=== PATIENT | male | born 1950 | race Hispanic/Latino ===

== ENCOUNTER 2019-09-01 00:28 | Inpatient (IN) | payer MEDICARE ==
[2019-09-01] VITALS (37 sets, daily range): BP systolic 118–160; BP diastolic 57–85
[~2019-09-01 00:28] MED LIST: ASPI-555 PO; GLIM1TAB3 PO; LEVO50TA11 PO; METF-444 PO; NITR.4 SL; PRAS10TA6 PO; PRAV20TA4 PO; PREG75 PO; TAMS0.4C32 PO
[2019-09-01] MEDS ORDERED: ONDANSETRON HCL 4 MG/2 ML VIAL ONE (00:56)
[2019-09-01] MEDS ORDERED: MORPHINE SULFATE 4 MG/1ML SYG ONE (00:56)
[2019-09-01] MEDS ORDERED: SODIUM CHLORIDE 0.9% 1000ML 1,000 ML IV ONE ×2 (00:57→05:46)
[2019-09-01 01:25] LABS: BASOPHILS % (AUTO) 1.7 % (0.0-5.0); EOSINOPHILS % (AUTO) 0.5 % (0.0-8.0); HEMATOCRIT 30.2 % (42-54); LYMPHOCYTES % (AUTO) 10.5 % (21.0-51.0); MEAN CORPUSCULAR HEMOGLOBIN 31.2 pg (27.0-33.0); MEAN CORPUSCULAR HGB CONC 33.4 g/dL (32.0-36.0); MEAN CORPUSCULAR VOLUME 93.5 fL (79-99); MONOCYTES % (AUTO) 5.2 % (3.0-13.0); NEUTROPHILS % (AUTO) 82.1 % (40.0-77.0); PLATELET COUNT (AUTO) 177 K/uL (130-400); RED BLOOD CELL COUNT(AUTO) 3.23 MIL/uL (4.50-6.20); RED CELL DISTRIBUTION WIDTH 13.9 % (11.0-15.5); WHITE BLOOD COUNT (AUTO) 14.6 K/uL (4.8-10.8)
[2019-09-01 01:43] LABS: CREATININE 1.1 mg/dL (0.5-1.5); POTASSIUM 5.1 mmol/L (3.5-5.1)
[2019-09-01 01:48] LABS: ALBUMIN 3.3 g/dL (3.5-5.0); BILIRUBIN,TOTAL 0.3 mg/dL (0.2-1.0); TOTAL PROTEIN, SERUM 6.4 g/dL (6.0-8.3)
[2019-09-01] MEDS ORDERED: HYDROMORPHONE 1 MG/1 ML AMP ONE (02:25)
[2019-09-01 02:41] LABS: APPEARANCE,URINE Cloudy (CLEAR); BILIRUBIN,URINE Negative (NEGATIVE); COLOR,URINE Yellow (YELLOW); GLUCOSE, URINE (UA) 500 mg/dL (NEGATIVE); KETONES,URINE Trace mg/dL (NEGATIVE); LEUKOCYTE ESTERASE ,URINE Small (NEGATIVE); NITRATE,URINE Negative (NEGATIVE); OCCULT BLOOD,URINE Small (NEGATIVE); PH,URINE 5.5 (5.0-8.0); PROTEIN,URINE POS 1+ mg/dL (NEGATIVE)
[2019-09-01] MEDS ORDERED: INSULIN HUMULIN R 100 UNIT/ML 3ML ONE (02:48)
[2019-09-01] MEDS ORDERED: CHOL500050 PO (03:01)
[2019-09-01] MEDS ORDERED: FERS325 PO (03:01)
[2019-09-01] MEDS ORDERED: GLIM4TAB5 PO (03:01)
[2019-09-01] MEDS ORDERED: METF-446 PO (03:01)
[2019-09-01] MEDS ORDERED: LEVO25TA54 PO (03:01)
[2019-09-01] MEDS ORDERED: ATOR10 PO (03:01)
[2019-09-01 03:19] LABS: BACTERIA,URINE Few /HPF (None Seen); MUCUS,URINE Few LPF (None Seen)
[2019-09-01 07:27] LABS: HEMATOCRIT 26.4 % (42-54)
--- NOTE | 2019-09-01 07:38 | NUR ---
Received patient from ER at 0540. Awake. Alert and oriented. No c/o pain, sob. Oriented to room, call light, bed controls etc. Initial assessment completed. Call placed to Hospitalist battery container finishing hand AJ to inform of patient arrival to ICU room. Call back from Dr Shelby. Informed of patient consult/admission. Explained call had been placed to AJ to inform him of pt arrival as per his request according to IZZY Brown. No new orders. Care of patient endorsed to Sesar ASHLEY
[2019-09-01] MEDS: MORPHINE SULFATE 4 MG/1ML SYG IV PRN ×2 (12:17→17:16)
[2019-09-01] MEDS ORDERED: ONDANSETRON HCL 4 MG/2 ML VIAL IVP PRN (13:15)
[2019-09-01] MEDS ORDERED: ACETAMINOPHEN 325 MG TAB PO PRN (13:15)
[2019-09-01] MEDS ORDERED: ACETAMINOPHEN 650 MG SUPPOSITORY RC PRN (13:45)
--- NOTE | 2019-09-01 14:15 | NUR ---
DR KAM MADE AWARE VIA PHONE REGARDING NEW CONSULT
--- NOTE | 2019-09-01 14:35 | NUR ---
DC PLAN PATIENT LIVES WITH SPOUSE. INDEPENDENT ABLE TO PERFORM ADL'S. PATIENT HAS NO SERVICES OR DME'S. FEELS SAFE TO RETURN HOME. Addendum: 09/01/19 at 1439 by ISAIAH ALEXANDRE RN CM Amended: Links added.
[2019-09-01 19:10] LABS: HEMATOCRIT 24.4 % (42-54)
--- NOTE | 2019-09-01 21:35 | NUR ---
REPORT GIVEN TO GABI RANGEL. PATIENT TRANSFERRED TO ROOM 205.
--- NOTE | 2019-09-01 23:00 | NUR ---
Patient transferred to room 205 in stable condition. No pain reported. Will continue to monitor.
[2019-09-02] VITALS (7 sets, daily range): BP systolic 111–140; BP diastolic 45–83
[2019-09-02 04:30] LABS: BASOPHILS % (AUTO) 0.8 % (0.0-5.0); EOSINOPHILS % (AUTO) 0.4 % (0.0-8.0); HEMATOCRIT 22.9 % (42-54); LYMPHOCYTES % (AUTO) 24.4 % (21.0-51.0); MEAN CORPUSCULAR HEMOGLOBIN 31.5 pg (27.0-33.0); MEAN CORPUSCULAR HGB CONC 34.1 g/dL (32.0-36.0); MEAN CORPUSCULAR VOLUME 92.5 fL (79-99); MONOCYTES % (AUTO) 9.2 % (3.0-13.0); NEUTROPHILS % (AUTO) 65.2 % (40.0-77.0); PLATELET COUNT (AUTO) 157 K/uL (130-400); RED BLOOD CELL COUNT(AUTO) 2.47 MIL/uL (4.50-6.20); RED CELL DISTRIBUTION WIDTH 14.5 % (11.0-15.5); WHITE BLOOD COUNT (AUTO) 8.3 K/uL (4.8-10.8)
[2019-09-02 04:42] LABS: CREATININE 0.9 mg/dL (0.5-1.5); POTASSIUM 4.5 mmol/L (3.5-5.1)
[2019-09-02] MEDS: MORPHINE SULFATE 4 MG/1ML SYG IV PRN ×4 (05:25→21:34)
[2019-09-02] MEDS: INSULIN HUMULIN R 100 UNIT/ML 3ML SQ SCH ×4 (06:26→21:44)
[2019-09-02 07:10] LABS: HEMATOCRIT 22.7 % (42-54)
[2019-09-02] MEDS: FAMOTIDINE/PF 20 MG/2 ML VIAL IV SCH (08:10)
[2019-09-02] MEDS: ENOXAPARIN SODIUM 30 MG/0.3 ML SQ SCH (08:11)
[2019-09-02] MEDS: METOPROLOL TARTRATE 25 MG TAB PO SCH ×3 (08:13→21:33)
[2019-09-02 13:46] LABS: HEMATOCRIT 22.4 % (42-54)
[2019-09-02] MEDS ORDERED: SODIUM CHLORIDE 0.9% 250 ML IV ONE (14:52)
--- NOTE | 2019-09-02 15:09 | NUR ---
DC PLAN VISITED WITH PATIENT. SPOKE TO HIM REGARDING DC PLAN. PATIENT SAID NEEDS TO GO SOMEPLACE FEELS UNSAFE TO RETURN HOME. MD'S AGREE WITH PATIENT. ORDER FOR SNF. SPOKE TO HIM GAVE OKAY FOR [facility]. Addendum: 09/02/19 at 1510 by ISAIAH ALEXANDRE RN CM Amended: Links added.
[2019-09-02] MEDS: METFORMIN HCL 500 MG TABLET PO SCH (17:29)
[2019-09-02 18:17] LABS: HEMATOCRIT 28.7 % (42-54)
--- NOTE | 2019-09-02 19:49 | NUR ---
ASSESSMENT PATIENT WAS ASSISTED BACK INTO BED. DAUGHTER AT BEDSIDE. COMPLAINTS OF PAIN ON MOVEMENT. NO SIGNS OF DISTRESS. NO SHORTNESS OF BREATH. PATIENT MADE AWARE OF TIME THAT PAIN MEDICATION IS DUE AND WILL BRING AT THAT TIME. CALL LIGHT AND BEDSIDE TABLE WITHIN REACH. NO QUESTIONS, CONCERNS, OR NEEDS AT THIS TIME VOICED. REINFROCED PATIENT TO CALL FOR ANY NEEDS.
[2019-09-02 21:03] LABS: HEMATOCRIT 26.2 % (42-54)
[2019-09-02] MEDS: ATORVASTATIN CALCIUM 10 MG TABLET PO SCH (21:33)
[2019-09-03 04:00] VITALS: BP 151/64
[2019-09-03] MEDS: INSULIN HUMULIN R 100 UNIT/ML 3ML SQ SCH ×4 (06:41→21:06)
[2019-09-03 07:00] VITALS: BP 160/68
--- NOTE | 2019-09-03 07:30 | NUR ---
ASSESSMENT ENCOUNTERED PT IN SEMI GANT'S POSITION, A&OX3, CALM COOPERATIVE AND DOES NOT APPEAR TO BE IN ANY DISTRESS NOR ANY NEURO DEFICITS PRESENT. PT DOES C/O LEFT HIP PAIN WITH REPOSITIONING, HIP TENDER TO TOUCH WITHOUT BRUISING OR EDEMA, PT DENIES SOB, NAUSEA. PT IS ABLE TO TOLERATE FOODS, FLUIDS AND MEDICATION WITH NO THROAT CLEARING COUGH. DP/PT PULSES PALPABLE TO ALL EXTREMITIES. CALL LIGHT WITHIN REACH, FAMILY AT BEDSIDE.
[2019-09-03] MEDS ORDERED: MORPHINE SULFATE 4 MG/1ML SYG IV PRN (09:00)
[2019-09-03] MEDS ORDERED: TRAMADOL HCL 50 MG TABLET PO PRN (09:00)
[2019-09-03] MEDS ORDERED: CHOLECALCIFEROL 50000 UNIT PO SCH (09:00)
[2019-09-03] MEDS: ENOXAPARIN SODIUM 30 MG/0.3 ML SQ SCH (09:00)
[2019-09-03] MEDS ORDERED: LEVOTHYROXINE 25 MCG TABLET PO SCH (09:00)
[2019-09-03 09:34] LABS: HEMATOCRIT 26.2 % (42-54)
[2019-09-03 09:45] LABS: % IRON SATURATION 11.2 % (30-44)
[2019-09-03 11:00] VITALS: BP 163/74
[2019-09-03] MEDS: METOPROLOL TARTRATE 25 MG TAB PO SCH ×3 (12:05→21:00)
[2019-09-03] MEDS: TAMSULOSIN HCL 0.4 MG CAP.ER.24H PO SCH (12:05)
[2019-09-03] MEDS: METFORMIN HCL 500 MG TABLET PO SCH ×2 (12:06→18:22)
[2019-09-03] MEDS: FAMOTIDINE/PF 20 MG/2 ML VIAL IV SCH (12:06)
--- NOTE | 2019-09-03 14:30 | NUR ---
TRANSFER TO 4TH FLOOR REPORT GIVEN TO ROSSANA ASHLEY, PT TRANSFERRED VIA PT BED.
[2019-09-03 14:35] LABS: HEMATOCRIT 25.7 % (42-54)
[2019-09-03 17:00] VITALS: BP 117/51
--- NOTE | 2019-09-03 17:00 | NUR ---
received report form Yasmeen pt in no distress, aaox3, denies any needs at this time, iv intact, patent. family at bedside, as per ant [facility] nurse subhash romero d.c tele monitor.
[2019-09-03] MEDS: TRAMADOL HCL 50 MG TABLET PO PRN (18:24)
[2019-09-03 20:04] VITALS: BP 124/58
[2019-09-03 20:58] LABS: HEMATOCRIT 26.1 % (42-54)
[2019-09-03] MEDS: ATORVASTATIN CALCIUM 10 MG TABLET PO SCH (21:00)
[2019-09-03 23:38] VITALS: BP 118/56
[2019-09-04 04:48] VITALS: BP 114/53
[2019-09-04] MEDS: TRAMADOL HCL 50 MG TABLET PO PRN ×2 (04:50→18:01)
[2019-09-04] MEDS: INSULIN HUMULIN R 100 UNIT/ML 3ML SQ SCH ×4 (05:48→20:57)
[2019-09-04] MEDS ORDERED: LEVOTHYROXINE 25 MCG TABLET PO SCH (06:30)
[2019-09-04 07:40] VITALS: BP 117/58
[2019-09-04] MEDS: TAMSULOSIN HCL 0.4 MG CAP.ER.24H PO SCH (08:16)
[2019-09-04] MEDS: METFORMIN HCL 500 MG TABLET PO SCH ×2 (08:16→17:58)
[2019-09-04] MEDS: FAMOTIDINE/PF 20 MG/2 ML VIAL IV SCH (08:19)
[2019-09-04] MEDS: ENOXAPARIN SODIUM 30 MG/0.3 ML SQ SCH (08:20)
--- NOTE | 2019-09-04 08:30 | NUR ---
STERLING CATHETER REMOVED DISCONTINUED 16FR STERLING CATHETER, NO RESISTANCE NOTED. ENCOURAGED PATIENT TO INCREASE FLUID INTAKE, PROVIDED URINAL AND TO INFORM ME WHEN HE IS ABLE TO URINATE. WILL CONTINUE TO MONITOR.
[2019-09-04] MEDS: METOPROLOL TARTRATE 25 MG TAB PO SCH ×3 (08:48→20:51)
[2019-09-04] MEDS ORDERED: IRON SUCROSE COMPLEX 500 MG in SODIUM CHLORIDE 0.9% 50 ML IV SCH (09:00)
[2019-09-04] MEDS ORDERED: EPOETIN ALFA 10,000 UNIT/ML VIAL SQ SCH (09:00)
[2019-09-04] MEDS ORDERED: TAMSULOSIN HCL 0.4 MG CAP.ER.24H PO SCH (09:00)
[2019-09-04] MEDS: FERROUS SULFATE 325 MG TABLET.DR PO SCH ×3 (10:51→20:53)
[2019-09-04 11:00] VITALS: BP 117/51
--- NOTE | 2019-09-04 12:31 | NUR ---
PATIENT DUE TO VOID AWARE OF DISCHARGE ORDER. HOSPITALIST COMPLETED MEDICATION RECONCILIATION. ASKED ENGINEERING TEACHER TO SET UP [facility]. PATIENT STILL DUE TO VOID AT THIS TIME. WILL CONTINUE TO MONITOR.
--- NOTE | 2019-09-04 16:18 | NUR ---
BLADDER SCAN APPROXIMATELY 8 HOURS HAVE PASSED SINCE STERLING REMOVAL. PERFORMED BLADDER SCAN OBTAINED RESULT OF 229ML. PATIENT REPORTS THAT AT HOME HE USUALLY VOIDS ABOUT 3 TIMES A DAY DUE TO "PROSTATE ISSUES".
--- NOTE | 2019-09-04 16:25 | NUR ---
DR. PERDOMO SPOKE TO HOSPITALIST TO REPORT BLADDER SCAN RESULT OF 229ML. DR. PERDOMO TOLD ME THERE WAS NO NEED TO PERFORM RE-INSERT STERLING CATHETER AND OKAY TO PROCEED WITH DISCHARGE/TRANSFER TO [facility] SINCE PATIENT HAS HISTORY OF BPH, CURRENTLY TAKES FLOMAX 0.4MG PO DAILY, AND BLADDER SCAN READING IS LESS THAN 300ML. Addendum: 09/04/19 at 8 by ROSSANA VILLARREAL RN RN PATIENT AND FAMILY MADE AWARE OF MD RESPONSE.
--- NOTE | 2019-09-04 16:35 | NUR ---
[facility] S[facility] CALLED [facility] [phone] TO ATTEMPT TO GIVE NURSE REPORT. SPOKE TO "TIMMY", WHO TOLD ME HIS POSITION WAS "JUST HERE TO HELP OUT EXTRA", THAT THE "NURSE WOULD CALL ME BACK BECAUSE NO ONE COULD TAKE REPORT AT THIS TIME." PROVIDED MY DIRECT CALLBACK NUMBER TO TIMMY. AWAITING CALLBACK.
[2019-09-04 17:11] VITALS: BP 135/59
--- NOTE | 2019-09-04 17:35 | NUR ---
CEL[facility] SILVAMinh RECEIVED CALLBACK FROM NURSE CELIO OF [facility] [phone]. CELIO DID VERIFY HE RECEIVED MEDICATION RECONCILIATION FAX. INFORMED THAT PATIENT ALSO HAS WRITTEN RX FOR TYLENOL #3 1 TABLET PO Q6H PRN PAIN AND WILL BE PLACED IN PATIENT CHART COPY. INFORMED THAT PATIENT WEIGHT BEARING STATUS (TOE TOUCH WEIGHT BEARING TO LEFT LEG) AND THAT PATIENT REQUIRES MAX ASSIST. INFORMED THAT PATIENT IS PENDING 2 WEEK F/U APPOINTMENT TO BE SCHEDULED WITH DR. KAM. INFORMED THAT PATIENT HAS NOT VOIDED SINCE STERLING CATHETER REMOVAL, BLADDER SCAN RESULTS, AND HOSPITALIST RESPONSE AND OKAY TO PROCEED WITH DISCHARGE/TRANSFER. INFORMED THAT PATIENT WILL BE ARRIVING VIA EMS SINCE PATIENT REQUIRES MAX ASSIST WITH TRANSFERS.
--- NOTE | 2019-09-04 17:40 | NUR ---
DISCHARGE DISCHARGE TEACHING PROVIDED TO PATIENT, PATIENTS , AND PATIENTS DAUGHTER WHO ARE AT PATIENT BEDSIDE AT THIS TIME. INFORMED OF PATIENTS DISCHARGE RX (TYLENOL #3), PENDING 2 WEEK F/U APPT TO BE SCHEDULED WITH DR. KAM, ACTIVITY (TOE TOUCH WEIGHT BEARING TO LEFT LEG) AND PATIENT TO CONTINUE PHYSICAL THERAPY TREATMENT. INFORMED THAT PATIENTS RX (TYLENOL#3) WILL BE PLACED IN PATIENTS CHART COPY FOLDER SO [facility] STAFF MAY FILL RX. REMOVED 20G IV FROM LEFT FA. PATIENTS SIGNED DISCHARGE PAPERWORK.
--- NOTE | 2019-09-04 17:50 | NUR ---
[facility] CALLED [facility] TO REPORT PATIENT READY TO BE PICKED UP
--- NOTE | 2019-09-04 18:55 | NUR ---
[facility] FOLLOW-UP CALLED [facility] TO FOLLOW-UP. WAS INFORMED THAT PATIENT WAS "NEXT ON THE LIST" TO BE PICKED UP.
--- NOTE | 2019-09-04 19:55 | NUR ---
[facility] FOLLOW-UP CALLED [facility] TO FOLLOW-UP, WAS TOLD PATIENT "NEXT ON THE LIST." INFORMED HOUSE SUP. GABI JOHNSON [facility] HAS BEEN CALLED SINCE [phone].
[2019-09-04 20:00] VITALS: BP 102/47
[2019-09-04] MEDS: ATORVASTATIN CALCIUM 10 MG TABLET PO SCH (20:53)
--- NOTE | 2019-09-04 20:58 | NUR ---
VOID VOIDED 300 CC OF LIGHT AYAKA URINE, TOLERATED WELL, AWAITING FOR EMS TRANSPORT
--- NOTE | 2019-09-04 21:37 | NUR ---
DISCHARGE DISCHARGED TO [facility] VIA EMS ACCOMPANIED BY PATIENTS DAUGHTER
== END 2019-09-04 21:37 | DRG 552 ==
LOC: EDH 00:28 → EDHIP 02:15 → 2CH 05:40 → 2AH 23:05 → 4AH 09-03 14:30
PROVIDERS: ADMIT Student in an Organized Health Care Education/Training Program; ATTEND Student in an Organized Health Care Education/Training Program
PROC: 30233N1 Transfusion of Nonautologous Red Blood Cells into Peripheral Vein, Percutaneous Approach (ICD-10-PCS; principal; 2019-09-02)
DX: S32.14XA Type 1 fracture of sacrum, initial encounter for closed fracture (principal); S32.512A Fracture of superior rim of left pubis, initial encounter for closed fracture; S32.592A Other specified fracture of left pubis, initial encounter for closed fracture; S30.0XXA Contusion of lower back and pelvis, initial encounter; E03.9 Hypothyroidism, unspecified; W01.0XXA Fall on same level from slipping, tripping and stumbling without subsequent striking against object, initial encounter; N40.0 Benign prostatic hyperplasia without lower urinary tract symptoms; I10 Essential (primary) hypertension; N32.89 Other specified disorders of bladder; F41.9 Anxiety disorder, unspecified; E78.00 Pure hypercholesterolemia, unspecified; E11.9 Type 2 diabetes mellitus without complications; Y92.009 Unspecified place in unspecified non-institutional (private) residence as the place of occurrence of the external cause; Y93.89 Activity, other specified; Y99.8 Other external cause status; Z82.49 Family history of ischemic heart disease and other diseases of the circulatory system; Z83.3 Family history of diabetes mellitus; Z82.5 Family history of asthma and other chronic lower respiratory diseases; Z82.3 Family history of stroke; Z81.8 Family history of other mental and behavioral disorders; Z82.0 Family history of epilepsy and other diseases of the nervous system; Z95.5 Presence of coronary angioplasty implant and graft; Z79.899 Other long term (current) drug therapy; Z79.82 Long term (current) use of aspirin
CPT/HCPCS: 36415; 36430; 71045; 72192; 73502; 74150; 80048; 80053; 81001; 82948; 83540; 83550; 84484; 85014; 85018; 85025; 86850; 86900; 86901; 86922; 93005; 97039; G0378; J0885; J1170; J1650; J1756; J1815; J2270; J2405; J3490; J7030; P9016

== ENCOUNTER → 2021-05-29 | Outpatient (CLI) | payer MEDICARE ==
[~2021-05-29] VITALS: Ht 172.7 cm; Wt 82.6 kg
[~2021-05-29] MED LIST changes: -ASPI-555 PO; +ASPI-556 PO; +ATOR10 PO; +CHOL500050 PO; +FERS325 PO; -GLIM1TAB3 PO; +GLIM4TAB36 PO; +LEVO25TA54 PO; -LEVO50TA11 PO; -METF-444 PO; +METF-446 PO; -NITR.4 SL; -PRAS10TA6 PO; -PRAV20TA4 PO; -PREG75 PO
[2021-05-29] MEDS: REGADENOSON 0.4 MG/5 ML PF SYG IVP SCH (15:05)
== END | disposition home or self-care (01) ==
LOC: SHCH 08:19
PROVIDERS: ATTEND Internal Medicine Cardiovascular Disease
DX: I25.10 Atherosclerotic heart disease of native coronary artery without angina pectoris (principal); R06.09 Other forms of dyspnea
CPT/HCPCS: 78452; 93017; 96374; A9500 ×2; J2785

== ENCOUNTER → 2021-09-05 | Outpatient (CLI) | payer MEDICARE | END | disposition home or self-care (01) | LOC: SHCH 08:12 | PROVIDERS: ATTEND Internal Medicine Cardiovascular Disease | DX: I65.23 Occlusion and stenosis of bilateral carotid arteries (principal); I25.10 Atherosclerotic heart disease of native coronary artery without angina pectoris | CPT/HCPCS: 93880 ==

== ENCOUNTER 2021-11-13 17:46 | Inpatient (IN) | payer MEDICARE ==
[~2021-11-13] VITALS: Ht 170.2 cm; Wt 82.9 kg
[2021-11-13 18:22] LABS: ABG BASE EXCESS -3.5 mmol/L (-2.0-3.0); ABG HCO3 19.6 mmol/L (21.0-28.0); ABG OXYGEN SATURATION 94.3 % (95.0-99.0); ABG PCO2 31 mmHg (35-48)
[2021-11-13] MEDS ORDERED: DOXYCYCLINE HYCLATE 100 MG TABLET PO ONE (18:30)
[2021-11-13] MEDS ORDERED: DEXAMETHASONE SOD PHOSPHATE 4 MG/ML 1ML VIAL IVP ONE (18:30)
[2021-11-13] MEDS ORDERED: CEFTRIAXONE 1G VIAL IVP ONE (18:30)
[2021-11-13 18:36] LABS: BASOPHILS % (AUTO) 0.3 % (0.0-5.0); HEMATOCRIT 33.4 % (42-54); LYMPHOCYTES % (AUTO) 9.2 % (21.0-51.0); MEAN CORPUSCULAR HEMOGLOBIN 30.3 pg (27.0-33.0); MEAN CORPUSCULAR HGB CONC 36.5 g/dL (32.0-36.0); MEAN CORPUSCULAR VOLUME 83.1 fL (79-99); MONOCYTES % (AUTO) 5.9 % (3.0-13.0); NEUTROPHILS % (AUTO) 83.9 % (40.0-77.0); PLATELET COUNT (AUTO) 307 K/uL (130-400); RED BLOOD CELL COUNT(AUTO) 4.02 MIL/uL (4.50-6.20); RED CELL DISTRIBUTION WIDTH 13.5 % (11.0-15.5); WHITE BLOOD COUNT (AUTO) 8.7 K/uL (4.8-10.8)
[2021-11-13 18:59] LABS: INFLUENZA TYPE A NEGATIVE FOR TYPE A (NEG)
[2021-11-13 19:00] LABS: INFLUENZA TYPE B NEGATIVE FOR TYPE B (NEG)
[2021-11-13 19:01] LABS: B-TYPE NATRIURETIC PEPTIDE 232 pg/mL (0-100)
[2021-11-13 19:54] LABS: CRP QUANTITATIVE 81.5 mg/L (0.00-9.0)
[2021-11-13 20:19] LABS: ALBUMIN 2.5 g/dL (3.5-5.0); BILIRUBIN,TOTAL 0.6 mg/dL (0.2-1.0); TOTAL PROTEIN, SERUM 6.9 g/dL (6.0-8.3)
[2021-11-13] MEDS ORDERED: ERGOCALCIFEROL (VITAMIN D2) 50,000 UNIT CAPSULE PO ONE (20:30)
[2021-11-13] MEDS ORDERED: ASPIRIN 81MG CHEW TAB PO ONE (20:30)
[2021-11-13] MEDS ORDERED: ACETAMINOPHEN 325 MG TAB PO PRN (20:30)
[2021-11-13] MEDS ORDERED: LACTATED RINGERS 1000ML 1,000 ML IV SCH (20:30)
[2021-11-13] MEDS ORDERED: GUAIFENESIN-DM 200/20 MG 10 ML PO PRN (20:30)
[2021-11-13] MEDS ORDERED: ONDANSETRON 4MG INJ IV PRN (20:30)
[2021-11-13] MEDS ORDERED: NITROGLYCERIN 0.4 MG SL TAB SL PRN (20:30)
[2021-11-13] MEDS: DOXYCYCLINE 100MG+NS 250ML IV SCH (20:48)
[2021-11-13] MEDS: HEPARIN 5,000 UNIT VIAL SQ SCH (20:48)
[2021-11-13] MEDS: ALBUTEROL INHALER 90MCG/INH IH SCH (20:48)
[2021-11-13] MEDS ORDERED: METO-391 PO (21:12)
[2021-11-13] MEDS ORDERED: ATOR10TA69 PO (21:12)
[2021-11-13] MEDS ORDERED: FERR325T22 PO (21:12)
[2021-11-13] MEDS ORDERED: TAMS-1 PO (21:12)
[2021-11-13] MEDS ORDERED: AEC81 PO (21:12)
[2021-11-13] MEDS ORDERED: METF-446 PO (21:12)
[2021-11-13] MEDS ORDERED: ISOS30TA92 PO (21:12)
[2021-11-13] MEDS ORDERED: LEVO25CA4 PO (21:12)
[2021-11-13] MEDS ORDERED: GLIM4TAB36 PO (21:12)
[2021-11-13 21:45] LABS: APPEARANCE,URINE Clear (CLEAR); BILIRUBIN,URINE Negative (NEGATIVE); COLOR,URINE Yellow (YELLOW); GLUCOSE, URINE (UA) >=1000 mg/dL (NEGATIVE); KETONES,URINE 15 mg/dL (NEGATIVE); LEUKOCYTE ESTERASE ,URINE Negative (NEGATIVE); NITRATE,URINE Negative (NEGATIVE); OCCULT BLOOD,URINE Trace (NEGATIVE); PH,URINE 6.5 (5.0-8.0); PROTEIN,URINE Negative (NEGATIVE); UROBILINOGEN,URINE 0.2 mg/dL (0.2-1.0)
[2021-11-13 21:56] LABS: BACTERIA,URINE Rare /HPF (None Seen); RBC,URINE 0-1 /HPF (0-1); SQUAMOUS EPITHELIAL CELL,UR Rare /HPF (0-2); WBC,URINE 0-1 /HPF (0-1)
[2021-11-13] MEDS: 0.9%NACL 1000ML 1,000 ML IV SCH (22:37)
[2021-11-14] MEDS: ALBUTEROL INHALER 90MCG/INH IH SCH ×4 (02:21→20:38)
[2021-11-14 05:26] LABS: BASOPHILS % (AUTO) 0.2 % (0.0-5.0); LYMPHOCYTES % (AUTO) 9.6 % (21.0-51.0); MEAN CORPUSCULAR HEMOGLOBIN 29.2 pg (27.0-33.0); MEAN CORPUSCULAR HGB CONC 34.1 g/dL (32.0-36.0); MEAN CORPUSCULAR VOLUME 85.6 fL (79-99); MONOCYTES % (AUTO) 5.4 % (3.0-13.0); NEUTROPHILS % (AUTO) 83.8 % (40.0-77.0); PLATELET COUNT (AUTO) 342 K/uL (130-400); RED BLOOD CELL COUNT(AUTO) 3.97 MIL/uL (4.50-6.20); RED CELL DISTRIBUTION WIDTH 13.5 % (11.0-15.5); WHITE BLOOD COUNT (AUTO) 5.2 K/uL (4.8-10.8)
[2021-11-14 05:42] LABS: HEMOGLOBIN A1C 8.8 % (4.0-6.0)
[2021-11-14] MEDS: CEFTRIAXONE 1G VIAL IVP SCH ×2 (06:05→18:15)
[2021-11-14 06:06] LABS: ALBUMIN 2.6 g/dL (3.5-5.0); CREATININE 0.6 mg/dL (0.5-1.5); POTASSIUM 4.4 mmol/L (3.5-5.1)
[2021-11-14 06:40] LABS: BILIRUBIN,TOTAL 0.7 mg/dL (0.2-1.0); CRP QUANTITATIVE 102.4 mg/L (0.00-9.0); TOTAL PROTEIN, SERUM 7.1 g/dL (6.0-8.3)
[2021-11-14] MEDS: INSULIN HUMULIN R 100 UNIT/ML 3ML SQ SCH ×4 (07:28→20:39)
[2021-11-14] MEDS: LEVOTHYROXINE 25 MCG TABLET PO SCH (07:28)
[2021-11-14] MEDS: 0.9%NACL 1000ML 1,000 ML IV SCH (08:30)
[2021-11-14] MEDS: HEPARIN 5,000 UNIT VIAL SQ SCH ×3 (08:53→20:38)
[2021-11-14] MEDS: DOXYCYCLINE 100MG+NS 250ML IV SCH ×2 (08:58→20:38)
[2021-11-14] MEDS: METOPROLOL SUCCINATE 50 MG TAB.SR.24H PO SCH (08:59)
[2021-11-14] MEDS: TAMSULOSIN HCL 0.4 MG CAP.ER.24H PO SCH (08:59)
[2021-11-14] MEDS: ZINC SULFATE 220 CAPSULE PO SCH (08:59)
[2021-11-14] MEDS ORDERED: DEXAMETHASONE SOD PHOSPHATE 4 MG/ML 1ML VIAL IVP SCH (09:00)
[2021-11-14] MEDS ORDERED: ASPIRIN 81MG CHEW TAB PO SCH (09:00)
[2021-11-14] MEDS: ISOSORBIDE MONO 30MG SR TAB PO SCH (09:00)
[2021-11-14] MEDS: ASCORBIC ACID 500 MG TAB PO SCH (09:00)
[2021-11-14] MEDS: ASPIRIN 81 MG EC TAB PO SCH (09:01)
[2021-11-14] MEDS: FERROUS SULFATE 325 MG TABLET.DR PO SCH (09:01)
[2021-11-14] MEDS: PANTOPRAZOLE 40 MG/VIAL IVP SCH (09:39)
[2021-11-14] MEDS ORDERED: PHARMACY COMMUNICATION MISC SCH (10:00)
[2021-11-14] MEDS ORDERED: SOLU-MEDROL 125MG VIAL IVP SCH (11:00)
[2021-11-14] MEDS ORDERED: ENOXAPARIN SODIUM 40 MG/0.4 ML SYRINGE SQ SCH (11:18)
[2021-11-14] MEDS: BARICITINIB (EUA) 2 MG TABLET PO SCH (14:46)
[2021-11-14] MEDS ORDERED: COMPOUND IV REFRIGERATED 1 EACH IVSOLN MISC PRN (15:00)
[2021-11-14] MEDS ORDERED: REMDESIVIR (EUA) 520 200 MG in 0.9% NACL 250ML 250 ML IV ONE (15:00)
[2021-11-14 15:56] LABS: CREATININE 0.8 mg/dL (0.5-1.5); POTASSIUM 3.7 mmol/L (3.5-5.1)
[2021-11-14] MEDS: ATORVASTATIN 10 MG TABLET PO SCH (20:38)
[2021-11-14] MEDS: INSULIN GLARGINE 100 UNITS/ML 10 ML VIAL SQ SCH (20:39)
[2021-11-14] MEDS: SOLU-MEDROL 40MG VIAL IVP SCH (21:35)
[2021-11-15] MEDS: ALBUTEROL INHALER 90MCG/INH IH SCH ×4 (04:13→19:54)
[2021-11-15 04:53] VITALS: BP 150/61
[2021-11-15 05:47] LABS: HEMATOCRIT 29.6 % (42-54); LYMPHOCYTES % (AUTO) 16.9 % (21.0-51.0); MEAN CORPUSCULAR HEMOGLOBIN 29.9 pg (27.0-33.0); MEAN CORPUSCULAR HGB CONC 34.8 g/dL (32.0-36.0); MONOCYTES % (AUTO) 6.6 % (3.0-13.0); NEUTROPHILS % (AUTO) 75.5 % (40.0-77.0); PLATELET COUNT (AUTO) 320 K/uL (130-400); RED BLOOD CELL COUNT(AUTO) 3.44 MIL/uL (4.50-6.20); RED CELL DISTRIBUTION WIDTH 13.3 % (11.0-15.5); WHITE BLOOD COUNT (AUTO) 6.2 K/uL (4.8-10.8)
[2021-11-15] MEDS: REMDESIVIR LABS MISC SCH (06:00)
[2021-11-15] MEDS: CEFTRIAXONE 1G VIAL IVP SCH ×2 (06:04→17:25)
[2021-11-15] MEDS: SOLU-MEDROL 40MG VIAL IVP SCH ×3 (06:04→21:21)
[2021-11-15] MEDS: LEVOTHYROXINE 25 MCG TABLET PO SCH (06:04)
[2021-11-15] MEDS: INSULIN HUMULIN R 100 UNIT/ML 3ML SQ SCH ×4 (06:06→19:56)
[2021-11-15 06:29] LABS: ALBUMIN 2.1 g/dL (3.5-5.0); BILIRUBIN,TOTAL 0.3 mg/dL (0.2-1.0); CRP QUANTITATIVE 39.2 mg/L (0.00-9.0); POTASSIUM 4.3 mmol/L (3.5-5.1)
[2021-11-15 08:00] VITALS: BP 142/69
[2021-11-15] MEDS: DOXYCYCLINE 100MG+NS 250ML IV SCH ×2 (09:01→19:54)
[2021-11-15] MEDS: ASPIRIN 81 MG EC TAB PO SCH (09:03)
[2021-11-15] MEDS: PANTOPRAZOLE 40 MG/VIAL IVP SCH (09:03)
[2021-11-15] MEDS: FERROUS SULFATE 325 MG TABLET.DR PO SCH (09:03)
[2021-11-15] MEDS: ISOSORBIDE MONO 30MG SR TAB PO SCH (09:03)
[2021-11-15] MEDS: TAMSULOSIN HCL 0.4 MG CAP.ER.24H PO SCH (09:03)
[2021-11-15] MEDS: METOPROLOL SUCCINATE 50 MG TAB.SR.24H PO SCH (09:04)
[2021-11-15] MEDS: ZINC SULFATE 220 CAPSULE PO SCH (09:04)
[2021-11-15] MEDS: ASCORBIC ACID 500 MG TAB PO SCH (09:04)
[2021-11-15] MEDS: BARICITINIB (EUA) 2 MG TABLET PO SCH (09:04)
[2021-11-15] MEDS: HEPARIN 5,000 UNIT VIAL SQ SCH (09:09)
[2021-11-15 11:00] VITALS: BP 112/49
[2021-11-15] MEDS ORDERED: INSULIN HUMULIN R 100 UNIT/ML 3ML SQ SCH (12:30)
[2021-11-15] MEDS: REMDESIVIR (EUA) 520 100 MG in 0.9% NACL 250ML 250 ML IV SCH (14:30)
[2021-11-15 16:00] VITALS: BP 131/61
[2021-11-15] MEDS: BISACODYL 5 MG TABLET.DR PO SCH (19:53)
[2021-11-15] MEDS: ENOXAPARIN SODIUM 40 MG/0.4 ML SYRINGE SQ SCH (19:54)
[2021-11-15] MEDS: ATORVASTATIN 10 MG TABLET PO SCH (19:54)
[2021-11-15 19:56] VITALS: BP 145/62
[2021-11-15] MEDS: INSULIN GLARGINE 100 UNITS/ML 10 ML VIAL SQ SCH (19:56)
[2021-11-15 23:52] VITALS: BP 131/57
[2021-11-16] MEDS: ALBUTEROL INHALER 90MCG/INH IH SCH ×4 (02:49→19:30)
[2021-11-16 03:24] VITALS: BP 138/54
[2021-11-16 04:40] LABS: HEMATOCRIT 29.5 % (42-54); LYMPHOCYTES % (AUTO) 13.3 % (21.0-51.0); MEAN CORPUSCULAR HEMOGLOBIN 29.3 pg (27.0-33.0); MEAN CORPUSCULAR HGB CONC 33.2 g/dL (32.0-36.0); MEAN CORPUSCULAR VOLUME 88.1 fL (79-99); MONOCYTES % (AUTO) 10.4 % (3.0-13.0); NEUTROPHILS % (AUTO) 74.9 % (40.0-77.0); PLATELET COUNT (AUTO) 352 K/uL (130-400); RED BLOOD CELL COUNT(AUTO) 3.35 MIL/uL (4.50-6.20); RED CELL DISTRIBUTION WIDTH 13.9 % (11.0-15.5); WHITE BLOOD COUNT (AUTO) 7.6 K/uL (4.8-10.8)
[2021-11-16 05:03] LABS: ALBUMIN 2.2 g/dL (3.5-5.0); BILIRUBIN,TOTAL 0.3 mg/dL (0.2-1.0); CREATININE 0.9 mg/dL (0.5-1.5); CRP QUANTITATIVE 20.2 mg/L (0.00-9.0); POTASSIUM 3.8 mmol/L (3.5-5.1); TOTAL PROTEIN, SERUM 5.8 g/dL (6.0-8.3)
[2021-11-16] MEDS: REMDESIVIR LABS MISC SCH (05:39)
[2021-11-16] MEDS: SOLU-MEDROL 40MG VIAL IVP SCH ×3 (05:44→22:16)
[2021-11-16] MEDS: LEVOTHYROXINE 25 MCG TABLET PO SCH (05:44)
[2021-11-16] MEDS: CEFTRIAXONE 1G VIAL IVP SCH ×2 (05:44→17:11)
[2021-11-16] MEDS: INSULIN HUMULIN R 100 UNIT/ML 3ML SQ SCH ×7 (05:49→19:41)
[2021-11-16 08:00] VITALS: BP 110/77
[2021-11-16] MEDS: PANTOPRAZOLE 40 MG/VIAL IVP SCH (08:08)
[2021-11-16] MEDS: DOXYCYCLINE 100MG+NS 250ML IV SCH ×2 (08:09→19:38)
[2021-11-16] MEDS: TAMSULOSIN HCL 0.4 MG CAP.ER.24H PO SCH (08:09)
[2021-11-16] MEDS: FERROUS SULFATE 325 MG TABLET.DR PO SCH (08:09)
[2021-11-16] MEDS: ASPIRIN 81 MG EC TAB PO SCH (08:09)
[2021-11-16] MEDS: BISACODYL 5 MG TABLET.DR PO SCH ×2 (08:09→19:39)
[2021-11-16] MEDS: METOPROLOL SUCCINATE 50 MG TAB.SR.24H PO SCH (08:10)
[2021-11-16] MEDS: ENOXAPARIN SODIUM 40 MG/0.4 ML SYRINGE SQ SCH ×2 (08:10→19:39)
[2021-11-16] MEDS: ZINC SULFATE 220 CAPSULE PO SCH (08:10)
[2021-11-16] MEDS: ASCORBIC ACID 500 MG TAB PO SCH (08:10)
[2021-11-16] MEDS: ISOSORBIDE MONO 30MG SR TAB PO SCH (08:11)
[2021-11-16] MEDS ORDERED: 0.9% NACL 250ML 250 ML ONE (08:35)
[2021-11-16] MEDS: BARICITINIB (EUA) 2 MG TABLET PO SCH (09:06)
[2021-11-16 12:00] VITALS: BP 115/60
[2021-11-16] MEDS: REMDESIVIR (EUA) 520 100 MG in 0.9% NACL 250ML 250 ML IV SCH (14:21)
[2021-11-16 16:00] VITALS: BP 136/74
[2021-11-16] MEDS: FUROSEMIDE 20MG VIAL IV SCH (19:38)
[2021-11-16] MEDS: ATORVASTATIN 10 MG TABLET PO SCH (19:39)
[2021-11-16] MEDS: INSULIN GLARGINE 100 UNITS/ML 10 ML VIAL SQ SCH (19:43)
[2021-11-16 20:00] VITALS: BP 135/74
[2021-11-16] MEDS ORDERED: MAGNESIUM CITRATE 296 ML SOLUTION PO ONE (20:00)
[2021-11-17] VITALS: BP 138/59
[2021-11-17] MEDS: ALBUTEROL INHALER 90MCG/INH IH SCH ×4 (02:43→20:36)
[2021-11-17] MEDS: REMDESIVIR LABS MISC SCH (02:43)
[2021-11-17 04:00] VITALS: BP 129/73
[2021-11-17] MEDS: FUROSEMIDE 20MG VIAL IV SCH ×2 (05:30→20:26)
[2021-11-17] MEDS: CEFTRIAXONE 1G VIAL IVP SCH ×2 (05:31→17:36)
[2021-11-17] MEDS: LEVOTHYROXINE 25 MCG TABLET PO SCH (05:31)
[2021-11-17] MEDS: SOLU-MEDROL 40MG VIAL IVP SCH ×3 (05:31→20:26)
[2021-11-17] MEDS: INSULIN HUMULIN R 100 UNIT/ML 3ML SQ SCH ×7 (05:52→20:29)
[2021-11-17 06:00] LABS: HEMATOCRIT 31.3 % (42-54); LYMPHOCYTES % (AUTO) 13.7 % (21.0-51.0); MEAN CORPUSCULAR HEMOGLOBIN 29.3 pg (27.0-33.0); MEAN CORPUSCULAR HGB CONC 33.2 g/dL (32.0-36.0); MEAN CORPUSCULAR VOLUME 88.2 fL (79-99); MONOCYTES % (AUTO) 8.9 % (3.0-13.0); NEUTROPHILS % (AUTO) 76.3 % (40.0-77.0); PLATELET COUNT (AUTO) 354 K/uL (130-400); RED BLOOD CELL COUNT(AUTO) 3.55 MIL/uL (4.50-6.20); RED CELL DISTRIBUTION WIDTH 14.2 % (11.0-15.5); WHITE BLOOD COUNT (AUTO) 6.6 K/uL (4.8-10.8)
[2021-11-17 06:30] LABS: B-TYPE NATRIURETIC PEPTIDE 87 pg/mL (0-100)
[2021-11-17 06:32] LABS: ALBUMIN 2.2 g/dL (3.5-5.0); BILIRUBIN,TOTAL 0.4 mg/dL (0.2-1.0); CREATININE 0.9 mg/dL (0.5-1.5); CRP QUANTITATIVE 13.6 mg/L (0.00-9.0); TOTAL PROTEIN, SERUM 5.5 g/dL (6.0-8.3)
[2021-11-17 06:57] LABS: ABG BASE EXCESS 3.2 mmol/L (-2.0-3.0); ABG HCO3 26.8 mmol/L (21.0-28.0); ABG OXYGEN SATURATION 89.4 % (95.0-99.0); ABG PCO2 38 mmHg (35-48)
[2021-11-17 08:00] VITALS: BP 153/75
[2021-11-17] MEDS: TAMSULOSIN HCL 0.4 MG CAP.ER.24H PO SCH (08:15)
[2021-11-17] MEDS: PANTOPRAZOLE 40 MG/VIAL IVP SCH (08:15)
[2021-11-17] MEDS: FERROUS SULFATE 325 MG TABLET.DR PO SCH (08:15)
[2021-11-17] MEDS: BISACODYL 5 MG TABLET.DR PO SCH ×2 (08:15→20:26)
[2021-11-17] MEDS: ASPIRIN 81 MG EC TAB PO SCH (08:15)
[2021-11-17] MEDS: DOXYCYCLINE 100MG+NS 250ML IV SCH ×2 (08:15→20:26)
[2021-11-17] MEDS: ASCORBIC ACID 500 MG TAB PO SCH (08:16)
[2021-11-17] MEDS: ZINC SULFATE 220 CAPSULE PO SCH (08:16)
[2021-11-17] MEDS: ISOSORBIDE MONO 30MG SR TAB PO SCH (08:16)
[2021-11-17] MEDS: METOPROLOL SUCCINATE 50 MG TAB.SR.24H PO SCH (08:16)
[2021-11-17] MEDS: ENOXAPARIN SODIUM 40 MG/0.4 ML SYRINGE SQ SCH ×2 (08:17→20:28)
[2021-11-17] MEDS: BARICITINIB (EUA) 2 MG TABLET PO SCH (09:02)
[2021-11-17] MEDS ORDERED: FUROSEMIDE 20MG VIAL IV SCH (10:00)
[2021-11-17 11:02] VITALS: BP 128/67
[2021-11-17] MEDS: REMDESIVIR (EUA) 520 100 MG in 0.9% NACL 250ML 250 ML IV SCH (14:28)
[2021-11-17 16:06] VITALS: BP 135/65
[2021-11-17 20:00] VITALS: BP 137/58
[2021-11-17] MEDS: ATORVASTATIN 10 MG TABLET PO SCH (20:26)
[2021-11-17] MEDS: INSULIN GLARGINE 100 UNITS/ML 10 ML VIAL SQ SCH (20:30)
[2021-11-18] VITALS: BP 131/78
[2021-11-18] MEDS: ALBUTEROL INHALER 90MCG/INH IH SCH ×4 (02:01→19:17)
[2021-11-18 04:00] VITALS: BP 134/71
[2021-11-18 04:55] LABS: HEMATOCRIT 31.9 % (42-54); LYMPHOCYTES % (AUTO) 8.7 % (21.0-51.0); MEAN CORPUSCULAR HEMOGLOBIN 28.8 pg (27.0-33.0); MEAN CORPUSCULAR HGB CONC 32.9 g/dL (32.0-36.0); MEAN CORPUSCULAR VOLUME 87.4 fL (79-99); MONOCYTES % (AUTO) 9.4 % (3.0-13.0); NEUTROPHILS % (AUTO) 81.1 % (40.0-77.0); PLATELET COUNT (AUTO) 373 K/uL (130-400); RED BLOOD CELL COUNT(AUTO) 3.65 MIL/uL (4.50-6.20); RED CELL DISTRIBUTION WIDTH 14.1 % (11.0-15.5); WHITE BLOOD COUNT (AUTO) 8.9 K/uL (4.8-10.8)
[2021-11-18 05:04] LABS: POTASSIUM 3.8 mmol/L (3.5-5.1)
[2021-11-18] MEDS: INSULIN HUMULIN R 100 UNIT/ML 3ML SQ SCH ×7 (05:19→20:20)
[2021-11-18] MEDS: REMDESIVIR LABS MISC SCH (06:00)
[2021-11-18] MEDS: LEVOTHYROXINE 25 MCG TABLET PO SCH (06:10)
[2021-11-18] MEDS: CEFTRIAXONE 1G VIAL IVP SCH ×2 (06:10→18:04)
[2021-11-18] MEDS: SOLU-MEDROL 40MG VIAL IVP SCH ×2 (06:11→18:04)
[2021-11-18] MEDS: FUROSEMIDE 20MG VIAL IV SCH ×2 (06:15→19:19)
[2021-11-18 07:10] VITALS: BP 131/66
[2021-11-18] MEDS ORDERED: 0.9% NACL 250ML 250 ML ONE (09:05)
[2021-11-18] MEDS: PANTOPRAZOLE 40 MG/VIAL IVP SCH (09:12)
[2021-11-18] MEDS: ENOXAPARIN SODIUM 40 MG/0.4 ML SYRINGE SQ SCH ×2 (09:12→20:19)
[2021-11-18] MEDS: BISACODYL 5 MG TABLET.DR PO SCH ×2 (09:12→20:17)
[2021-11-18] MEDS: ASPIRIN 81 MG EC TAB PO SCH (09:13)
[2021-11-18] MEDS: ISOSORBIDE MONO 30MG SR TAB PO SCH (09:13)
[2021-11-18] MEDS: ASCORBIC ACID 500 MG TAB PO SCH (09:13)
[2021-11-18] MEDS: TAMSULOSIN HCL 0.4 MG CAP.ER.24H PO SCH (09:13)
[2021-11-18] MEDS: METOPROLOL SUCCINATE 50 MG TAB.SR.24H PO SCH (09:13)
[2021-11-18] MEDS: ZINC SULFATE 220 CAPSULE PO SCH (09:13)
[2021-11-18] MEDS: BARICITINIB (EUA) 2 MG TABLET PO SCH (09:13)
[2021-11-18] MEDS: FERROUS SULFATE 325 MG TABLET.DR PO SCH (09:13)
[2021-11-18] MEDS: DOXYCYCLINE 100MG+NS 250ML IV SCH ×2 (09:14→20:17)
[2021-11-18 11:00] VITALS: BP 136/67
[2021-11-18 13:35] LABS: ALBUMIN 2.3 g/dL (3.5-5.0); BILIRUBIN,DIRECT 0.2 mg/dL (0.0-0.3); BILIRUBIN,TOTAL 0.3 mg/dL (0.2-1.0); TOTAL PROTEIN, SERUM 5.7 g/dL (6.0-8.3)
[2021-11-18 15:20] VITALS: BP 114/64
[2021-11-18] MEDS: REMDESIVIR (EUA) 520 100 MG in 0.9% NACL 250ML 250 ML IV SCH (15:25)
[2021-11-18 20:00] VITALS: BP 123/68
[2021-11-18] MEDS: ATORVASTATIN 10 MG TABLET PO SCH (20:17)
[2021-11-18] MEDS: INSULIN GLARGINE 100 UNITS/ML 10 ML VIAL SQ SCH (20:21)
[2021-11-19] VITALS (7 sets, daily range): BP systolic 106–138; BP diastolic 52–67
[2021-11-19] MEDS: ALBUTEROL INHALER 90MCG/INH IH SCH ×4 (01:28→20:29)
[2021-11-19 04:06] LABS: BASOPHILS % (AUTO) 0.1 % (0.0-5.0); HEMATOCRIT 32.7 % (42-54); LYMPHOCYTES % (AUTO) 9.7 % (21.0-51.0); MEAN CORPUSCULAR HEMOGLOBIN 29.7 pg (27.0-33.0); MEAN CORPUSCULAR HGB CONC 33.6 g/dL (32.0-36.0); MEAN CORPUSCULAR VOLUME 88.4 fL (79-99); MONOCYTES % (AUTO) 6.8 % (3.0-13.0); NEUTROPHILS % (AUTO) 82.3 % (40.0-77.0); PLATELET COUNT (AUTO) 375 K/uL (130-400); RED CELL DISTRIBUTION WIDTH 14.5 % (11.0-15.5); WHITE BLOOD COUNT (AUTO) 11.1 K/uL (4.8-10.8)
[2021-11-19 04:22] LABS: CREATININE 1.1 mg/dL (0.5-1.5); MAGNESIUM 1.7 mg/dL (1.80-2.40); PHOSPHORUS 3.4 mg/dL (2.5-4.9)
[2021-11-19] MEDS: SOLU-MEDROL 40MG VIAL IVP SCH ×2 (05:11→17:11)
[2021-11-19] MEDS: CEFTRIAXONE 1G VIAL IVP SCH (05:32)
[2021-11-19] MEDS: INSULIN HUMULIN R 100 UNIT/ML 3ML SQ SCH ×7 (05:56→20:27)
[2021-11-19] MEDS: LEVOTHYROXINE 25 MCG TABLET PO SCH (06:04)
[2021-11-19] MEDS: FUROSEMIDE 20MG VIAL IV SCH (06:05)
[2021-11-19] MEDS: BISACODYL 5 MG TABLET.DR PO SCH ×2 (09:00→20:21)
[2021-11-19] MEDS: PANTOPRAZOLE 40 MG/VIAL IVP SCH (10:14)
[2021-11-19] MEDS: DOXYCYCLINE 100MG+NS 250ML IV SCH (10:14)
[2021-11-19] MEDS: BARICITINIB (EUA) 2 MG TABLET PO SCH (10:15)
[2021-11-19] MEDS: ISOSORBIDE MONO 30MG SR TAB PO SCH (10:15)
[2021-11-19] MEDS: ASCORBIC ACID 500 MG TAB PO SCH (10:15)
[2021-11-19] MEDS: FERROUS SULFATE 325 MG TABLET.DR PO SCH (10:15)
[2021-11-19] MEDS: ZINC SULFATE 220 CAPSULE PO SCH (10:15)
[2021-11-19] MEDS: ENOXAPARIN SODIUM 40 MG/0.4 ML SYRINGE SQ SCH (10:15)
[2021-11-19] MEDS: METOPROLOL SUCCINATE 50 MG TAB.SR.24H PO SCH (10:15)
[2021-11-19] MEDS: TAMSULOSIN HCL 0.4 MG CAP.ER.24H PO SCH (10:15)
[2021-11-19] MEDS: ASPIRIN 81 MG EC TAB PO SCH (10:27)
[2021-11-19] MEDS: APIXABAN 2.5 MG TABLET PO SCH (20:20)
[2021-11-19] MEDS: ATORVASTATIN 10 MG TABLET PO SCH (20:20)
[2021-11-19] MEDS: INSULIN GLARGINE 100 UNITS/ML 10 ML VIAL SQ SCH (20:27)
[2021-11-19] MEDS: ACETAZOLAMIDE SODIUM 500 MG VIAL IV SCH (20:47)
[2021-11-20] MEDS: ALBUTEROL INHALER 90MCG/INH IH SCH ×4 (01:34→19:16)
[2021-11-20 03:20] VITALS: BP 116/61
[2021-11-20] MEDS: LEVOTHYROXINE 25 MCG TABLET PO SCH (06:03)
[2021-11-20] MEDS: SOLU-MEDROL 40MG VIAL IVP SCH ×2 (06:04→17:59)
[2021-11-20] MEDS: INSULIN HUMULIN R 100 UNIT/ML 3ML SQ SCH ×7 (06:05→20:41)
[2021-11-20 07:45] VITALS: BP 130/63
[2021-11-20] MEDS: BISACODYL 5 MG TABLET.DR PO SCH ×2 (08:23→20:41)
[2021-11-20] MEDS: TAMSULOSIN HCL 0.4 MG CAP.ER.24H PO SCH (08:23)
[2021-11-20] MEDS: APIXABAN 2.5 MG TABLET PO SCH ×2 (08:24→20:41)
[2021-11-20] MEDS: ASCORBIC ACID 500 MG TAB PO SCH (08:24)
[2021-11-20] MEDS: METOPROLOL SUCCINATE 50 MG TAB.SR.24H PO SCH (08:24)
[2021-11-20] MEDS: ZINC SULFATE 220 CAPSULE PO SCH (08:24)
[2021-11-20] MEDS: ASPIRIN 81 MG EC TAB PO SCH (08:24)
[2021-11-20] MEDS: FERROUS SULFATE 325 MG TABLET.DR PO SCH (08:25)
[2021-11-20] MEDS: PANTOPRAZOLE 40 MG TAB DR PO SCH (08:25)
[2021-11-20] MEDS: ISOSORBIDE MONO 30MG SR TAB PO SCH (08:25)
[2021-11-20] MEDS: BARICITINIB (EUA) 2 MG TABLET PO SCH (08:26)
[2021-11-20] MEDS: ACETAZOLAMIDE SODIUM 500 MG VIAL IV SCH ×2 (08:26→20:41)
[2021-11-20] MEDS ORDERED: DEXA6TAB PO (11:34)
[2021-11-20] MEDS ORDERED: ZINC220C6 PO (11:34)
[2021-11-20] MEDS ORDERED: BARI2TAB PO (11:34)
[2021-11-20] MEDS ORDERED: APIX2.5T PO (11:34)
[2021-11-20] MEDS ORDERED: ASCO500T20 PO (11:34)
[2021-11-20] MEDS ORDERED: PANT40TA PO (11:34)
[2021-11-20] MEDS ORDERED: ALBUHFA IH (11:34)
[2021-11-20] MEDS ORDERED: INHA1EAC51 MC (11:35)
[2021-11-20 11:45] VITALS: BP 127/62
[2021-11-20 15:45] VITALS: BP 119/68
[2021-11-20 19:57] VITALS: BP 115/55
[2021-11-20] MEDS: ATORVASTATIN 10 MG TABLET PO SCH (20:41)
[2021-11-20] MEDS: INSULIN GLARGINE 100 UNITS/ML 10 ML VIAL SQ SCH (20:42)
[2021-11-20 23:25] VITALS: BP 122/56
[2021-11-21] MEDS: ALBUTEROL INHALER 90MCG/INH IH SCH ×4 (01:51→19:47)
[2021-11-21 03:47] VITALS: BP 124/67
[2021-11-21] MEDS: SOLU-MEDROL 40MG VIAL IVP SCH ×2 (05:43→18:13)
[2021-11-21] MEDS: LEVOTHYROXINE 25 MCG TABLET PO SCH (05:43)
[2021-11-21] MEDS: INSULIN HUMULIN R 100 UNIT/ML 3ML SQ SCH ×7 (05:45→20:23)
[2021-11-21 08:00] VITALS: BP 145/64
[2021-11-21] MEDS: BISACODYL 5 MG TABLET.DR PO SCH ×2 (08:20→20:22)
[2021-11-21] MEDS: METOPROLOL SUCCINATE 50 MG TAB.SR.24H PO SCH (08:20)
[2021-11-21] MEDS: TAMSULOSIN HCL 0.4 MG CAP.ER.24H PO SCH (08:21)
[2021-11-21] MEDS: ASCORBIC ACID 500 MG TAB PO SCH (08:21)
[2021-11-21] MEDS: ZINC SULFATE 220 CAPSULE PO SCH (08:21)
[2021-11-21] MEDS: ASPIRIN 81 MG EC TAB PO SCH (08:21)
[2021-11-21] MEDS: APIXABAN 2.5 MG TABLET PO SCH ×2 (08:22→20:23)
[2021-11-21] MEDS: PANTOPRAZOLE 40 MG TAB DR PO SCH (08:22)
[2021-11-21] MEDS: FERROUS SULFATE 325 MG TABLET.DR PO SCH (08:22)
[2021-11-21] MEDS: ISOSORBIDE MONO 30MG SR TAB PO SCH (08:22)
[2021-11-21] MEDS: ACETAZOLAMIDE SODIUM 500 MG VIAL IV SCH ×2 (08:46→20:22)
[2021-11-21] MEDS: BARICITINIB (EUA) 2 MG TABLET PO SCH (10:21)
[2021-11-21 12:00] VITALS: BP 132/63
[2021-11-21 16:00] VITALS: BP 121/61
[2021-11-21 20:00] VITALS: BP 128/71
[2021-11-21] MEDS: ATORVASTATIN 10 MG TABLET PO SCH (20:23)
[2021-11-21] MEDS: INSULIN GLARGINE 100 UNITS/ML 10 ML VIAL SQ SCH (20:25)
[2021-11-22] VITALS: BP 122/59
[2021-11-22] MEDS: ALBUTEROL INHALER 90MCG/INH IH SCH ×4 (02:14→20:27)
[2021-11-22 04:00] VITALS: BP 122/61
[2021-11-22] MEDS: SOLU-MEDROL 40MG VIAL IVP SCH ×2 (05:32→18:00)
[2021-11-22] MEDS: LEVOTHYROXINE 25 MCG TABLET PO SCH (06:11)
[2021-11-22] MEDS: INSULIN HUMULIN R 100 UNIT/ML 3ML SQ SCH ×7 (06:15→21:00)
[2021-11-22 08:00] VITALS: BP 125/58
[2021-11-22] MEDS: ASPIRIN 81 MG EC TAB PO SCH (09:04)
[2021-11-22] MEDS: BISACODYL 5 MG TABLET.DR PO SCH ×2 (09:04→20:36)
[2021-11-22] MEDS: ASCORBIC ACID 500 MG TAB PO SCH (09:05)
[2021-11-22] MEDS: ISOSORBIDE MONO 30MG SR TAB PO SCH (09:05)
[2021-11-22] MEDS: ZINC SULFATE 220 CAPSULE PO SCH (09:05)
[2021-11-22] MEDS: TAMSULOSIN HCL 0.4 MG CAP.ER.24H PO SCH (09:05)
[2021-11-22] MEDS: METOPROLOL SUCCINATE 50 MG TAB.SR.24H PO SCH (09:05)
[2021-11-22] MEDS: FERROUS SULFATE 325 MG TABLET.DR PO SCH (09:06)
[2021-11-22] MEDS: PANTOPRAZOLE 40 MG TAB DR PO SCH (09:06)
[2021-11-22] MEDS: APIXABAN 2.5 MG TABLET PO SCH ×2 (09:07→20:36)
[2021-11-22] MEDS: BARICITINIB (EUA) 2 MG TABLET PO SCH (09:07)
[2021-11-22] MEDS: ACETAZOLAMIDE SODIUM 500 MG VIAL IV SCH ×2 (10:38→20:35)
[2021-11-22 12:00] VITALS: BP 124/59
[2021-11-22] MEDS: ZOSYN 3.375GM +NS 50ML IV SCH (15:30)
[2021-11-22 16:00] VITALS: BP 120/57
[2021-11-22 20:00] VITALS: BP 97/54
[2021-11-22] MEDS: BALSAM PERU/CASTOR OIL 60 GM TUBE TP SCH (20:34)
[2021-11-22] MEDS: ATORVASTATIN 10 MG TABLET PO SCH (20:36)
[2021-11-22] MEDS: INSULIN GLARGINE 100 UNITS/ML 10 ML VIAL SQ SCH (21:29)
[2021-11-23] VITALS (7 sets, daily range): BP systolic 116–153; BP diastolic 55–71
[2021-11-23] MEDS: ALBUTEROL INHALER 90MCG/INH IH SCH ×4 (00:45→19:52)
[2021-11-23] MEDS: ZOSYN 3.375GM +NS 50ML IV SCH ×2 (03:54→17:43)
[2021-11-23] MEDS: SOLU-MEDROL 40MG VIAL IVP SCH ×2 (05:56→17:42)
[2021-11-23] MEDS: INSULIN HUMULIN R 100 UNIT/ML 3ML SQ SCH ×7 (06:11→21:00)
[2021-11-23] MEDS: LEVOTHYROXINE 25 MCG TABLET PO SCH (07:28)
[2021-11-23] MEDS: BALSAM PERU/CASTOR OIL 60 GM TUBE TP SCH ×2 (09:33→21:18)
[2021-11-23] MEDS: TAMSULOSIN HCL 0.4 MG CAP.ER.24H PO SCH (11:11)
[2021-11-23] MEDS: BISACODYL 5 MG TABLET.DR PO SCH (11:11)
[2021-11-23] MEDS: METOPROLOL SUCCINATE 50 MG TAB.SR.24H PO SCH (11:11)
[2021-11-23] MEDS: ASCORBIC ACID 500 MG TAB PO SCH (11:11)
[2021-11-23] MEDS: PANTOPRAZOLE 40 MG TAB DR PO SCH (11:11)
[2021-11-23] MEDS: ACETAZOLAMIDE SODIUM 500 MG VIAL IV SCH (11:11)
[2021-11-23] MEDS: ZINC SULFATE 220 CAPSULE PO SCH (11:11)
[2021-11-23] MEDS: ASPIRIN 81 MG EC TAB PO SCH (11:11)
[2021-11-23] MEDS: ISOSORBIDE MONO 30MG SR TAB PO SCH (11:12)
[2021-11-23] MEDS: BARICITINIB (EUA) 2 MG TABLET PO SCH (11:12)
[2021-11-23] MEDS: FERROUS SULFATE 325 MG TABLET.DR PO SCH (11:12)
[2021-11-23] MEDS ORDERED: BISACODYL 5 MG TABLET.DR PO PRN (18:30)
[2021-11-23 18:33] LABS: BASOPHILS % (AUTO) 0.1 % (0.0-5.0); HEMATOCRIT 33.4 % (42-54); LYMPHOCYTES % (AUTO) 1.8 % (21.0-51.0); MEAN CORPUSCULAR HEMOGLOBIN 28.4 pg (27.0-33.0); MEAN CORPUSCULAR HGB CONC 31.7 g/dL (32.0-36.0); MEAN CORPUSCULAR VOLUME 89.5 fL (79-99); MONOCYTES % (AUTO) 5.7 % (3.0-13.0); PLATELET COUNT (AUTO) 190 K/uL (130-400); RED BLOOD CELL COUNT(AUTO) 3.73 MIL/uL (4.50-6.20); RED CELL DISTRIBUTION WIDTH 14.6 % (11.0-15.5); WHITE BLOOD COUNT (AUTO) 10.7 K/uL (4.8-10.8)
[2021-11-23 18:47] LABS: CREATININE 1.4 mg/dL (0.5-1.5); POTASSIUM 3.8 mmol/L (3.5-5.1)
[2021-11-23 18:48] LABS: INR 1.08 (0.85-1.15); PROTHROMBIN TIME 11.7 SEC (9.6-11.6)
[2021-11-23 18:50] LABS: PARTIAL THROMBOPLASTIN TIME 28.1 SEC (26.3-35.5)
[2021-11-23 18:52] LABS: ALBUMIN 1.8 g/dL (3.5-5.0); BILIRUBIN,TOTAL 0.4 mg/dL (0.2-1.0); CRP QUANTITATIVE 6.4 mg/L (0.00-9.0); TOTAL PROTEIN, SERUM 4.7 g/dL (6.0-8.3)
[2021-11-23] MEDS ORDERED: GUAIFENESIN-DM 200/20 MG 10 ML NG PRN (20:30)
[2021-11-23] MEDS: CARVEDILOL 3.125 MG TABLET PO SCH (21:18)
[2021-11-23] MEDS: INSULIN GLARGINE 100 UNITS/ML 10 ML VIAL SQ SCH (21:18)
[2021-11-23] MEDS: ATORVASTATIN 10 MG TABLET NG SCH (21:18)
[2021-11-24] MEDS: ALBUTEROL INHALER 90MCG/INH IH SCH ×4 (01:24→19:35)
[2021-11-24] MEDS: ZOSYN 3.375GM +NS 50ML IV SCH ×2 (03:14→16:27)
[2021-11-24 03:42] VITALS: BP 133/65
[2021-11-24] MEDS: INSULIN HUMULIN R 100 UNIT/ML 3ML SQ SCH ×7 (05:56→20:41)
[2021-11-24] MEDS: LEVOTHYROXINE 25 MCG TABLET NG SCH (06:42)
[2021-11-24] MEDS: BALSAM PERU/CASTOR OIL 60 GM TUBE TP SCH ×2 (07:49→20:47)
[2021-11-24 08:00] VITALS: BP 128/63
[2021-11-24] MEDS: ASPIRIN 81 MG EC TAB PO SCH (08:55)
[2021-11-24] MEDS: ASCORBIC ACID 500 MG TAB NG SCH (08:55)
[2021-11-24] MEDS: ZINC SULFATE 220 CAPSULE NG SCH (08:55)
[2021-11-24] MEDS: PANTOPRAZOLE 40 MG TAB DR GT SCH (08:55)
[2021-11-24] MEDS: DEXAMETHASONE SOD PHOSPHATE 4 MG/ML 1ML VIAL IV SCH (08:55)
[2021-11-24] MEDS: TAMSULOSIN HCL 0.4 MG CAP.ER.24H NG SCH (08:55)
[2021-11-24] MEDS: ISOSORBIDE MONO 30MG SR TAB PO SCH (08:57)
[2021-11-24] MEDS: CARVEDILOL 3.125 MG TABLET PO SCH ×2 (08:59→20:19)
[2021-11-24 12:00] VITALS: BP 141/60
[2021-11-24 16:00] VITALS: BP 126/60
[2021-11-24 19:49] VITALS: BP 140/59
[2021-11-24] MEDS: ATORVASTATIN 10 MG TABLET NG SCH (20:19)
[2021-11-24] MEDS: INSULIN GLARGINE 100 UNITS/ML 10 ML VIAL SQ SCH (20:47)
[2021-11-24 23:33] VITALS: BP 144/57
[2021-11-25] VITALS (23 sets, daily range): BP systolic 103–160; BP diastolic 49–86
[2021-11-25] MEDS: ALBUTEROL INHALER 90MCG/INH IH SCH ×4 (03:16→20:34)
[2021-11-25] MEDS: ZOSYN 3.375GM +NS 50ML IV SCH ×2 (03:17→16:53)
[2021-11-25] MEDS: INSULIN HUMULIN R 100 UNIT/ML 3ML SQ SCH ×7 (05:31→20:34)
[2021-11-25] MEDS: LEVOTHYROXINE 25 MCG TABLET NG SCH (05:33)
[2021-11-25] MEDS: BALSAM PERU/CASTOR OIL 60 GM TUBE TP SCH ×2 (08:44→20:35)
[2021-11-25] MEDS: PANTOPRAZOLE 40 MG TAB DR GT SCH (09:00)
[2021-11-25] MEDS: ASCORBIC ACID 500 MG TAB NG SCH (09:00)
[2021-11-25] MEDS: ASPIRIN 81 MG EC TAB PO SCH (09:00)
[2021-11-25] MEDS: TAMSULOSIN HCL 0.4 MG CAP.ER.24H NG SCH (09:00)
[2021-11-25] MEDS: ZINC SULFATE 220 CAPSULE NG SCH (09:00)
[2021-11-25] MEDS: ISOSORBIDE MONO 30MG SR TAB PO SCH (09:31)
[2021-11-25] MEDS: DEXAMETHASONE SOD PHOSPHATE 4 MG/ML 1ML VIAL IV SCH (09:31)
[2021-11-25] MEDS: CARVEDILOL 3.125 MG TABLET PO SCH ×2 (09:32→20:34)
[2021-11-25] MEDS ORDERED: LIDOCAINE PF 100MG/5ML (2%) SYRINGE 5ML ONE (12:02)
[2021-11-25] MEDS ORDERED: PROPOFOL 10 MG/ML 20ML VIAL IV ONE (12:02)
[2021-11-25] MEDS ORDERED: CEFAZOLIN SODIUM 1 GM VIAL ONE (12:05)
[2021-11-25] MEDS: ATORVASTATIN 10 MG TABLET NG SCH (20:34)
[2021-11-25] MEDS ORDERED: LACTULOSE 20 GM/30 ML UDCUP PO SCH (21:00)
[2021-11-25] MEDS: INSULIN GLARGINE 100 UNITS/ML 10 ML VIAL SQ SCH (21:29)
[2021-11-26] MEDS: ALBUTEROL INHALER 90MCG/INH IH SCH ×4 (01:10→20:16)
[2021-11-26] MEDS: ZOSYN 3.375GM +NS 50ML IV SCH ×2 (03:08→15:30)
[2021-11-26 04:01] VITALS: BP 148/69
[2021-11-26] MEDS: LEVOTHYROXINE 25 MCG TABLET NG SCH (06:12)
[2021-11-26] MEDS: INSULIN HUMULIN R 100 UNIT/ML 3ML SQ SCH ×6 (06:18→21:18)
[2021-11-26 08:28] VITALS: BP 133/55
[2021-11-26] MEDS: ASPIRIN 81 MG EC TAB PO SCH (09:26)
[2021-11-26] MEDS: PANTOPRAZOLE 40 MG TAB DR GT SCH (09:26)
[2021-11-26] MEDS: ZINC SULFATE 220 CAPSULE NG SCH (09:26)
[2021-11-26] MEDS: CARVEDILOL 3.125 MG TABLET PO SCH ×2 (09:26→20:17)
[2021-11-26] MEDS: ISOSORBIDE MONO 30MG SR TAB PO SCH (09:26)
[2021-11-26] MEDS: TAMSULOSIN HCL 0.4 MG CAP.ER.24H NG SCH (09:26)
[2021-11-26] MEDS: ASCORBIC ACID 500 MG TAB NG SCH (09:26)
[2021-11-26] MEDS: BALSAM PERU/CASTOR OIL 60 GM TUBE TP SCH ×2 (09:27→20:17)
[2021-11-26] MEDS: DEXAMETHASONE SOD PHOSPHATE 4 MG/ML 1ML VIAL IV SCH (09:27)
[2021-11-26 12:23] VITALS: BP 119/53
[2021-11-26 16:48] VITALS: BP 125/59
[2021-11-26] MEDS ORDERED: FUROSEMIDE 40MG VIAL IV SCH (18:30)
[2021-11-26 20:00] VITALS: BP 140/75
[2021-11-26] MEDS: ATORVASTATIN 10 MG TABLET NG SCH (20:16)
[2021-11-26] MEDS: INSULIN GLARGINE 100 UNITS/ML 10 ML VIAL SQ SCH (21:18)
[2021-11-27] VITALS: BP_SYST 128; BP_SYST 139; BP_DIAS 61; BP_DIAS 62
[2021-11-27] MEDS: ALBUTEROL INHALER 90MCG/INH IH SCH ×4 (01:34→20:50)
[2021-11-27] MEDS: ZOSYN 3.375GM +NS 50ML IV SCH ×2 (02:58→18:02)
[2021-11-27 04:00] VITALS: BP 139/62
[2021-11-27 05:06] LABS: HEMATOCRIT 29.4 % (42-54); MEAN CORPUSCULAR HEMOGLOBIN 30.1 pg (27.0-33.0); MEAN CORPUSCULAR HGB CONC 32.7 g/dL (32.0-36.0); MEAN CORPUSCULAR VOLUME 92.2 fL (79-99); RED BLOOD CELL COUNT(AUTO) 3.19 MIL/uL (4.50-6.20); RED CELL DISTRIBUTION WIDTH 14.7 % (11.0-15.5); WHITE BLOOD COUNT (AUTO) 10.1 K/uL (4.8-10.8)
[2021-11-27 05:18] LABS: BILIRUBIN,TOTAL 0.5 mg/dL (0.2-1.0); CREATININE 0.8 mg/dL (0.5-1.5); PHOSPHORUS 2.3 mg/dL (2.5-4.9); TOTAL PROTEIN, SERUM 5.1 g/dL (6.0-8.3)
[2021-11-27] MEDS: LEVOTHYROXINE 25 MCG TABLET NG SCH (06:36)
[2021-11-27] MEDS: INSULIN HUMULIN R 100 UNIT/ML 3ML SQ SCH ×4 (06:36→21:10)
[2021-11-27 08:00] VITALS: BP 150/70
[2021-11-27] MEDS: BALSAM PERU/CASTOR OIL 60 GM TUBE TP SCH ×2 (09:00→20:53)
[2021-11-27] MEDS: ZINC SULFATE 220 CAPSULE NG SCH (09:21)
[2021-11-27] MEDS: ASPIRIN 81 MG EC TAB PO SCH (09:21)
[2021-11-27] MEDS: ASCORBIC ACID 500 MG TAB NG SCH (09:21)
[2021-11-27] MEDS: ISOSORBIDE MONO 30MG SR TAB PO SCH (09:21)
[2021-11-27] MEDS: TAMSULOSIN HCL 0.4 MG CAP.ER.24H NG SCH (09:22)
[2021-11-27] MEDS: PANTOPRAZOLE 40 MG TAB DR GT SCH (09:22)
[2021-11-27] MEDS: CARVEDILOL 3.125 MG TABLET PO SCH ×2 (09:25→20:53)
[2021-11-27] MEDS: INSULIN GLARGINE 100 UNITS/ML 10 ML VIAL SQ SCH ×2 (09:30→21:11)
[2021-11-27 11:31] VITALS: BP 116/56
[2021-11-27 16:00] VITALS: BP 106/54
[2021-11-27 20:00] VITALS: BP 128/60
[2021-11-27] MEDS: ATORVASTATIN 10 MG TABLET NG SCH (20:50)
[2021-11-28] VITALS: BP 128/60
[2021-11-28] MEDS: ALBUTEROL INHALER 90MCG/INH IH SCH ×3 (02:28→14:32)
[2021-11-28] MEDS: ZOSYN 3.375GM +NS 50ML IV SCH ×2 (02:57→14:27)
[2021-11-28 04:00] VITALS: BP 134/58
[2021-11-28] MEDS: INSULIN HUMULIN R 100 UNIT/ML 3ML SQ SCH ×2 (06:07→11:30)
[2021-11-28] MEDS: LEVOTHYROXINE 25 MCG TABLET NG SCH (06:07)
[2021-11-28 07:45] VITALS: BP 119/60
[2021-11-28] MEDS: CARVEDILOL 3.125 MG TABLET PO SCH (10:22)
[2021-11-28] MEDS: ISOSORBIDE MONO 30MG SR TAB PO SCH ×2 (10:22→10:23)
[2021-11-28] MEDS: TAMSULOSIN HCL 0.4 MG CAP.ER.24H NG SCH (10:22)
[2021-11-28] MEDS: PANTOPRAZOLE 40 MG TAB DR GT SCH (10:22)
[2021-11-28] MEDS: ZINC SULFATE 220 CAPSULE NG SCH (10:23)
[2021-11-28] MEDS: ASPIRIN 81 MG EC TAB PO SCH (10:23)
[2021-11-28] MEDS: ASCORBIC ACID 500 MG TAB NG SCH (10:23)
[2021-11-28] MEDS: BALSAM PERU/CASTOR OIL 60 GM TUBE TP SCH (10:24)
[2021-11-28] MEDS: INSULIN GLARGINE 100 UNITS/ML 10 ML VIAL SQ SCH (10:28)
[2021-11-28 11:05] VITALS: BP 124/55
[2021-11-28 15:25] VITALS: BP 147/71
== END 2021-11-28 17:00 | DRG 177 ==
LOC: EDH 17:46 → EDHIP 20:15 → 4AH 11-15 03:55
PROVIDERS: ADMIT Internal Medicine; ATTEND Internal Medicine
PROC: XW0DXM6 Introduction of Baricitinib into Mouth and Pharynx, External Approach, New Technology Group 6 (ICD-10-PCS; 2021-11-14)
PROC: XW033E5 Introduction of Remdesivir Anti-infective into Peripheral Vein, Percutaneous Approach, New Technology Group 5 (ICD-10-PCS; 2021-11-14)
PROC: 5A0935A Assistance with Respiratory Ventilation, Less than 24 Consecutive Hours, High Flow/Velocity Cannula (ICD-10-PCS; 2021-11-15)
PROC: 5A0935A Assistance with Respiratory Ventilation, Less than 24 Consecutive Hours, High Flow/Velocity Cannula (ICD-10-PCS; 2021-11-19)
PROC: 0DH63UZ Insertion of Feeding Device into Stomach, Percutaneous Approach (ICD-10-PCS; principal; 2021-11-25)
DX: U07.1 COVID-19 (principal); J96.01 Acute respiratory failure with hypoxia; J12.82 Pneumonia due to coronavirus disease 2019; E43 Unspecified severe protein-calorie malnutrition; J12.81 Pneumonia due to SARS-associated coronavirus; E87.1 Hypo-osmolality and hyponatremia; D68.8 Other specified coagulation defects; R13.12 Dysphagia, oropharyngeal phase; R74.8 Abnormal levels of other serum enzymes; E03.9 Hypothyroidism, unspecified; M19.90 Unspecified osteoarthritis, unspecified site; I25.10 Atherosclerotic heart disease of native coronary artery without angina pectoris; E78.5 Hyperlipidemia, unspecified; N40.0 Benign prostatic hyperplasia without lower urinary tract symptoms; I65.29 Occlusion and stenosis of unspecified carotid artery; E11.9 Type 2 diabetes mellitus without complications; K21.00 Gastro-esophageal reflux disease with esophagitis, without bleeding; K29.00 Acute gastritis without bleeding; I50.9 Heart failure, unspecified; K59.00 Constipation, unspecified; I11.0 Hypertensive heart disease with heart failure; Z68.28 Body mass index [BMI] 28.0-28.9, adult; Y99.0 Civilian activity done for income or pay; Z95.5 Presence of coronary angioplasty implant and graft; Z82.3 Family history of stroke; Z83.3 Family history of diabetes mellitus; Z82.0 Family history of epilepsy and other diseases of the nervous system; Z82.5 Family history of asthma and other chronic lower respiratory diseases; Z82.49 Family history of ischemic heart disease and other diseases of the circulatory system
CPT/HCPCS: 36415; 36600; 43246; 70450; 71045; 71250; 74018; 74230; 80048; 80053; 80076; 81001; 82803; 82948; 83036; 83605; 83615; 83735; 83880; 84100; 84145; 84484; 85025; 85027; 85378; 85610; 85730; 86140; 86677; 87040; 87088; 87635; 87804; 92526; 92610; 92611; 93005; 93970; 94760; 97039; 99291; A4606; C9113; C9803; G0378; J0690; J0696; J1100; J1120; J1644; J1650; J1815; J1940; J2001; J2543; J2704; J2920; J2930; J3490; J7030; J7050

== ENCOUNTER → 2022-04-24 | Outpatient (CLI) | payer MEDICARE ==
[~2022-04-24] MED LIST changes: +AEC81 PO; +ALBUHFA IH; +APIX2.5T PO; +ASCO500T20 PO; -ASPI-556 PO; -ATOR10 PO; +ATOR10TA69 PO; +BARI2TAB PO; -CHOL500050 PO; +DEXA6TAB PO; +FERR325T22 PO; -FERS325 PO; +INHA1EAC51 MC; +ISOS30TA92 PO; +LEVO25CA4 PO; -LEVO25TA54 PO; +METO-391 PO; +PANT40TA PO; +TAMS-1 PO; -TAMS0.4C32 PO; +ZINC220C6 PO
== END | disposition home or self-care (01) ==
LOC: SHCH 12:45
PROVIDERS: ATTEND Internal Medicine Cardiovascular Disease
DX: I51.7 Cardiomegaly (principal); R53.82 Chronic fatigue, unspecified; U09.9 Post COVID-19 condition, unspecified
CPT/HCPCS: 93306

== ENCOUNTER 2025-01-17 16:57 | Emergency (ER) | payer MEDICARE ==
[~2025-01-17] VITALS: Ht 172.7 cm; Wt 86.2 kg
--- NOTE | 2025-01-17 17:26 | EKG ---
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
[2025-01-17 17:27] LABS: BASOPHILS # (AUTO) 0.05 K/uL (0.00-0.20); BASOPHILS % (AUTO) 0.6 % (0.0-5.0); EOSINOPHILS # (AUTO) 0.16 K/uL (0.00-0.70); EOSINOPHILS % (AUTO) 1.8 % (0.0-8.0); HEMATOCRIT 35.3 % (42-54); IMMATURE GRANULOCYTE ABSOLUTE 0.01 K/uL (0-1); LYMPHOCYTES # (AUTO) 2.8 K/uL (1.0-4.8); LYMPHOCYTES % (AUTO) 32.6 % (21.0-51.0); MEAN CORPUSCULAR HEMOGLOBIN 29.9 pg (27.0-33.0); MEAN CORPUSCULAR HGB CONC 32.3 g/dL (32.0-36.0); MEAN CORPUSCULAR VOLUME 92.7 fL (79-99); MONOCYTES # (AUTO) 0.5 K/uL (0.1-1.0); NEUTROPHILS # (AUTO) 5.1 K/uL (1.8-7.7); NEUTROPHILS % (AUTO) 58.9 % (40.0-77.0); PLATELET COUNT (AUTO) 199 K/uL (130-400); RED BLOOD CELL COUNT(AUTO) 3.81 MIL/uL (4.50-6.20); RED CELL DISTRIBUTION WIDTH 13.5 % (11.0-15.5); WHITE BLOOD COUNT (AUTO) 8.7 K/uL (4.8-10.8)
[2025-01-17 17:37] LABS: CREATININE 0.9 mg/dL (0.5-1.3); POTASSIUM 4.6 mmol/L (3.5-5.1)
[2025-01-17] MEDS: LACTATED RINGERS 1000ML 1,000 ML IV ONE (17:57)
--- NOTE | 2025-01-17 18:03 | HMCIMG ---
CT ABDOMEN WITHOUT CONTRAST. CT PELVIS WITHOUT CONTRAST. INDICATION: Constipation or obstruction TECHNIQUE: Routine transaxial imaging using 5 mm slice thickness through the abdomen and pelvis without the administration of IV contrast. Thin slice reconstructions are also provided. Coronal and sagittal reformatted images acquired for interpretation. CT was performed with one or more of the following dose reduction techniques: Automated exposure control, adjustment of the mA and/or kV according to patient size, or use of iterative reconstruction technique. COMPARISON: None FINDINGS: ON NONCONTRAST IMAGING: ABDOMEN: Mild right greater than left gynecomastia for which the differential is broad. Heart size is normal. Visible lung bases are clear. No abnormal renal calcifications, hydronephrosis, perinephric inflammation, or proximal hydroureter detected. 2.4 cm simple left renal cyst. The liver is normal in size and smooth in contour without biliary duct dilation. The spleen is normal in size and attenuation. The gallbladder appears normal. The pancreas appears normal without pancreatic duct dilation. The adrenal glands appear normal. No significant abdominal, retrocrural or retroperitoneal adenopathy noted. No evidence for intra-abdominal free air or organized fluid collection. No aortic aneurysmal dilation identified. PELVIS: No abnormal calcifications within the urinary bladder or distal ureters. No evidence for free air or organized pelvic fluid collection. No significant pelvic adenopathy detected. Visualized small and large bowel loops appear unremarkable. Terminal ileum appears unremarkable. The appendix appears normal. Chronic left obturator ring fracture deformity. Mild bilateral hip degenerative joint disease. Mild thoracolumbar spondylosis.. IMPRESSION: No evidence for any acute intra-abdominal or pelvic process, including no evidence for constipation or bowel obstruction. Additional minor findings and pertinent negatives as reported.
--- NOTE | 2025-01-17 18:19 | HMCIMG ---
PORTABLE CHEST RADIOGRAPH INDICATION: abd pain COMPARISON: 11/22/2021 FINDINGS: Heart size is normal. The pulmonary vascularity and lorna appear normal. No abnormal pulmonary parenchymal opacity or consolidation identified. No significant pleural effusion noted. No pneumothorax detected. IMPRESSION: No radiographic evidence for any acute cardiopulmonary process.
[2025-01-17] MEDS ORDERED: POLY119P2 PO (18:29)
--- NOTE | 2025-01-17 18:30 | ERN ---
General Chief Complaint: Constipation Stated Complaint: UNABLE TO USE RESTROOM Time Seen by MD: 16:58 History of Present Illness Initial Comments 74-year-old male who presents for constipation sensation. Patient reports has been on and off for the last few months. Over the last few days he feels like he was to stool but is unable to. He was able to have a hard BM yesterday. No vomiting. No fevers. No abdominal tenderness. P.o. tolerant. He has tried yayb-pwt-aipuzym medications with minimal relief. he has a surgical history of a PEG tube which was placed her on iron COVID he was acidic disease. It was since been removed. He was dealt with constipat since. No history of bowel obstruction Allergies: Coded Allergies: No Known Drug Allergies (Verified Allergy, 02/08/13) Home Meds Active Scripts Inhaler, Assist Devices (Breatherite Spacer-Adult Mask) 1 Each Spacer, EACH MC QIDP PRN for SHORTNESS OF BREATH/WHEEZING, #1 Use with albuterol HFA inhaler Prov:NEELIMA ROPER Jr., MD 11/20/21 Dexamethasone (Dexamethasone) 6 Mg Tablet, 6 MG PO DAILY for 7 Days, #7 TAB Prov:NEELIMA ROPER Jr., MD 11/20/21 Zinc Sulfate (Zinc Sulfate 220 Cap) 220 Mg Capsule, 220 MG PO DAILY for 30 Days, #30 CAP Prov:NEELIMA ROPER Jr., MD 11/20/21 Pantoprazole Sodium (Protonix) 40 Mg Tablet.dr, 40 MG PO DAILY for 30 Days, #30 TAB Prov:NEELIMA ROPER Jr., MD 11/20/21 Baricitinib (Olumiant) 2 Mg Tablet, 4 MG PO DAILY for 7 Days, #14 TAB Take 2 tablets orally daily in the morning for 7 days. Prov:NEELIMA ROPER Jr., MD 11/20/21 Ascorbic Acid (Vitamin C) 500 Mg Tablet, 500 MG PO DAILY for 30 Days, #30 TAB Prov:NEELIMA ROPER Jr., MD 11/20/21 Apixaban (Eliquis) 2.5 Mg Tablet, 2.5 MG PO BID for Prevention blood clots for 30 Days, #60 TAB Prov:NEELIMA ROPER Jr., MD 11/20/21 Albuterol Sulfate (Ventolin Hfa/Proventil Hfa/Proair Hfa) 90 Mcg/Puff Puff, 0 INH IH Q6H for 30 Days, #1 INH 0 Refills Used together with spacer Prov:NEELIMA ROPER Jr., MD 11/20/21 Reported Medications Ferrous Sulfate (Ferrous Sulfate) 325 Mg Tablet, 325 MG PO DAILY, TAB 11/13/21 Levothyroxine Sodium (Levothyroxine) 25 Mcg Capsule, 25 MCG PO ACBKFST, CAP 11/13/21 Tamsulosin HCl (Flomax) 0.4 Mg Cap.er.24h, 0.4 MG PO DAILY, CAPSULE.DR 11/13/21 Metformin HCl (Metformin HCl) 1,000 Mg Tablet, 1000 MG PO BID, TAB 11/13/21 Glimepiride (Glimepiride) 4 Mg Tablet, 4 MG PO DAILY, TAB 11/13/21 Isosorbide Mononitrate (Isosorbide Mononitrate ER) 30 Mg Tab.er.24h, 30 MG PO DAILY, TAB 11/13/21 Atorvastatin Calcium (Atorvastatin Calcium) 10 Mg Tablet, 10 MG PO HS, TAB 11/13/21 Metoprolol Succinate (Metoprolol Succinate) 50 Mg Tab.er.24h, 50 MG PO DAILY, TAB 11/13/21 Aspirin (ASPIRIN 81 MG ECTAB) 81 Mg Ectab, 81 MG PO DAILY, TAB.EC 11/13/21 Past Medical History Past Medical History: Arthritis, Diabetes-Type II, Heart Disease, Hypertension, Prostatitis Medical History Other: BACK SURGERY Past Surgical History: Other Surgical History Other: HEART STENTS, CATARACT, PEG TUBE Social History Social History: Negative, Lives with family ROS Dictation CONSTITUTIONAL: No chills, no fever, no weakness, no diaphoresis, no malaise. HEAD/FACE: No signs of trauma. EENT: No eye pain, no blurred vision, no tearing, no double vision, no ear pain, no ear discharge, no nose pain, no nasal congestion, no throat pain, no throat swelling, no mouth pain. RESPIRATORY: No cough, no orthopnea, no SOB, no stridor, no wheezing. CARDIOVASCULAR: No chest pain, no edema, no palpitations, no syncope. GASTROINTESTINAL/ABDOMINAL: Constipation GENITOURINARY: No abnormal discharge, no dysuria, no frequent urination, no hematuria. No complaints of pain in the genitals. MUSCULOSKELETAL: No back pain, no gout, no joint pain, no joint swelling, no muscle pain, no muscle stiffness, no neck pain. INTEGUMENTARY: No change in color, no change in hair/nails, no dryness, no lesion, no lumps, no rash. NEUROLOGICAL/PSYCH: No anxiety, not depressed, no emotional problem, no headache, no numbness, no pre-existing deficit, no history of seizures, no tremors, no weakness. HEMATOLOGIC/LYMPHATIC: Not anemic, no history of blood clots, no apparent bleeding, no bruising, glands not swollen. All Systems Negative, Except as Noted. Physical Exam Physical Exam Dictation VITAL SIGNS: Reviewed. GENERAL APPEARANCE: Alert, oriented x3, no acute distress HEAD AND FACE: Non-traumatic. EYES: PERRL, pink conjunctivas, eyelid no trauma, anterior chamber clear. EARS: Pinnas intact and no signs of trauma or erythema. Ear canals clear and no discharge. TMs no erythema. NOSE: No discharge, no bleeding. OROPHARYNX: Mouth normal, teeth no caries, tongue pink. Pharynx clear, no erythema. Tonsils no exudates, no abscesses noted. Mucous membrane moist. NECK: Supple, non-tender, no thyromegaly, no masses, no JVD, no bruits. BREAST: Deferred. CHEST: No tenderness, no crepitus, no paradoxical movement, no retractions. LUNGS: Clear, well-ventilated, symmetric, no rales, no wheezing, no rhonchi, no stridor, good breath sounds bilaterally. HEART: Regular rate, regular rhythm, no murmur, no gallops. VASCULAR: No peripheral edema. ABDOMEN: Soft, positive bowel sounds, nondistended, no guarding, nontender, no rebound, no masses no hepatomegaly, no splenomegaly, no Bergeron's sign, no hernias. RECTAL: Deferred. GENITAL: Deferred. NEUROLOGICAL: Normal speech, gross motor function intact, gross sensory function intact. MUSCULOSKELETAL: Neck nontender, full range of motion, back nontender, full range of motion. EXTREMITIES: Nontender, full range of motion. SKIN: Color pink, dry, no turgor, no rash, no lacerations, no abrasions, no contusions. LYMPHATICS: Deferred. Results Laboratory and Microbiology Lab and Micro Result Laboratory Tests Test 01/17/25 17:21 White Blood Count 8.7 K/uL (4.8-10.8) Red Blood Count 3.81 MIL/uL (4.50-6.20) L Hemoglobin 11.4 g/dL (14.0-18.0) L Hematocrit 35.3 % (42-54) L Mean Corpuscular Volume 92.7 fL (79-99) Mean Corpuscular Hemoglobin 29.9 pg (27.0-33.0) Mean Corpuscular Hemoglobin Concent 32.3 g/dL (32.0-36.0) Red Cell Distribution Width 13.5 % (11.0-15.5) Platelet Count 199 K/uL (130-400) Mean Platelet Volume 9.9 fL (7.5-10.5) Immature Granulocyte % (Auto) 0.1 % (0-1) Neutrophils (%) (Auto) 58.9 % (40.0-77.0) Lymphocytes (%) (Auto) 32.6 % (21.0-51.0) Monocytes (%) (Auto) 6.0 % (3.0-13.0) Eosinophils (%) (Auto) 1.8 % (0.0-8.0) Basophils (%) (Auto) 0.6 % (0.0-5.0) Neutrophils # (Auto) 5.1 K/uL (1.8-7.7) Lymphocytes # (Auto) 2.8 K/uL (1.0-4.8) Monocytes # (Auto) 0.5 K/uL (0.1-1.0) Eosinophils # (Auto) 0.16 K/uL (0.00-0.70) Basophils # (Auto) 0.05 K/uL (0.00-0.20) Absolute Immature Granulocyte (auto 0.01 K/uL (0-1) Nucleated Red Blood Cells 0.0 % (0.0-0.19) Sodium Level 135 mmol/L (136-145) L Potassium Level 4.6 mmol/L (3.5-5.1) Chloride Level 100 mmol/L (101-111) L Carbon Dioxide Level 29 mmol/L (21-32) Blood Urea Nitrogen 11 mg/dL (7-18) Creatinine 0.9 mg/dL (0.5-1.3) Glomerular Filtration Rate Calc 89 mL/min (>90) Random Glucose 138 mg/dL (70-105) H Total Calcium 9.1 mg/dL (8.5-10.1) Total Creatine Kinase 58 U/L (21-232) # MDM CC: constipation Historian: Patient Comorbidities: Diabetes, arthritis, heart disease, hypertension, prostatitis, back surgery, previous PEG tube Limitations by social determinants of health: None Differential diagnosis: Bowel obstruction, diverticulitis, constipation, other. Vital signs: Mild hypertension, otherwise unremarkable. Remained stable in the ER Labs ( independently ordered and interpreted by me ): No leukocytosis or shift. Mild anemia hemoglobin 11.4. Chemistry panel is unremarkable . CK normal. CXR (independently ordered and interpreted by me ): Borderline cardiomegaly no pleural effusions no focal infiltrates no major abnormalities EKG (independently interpreted by me): Sinus tachycardia, left axis deviation, rate 100, good R-wave progression, intervals are stable. No STEMI. CT abdomen and pelvis (independently interpreted by me ): No signs of bowel obstruction major constipation. No surgical pathology. No signs of surgical pathology, no bowel obstruction, no signs of SIRS sepsis, no free air in the abdomen. Patient was nontoxic. Soft nontender abdomen. Symptoms most consistent with constipation. We will DC with PEG and recommend PCP follow up. ED Course Orders Procedure Category Date Status Time Cbc With Differential LAB 01/17/25 Complete 17:07 12 Lead Ekg Tracing- EKG 01/17/25 Complete Technical 17:07 Lactated Ringers PHA 01/17/25 Complete 1000ml (Lactated 17:30 Creatine Kinase, Total LAB 01/17/25 Complete 17:07 Ct Abdomen/Pelvis W/O CT 01/17/25 Resulted Contrast 17:07 Chest 1vw RAD 01/17/25 Resulted 17:07 Basic Metabolic Panel LAB 01/17/25 Complete 17:07 12 Lead Ekg Tracing- EKG 01/17/25 Logged Technical 17:07 Current Medications Medications (Trade) Dose Ordered Sig/Cyndi Route PRN Reason Start Time Stop Time Status Last Admin Dose Admin Lactated Ringer's 1,000 ml @ 0 mls/hr ONCE ONCE IV 01/17/25 17:30 01/17/25 17:31 DC 01/17/25 17:57 Vital Signs Date Time Temp Pulse Resp B/P (MAP) Pulse Ox O2 Delivery O2 Flow Rate FiO2 01/17/25 17:01 99.0 95 16 155/73 97 Room Air 0 DX & DISP Disposition: Discharge Departure Impression: Primary Impression: Constipation Condition: Stable Scripts Polyethylene Glycol 3350 (Miralax) 17 Gram/Dose Powder 17 GM PO BID for constipation, #255 GM 0 Refills dissolve in water Prov: PAU MCDANIEL DO 01/17/25 Additional Instructions: Your symptoms are most consistent with constipation. Your vital signs have been stable. Your blood work (CBC, BMP, CK) is unremarkable. The CT scan of your abdomen and pelvis is unremarkable. There are no signs of obstruction. I have prescribed MiraLax. Take this twice per day as needed for bowel movements. Be sure to drink plenty of liquids. Please follow up with your outpatient doctor. Referrals: SONYA PRICE (PCP) PAU MCDANIEL DO Jan 17, 2025 18:30
[2025-01-17 19:01] VITALS: BP 141/76; PULSE 80; RESP 18; TEMP 98.7; O2SAT 97
== END 2025-01-17 19:09 | disposition home or self-care (01) ==
LOC: EDH 16:57
DX: K59.00 Constipation, unspecified (principal); E11.9 Type 2 diabetes mellitus without complications; I10 Essential (primary) hypertension; M19.90 Unspecified osteoarthritis, unspecified site; Z79.52 Long term (current) use of systemic steroids; Z79.82 Long term (current) use of aspirin; Z79.84 Long term (current) use of oral hypoglycemic drugs; Z79.899 Other long term (current) drug therapy; Z93.1 Gastrostomy status; Z95.5 Presence of coronary angioplasty implant and graft
CPT/HCPCS: 99285; 74176; 96360; 71045; 82550; 80048; 85025; 36415; 93005; J7120

== ENCOUNTER 2025-10-06 16:54 | Inpatient (IN) | payer MEDICARE ==
[~2025-10-06] VITALS: Ht 167.6 cm; Wt 98.0 kg
[~2025-10-06 16:54] MED LIST changes: -APIX2.5T PO; -ASCO500T20 PO; -BARI2TAB PO; -DEXA6TAB PO; -INHA1EAC51 MC; -ISOS30TA92 PO; -LEVO25CA4 PO; +LEVO25CA5 PO; +LISI5TAB21 PO; +METF-444 PO; -METF-446 PO; -METO-391 PO; -TAMS-1 PO; +TAMS-55 PO; -ZINC220C6 PO
[2025-10-06 17:14] LABS: IMMATURE GRANULOCYTE ABSOLUTE 0.03 K/uL (0-1); NUCLEATED RED BLOOD CELLS 0.0 % (0.0-0.19); PLATELET COUNT (AUTO) 215 K/uL (130-400); RED BLOOD CELL COUNT(AUTO) 3.11 MIL/uL (4.50-6.20); RED CELL DISTRIBUTION WIDTH 14.4 % (11.0-15.5); WHITE BLOOD COUNT (AUTO) 8.2 K/uL (4.8-10.8)
[2025-10-06] MEDS: FAMOTIDINE 20MG VIAL IV ONE (17:18)
[2025-10-06 17:26] LABS: CREATININE 1.0 mg/dL (0.5-1.3); GLOMERULAR FILTR. RATE CALC 78.0 mL/min (>90); GLUCOSE,RANDOM 82.0 mg/dL (70-105); SODIUM SERUM 139.0 mmol/L (136-145); UREA NITROGEN, BLOOD 9.0 mg/dL (7-18)
[2025-10-06] MEDS: ASPIRIN 81MG CHEW TAB PO ONE (17:29)
[2025-10-06 17:30] LABS: ASPARTATE AMINOTRANSFERASE 15.0 U/L (10-37); TOTAL PROTEIN, SERUM 6.8 g/dL (6.0-8.3)
[2025-10-06] MEDS ORDERED: ASPIRIN 81MG CHEW TAB PO ONE (17:30)
--- NOTE | 2025-10-06 18:01 | ERN ---
ED Note History of Present Illness Stated Complaint: CHEST PAIN Chief Complaint: Chest Pain Time Seen by MD: 17:00 Time Seen by Midlevel: 17:05 Dictation: 75-YEAR-OLD MALE COMING IN WITH COMPLAINTS OF EPIGASTRIC PAIN RADIATING UP TO THE CHEST FOR ONE WEEK. PATIENT STATES THE CHEST PAIN IS WORSE WHEN HE EATS. DENIES ANY FEVER, NAUSEA, VOMITING OR DIARRHEA. PATIENT IS CURRENTLY GETTING IV ON THE PICC LINE FOR A LEG CELLULITIS Allergies: Coded Allergies: No Known Drug Allergies (Verified Allergy, 02/08/13) Home Meds Active Scripts Lisinopril (Lisinopril) 5 Mg Tablet, 1 TAB PO DAILY for 30 Days, #30 TAB 1 Refill Prov:SAEED IRELAND MD 09/29/25 Pantoprazole Sodium (Protonix) 40 Mg Tablet., 40 MG PO DAILY for 30 Days, #30 TAB Prov:NEELIMA ROPER Jr., MD 11/20/21 Albuterol Sulfate (Ventolin Hfa/Proventil Hfa/Proair Hfa) 90 Mcg/Puff Puff, 0 INH IH Q6H for 30 Days, #1 INH 0 Refills Used together with spacer Prov:NEELIMA ROPER Jr., MD 11/20/21 Reported Medications Metformin HCl (Metformin HCl) 500 Mg Tablet, 1 TAB PO DAILY for 30 Days, #60 TAB 0 Refills 09/27/25 Ferrous Sulfate (Ferrous Sulfate) 325 Mg Tablet, 325 MG PO DAILY, TAB 11/13/21 Levothyroxine Sodium (Levothyroxine) 25 Mcg Capsule, 25 MCG PO ACBKFST, CAP 11/13/21 Tamsulosin HCl (Flomax) 0.4 Mg Cap.er.24h, 0.4 MG PO DAILY, CAPSULE. 11/13/21 Glimepiride (Glimepiride) 4 Mg Tablet, 4 MG PO DAILY, TAB 11/13/21 Atorvastatin Calcium (Atorvastatin Calcium) 10 Mg Tablet, 10 MG PO HS, TAB 11/13/21 Aspirin (ASPIRIN 81 MG ECTAB) 81 Mg Ectab, 81 MG PO DAILY, TAB.EC 11/13/21 Past Medical History Past Medical History: Diabetes-Type II, Hypertension, Hypothyroid Additional Past Medical Hx: BACK SURGERY Surgical History: None Surgical History Other: HEART STENTS, CATARACT, PEG TUBE Social History: Negative, Lives with family Review of System Dictation Constitutional: Negative for fever,chills, and weight loss Eyes: Negative for injury, pain,redness, and discharge ENT: Negative for injury,pain or swelling Cardiovascular: Complaining of chest pain Respiratory: Negative for shortness of breath, cough, and wheezing, Abdomen/GI: Complaining of epigastric pain Back: Negative for injury and pain : Negative for injury, bleeding and discharge MS/Extremity: Negative for injury and deformity Skin: Negative for rash, and discoloration Neuro: Negative for headache, weakness, numbness, tingling, and seizure Psych: Negative for suicide ideation, homicidal ideation, and hallucinations Review of Systems: was completed Initial Vital Sign VS Vital Signs Date Time Temp Pulse Resp B/P (MAP) Pulse Ox O2 Delivery O2 Flow Rate FiO2 10/06/25 16:55 98.1 97 16 166/74 99 Room Air 10/06/25 17:21 0 21 Physical Exam Dictation General: awake, alert, NAD Head/Face: Normocephalic, atraumatic Eyes: PERRL, EOMI, vision at baseline ENT: oral cavity clear, TMs clear, no signs of infection Neck: Trachea midline, supple, no nuchal rigidity Cardiovascular: RRR, normal S1/S2, No MRGs, no JVD Respiratory: CTAB, no respiratory distress, No rales or wheezes Abdomen: Soft, non-tender, non-distended, normal bowel sounds, no guarding or rebound. Skin: Warm, dry, normal turgor, no rash MS/Extremity: Pulses equal, no cyanosis, neurovascular intact, FROM Neuro: COAx4, GCS 15, strength 5/5, CN 2-12 intact, normal cerebellar exam, normal gait, Psych: Normal behavior, mood, and affect normal Results (Laboratory/Radiology) Laboratory/Radiology Laboratory Tests Test 10/06/25 17:07 10/06/25 19:00 White Blood Count 8.2 K/uL (4.8-10.8) Red Blood Count 3.11 MIL/uL (4.50-6.20) L Hemoglobin 9.4 g/dL (14.0-18.0) L Hematocrit 29.4 % (42-54) L Mean Corpuscular Volume 94.5 fL (79-99) Mean Corpuscular Hemoglobin 30.2 pg (27.0-33.0) Mean Corpuscular Hemoglobin Concent 32.0 g/dL (32.0-36.0) Red Cell Distribution Width 14.4 % (11.0-15.5) Platelet Count 215 K/uL (130-400) Mean Platelet Volume 9.4 fL (7.5-10.5) Immature Granulocyte % (Auto) 0.4 % (0-1) Neutrophils (%) (Auto) 67.1 % (40.0-77.0) Lymphocytes (%) (Auto) 21.2 % (21.0-51.0) Monocytes (%) (Auto) 9.2 % (3.0-13.0) Eosinophils (%) (Auto) 1.6 % (0.0-8.0) Basophils (%) (Auto) 0.5 % (0.0-5.0) Neutrophils # (Auto) 5.5 K/uL (1.8-7.7) Lymphocytes # (Auto) 1.7 K/uL (1.0-4.8) Monocytes # (Auto) 0.8 K/uL (0.1-1.0) Eosinophils # (Auto) 0.13 K/uL (0.00-0.70) Basophils # (Auto) 0.04 K/uL (0.00-0.20) Absolute Immature Granulocyte (auto 0.03 K/uL (0-1) Nucleated Red Blood Cells 0.0 % (0.0-0.19) Sodium Level 139 mmol/L (136-145) Potassium Level 3.9 mmol/L (3.5-5.1) Chloride Level 104 mmol/L (101-111) Carbon Dioxide Level 29 mmol/L (21-32) Blood Urea Nitrogen 9 mg/dL (7-18) Creatinine 1.0 mg/dL (0.5-1.3) Glomerular Filtration Rate Calc 78 mL/min (>90) Random Glucose 82 mg/dL (70-105) Total Calcium 8.6 mg/dL (8.5-10.1) Total Bilirubin 0.3 mg/dL (0.2-1.0) Direct Bilirubin 0.1 mg/dL (0.0-0.3) Aspartate Amino Transf (AST/SGOT) 15 U/L (10-37) Alanine Aminotransferase (ALT/SGPT) 12 U/L (12-78) Alkaline Phosphatase 93 U/L (50-136) Troponin I High Sensitivity 13 ng/L (4-75) 16 ng/L (4-75) B-Type Natriuretic Peptide 100 pg/mL (0-100) Total Protein 6.8 g/dL (6.0-8.3) Albumin 3.3 g/dL (3.5-5.0) L Lipase 18 U/L (16-77) Labs Reviewed?: Yes EKG Comment: EKGS DONE AT 5:01 P.M.. SINUS TACHYCARDIA AT 1:07 A.M.. NO STEMI INTERPRETED BY ER MD ED Course ED Course Orders Procedure Category Date Status Time Cbc With Differential LAB 10/06/25 Complete 17:00 Basic Metabolic Panel LAB 10/06/25 Complete 17:00 Troponin I High LAB 10/06/25 Complete Sensitivity 17:00 Chest 1vw RAD 10/06/25 Resulted 17:00 12 Lead Ekg Tracing- EKG 10/06/25 Logged Technical 17:00 B-Type Natriuretic LAB 10/06/25 Complete Peptide 17:00 Lipase LAB 10/06/25 Complete 17:05 Hepatic Function Panel LAB 10/06/25 Complete 17:05 Aspirin 81mg Chew Tab PHA 10/06/25 Complete (Aspirin 81mg Chew 17:30 Famotidine 20mg Vial PHA 10/06/25 Complete (Pepcid 20mg Vial) 17:30 Aspirin 81mg Chew Tab PHA 10/06/25 Complete (Aspirin 81mg Chew 17:30 Troponin I High LAB 10/06/25 Complete Sensitivity 18:47 Nitroglycerin 0.4mg PHA 10/06/25 In Process Sl Tab (Nitrostat) 19:00 Admit Orders ADM 10/06/25 Transmitted 20:20 Current Medications Medications (Trade) Dose Ordered Sig/Cyndi Route PRN Reason Start Time Stop Time Status Last Admin Dose Admin Aspirin (Aspirin 81mg Chew Tab) 243 mg ONCE ONCE PO 10/06/25 17:30 10/06/25 17:31 DC 10/06/25 17:29 Aspirin (Aspirin 81mg Chew Tab) 324 mg ONCE ONCE PO 10/06/25 17:30 10/06/25 17:21 DC Famotidine (Pepcid 20mg Vial) 20 mg ONCE ONCE IV 10/06/25 17:30 10/06/25 17:31 DC 10/06/25 17:18 Nitroglycerin (Nitrostat) 0.4 mg AD PRN SL CHEST PAIN 10/06/25 19:00 11/05/25 18:59 Vital Signs Date Time Temp Pulse Resp B/P (MAP) Pulse Ox O2 Delivery O2 Flow Rate FiO2 10/06/25 19:34 98.1 85 18 165/75 99 Room Air* 0 21 10/06/25 17:21 97.7 95 31 153/62 98 Room Air* 0 21 10/06/25 16:55 98.1 97 16 166/74 99 Room Air HEART Score Response (Comments) Value History: Moderate suspicion (+1) 1 EKG: Normal 0 Age: > 65yrs (+2) 2 Risk Factors: 3+ risk factors (+2) 2 Initial Troponin: Normal limit (0) 0 Total 5 Medical Decision Making MDM MDM: 75-YEAR-OLD MALE COMING IN WITH COMPLAINTS OF EPIGASTRIC PAIN RADIATING UP TO THE CHEST FOR ONE WEEK. PATIENT STATES THE CHEST PAIN IS WORSE WHEN HE EATS. DENIES ANY FEVER, NAUSEA, VOMITING OR DIARRHEA. PATIENT IS CURRENTLY GETTING IV ON THE PICC LINE FOR A LEG CELLULITIS. CBC shows no leukocytosis, normocytic anemia, no thrombocytopenia. Chemistry shows no electrolyte abnormality. No transaminitis. Normal lipase, troponin x2 negative. On reassessment patient states he is still having chest pain despite giving Pepcid, aspirin,. Heart score is five, we will admit to rule out ACS. Differential diagnosis: ACS, chest pain, GERD, gastritis Rationale: Tests considered and ordered secondary to shared decision making include: labs, ECG and radiology Previous outside records reviewed: Old ER visits. Risk of complication and/or morbidity or mortality of patient management: None Medications-Per medication reconciliation Need for hospitalization: Patient does meet criteria for hospitalization. Need for emergency major/minor surgery: No There are no social concerns with this patient. Prescription drug management Prescriptions will include symptomatic care Patient's prior external medical records from other ER visits were reviewed by me as indicated. Prior testing and results from previous visits were reviewed. Prior tests were taken into account with medical decision making and resource utilization, independent historian/historians were used to obtain complete medical history. I independently interpreted the test that were performed, results were reviewed by me and considered findings on radiology if ordered. Medical management and examination interpretation discussions were had by me with other qualified healthcare professionals as indicated for the patient's care. DX & DISP Disposition: Inpatient Decision to Admit Date: Oct 06, 2025 Decision to Admit Time: 20:30 Departure Impression: Primary Impression: Chest pain Condition: Stable Referrals: SONYA PRICE (PCP) WOLFGANG SOARES CNP Oct 06, 2025 18:01
--- NOTE | 2025-10-06 18:26 | HMCIMG ---
EXAM: CR Chest, 1 View. CLINICAL HISTORY: cp COMPARISON: None provided. FINDINGS: PICC overlies the expected location of the right axillary vessels. LUNGS: There is no mass, infiltrate, or acute pulmonary abnormality. PLEURAL SPACES: No evidence of pleural effusion or pneumothorax. MEDIASTINUM: The cardiomediastinal silhouette is within normal limits. BONES: No aggressive appearing osseous lesion seen. IMPRESSION: No acute cardiopulmonary pathology is evident. /[place]
--- NOTE | 2025-10-06 20:21 | HP ---
History of Present Illness Reason for Visit: cp History of Present Illness Mr. Krishna is a 75-year-old male that was seen and examined today on 10/06/2025. Patient presented to the emergency department with a chief complaint of chest pain. Onset was one week ago. Location is lower sternum. Duration is on and off. Character is described as burning and pressure. There was no alleviating factors. Symptoms are aggravated with eating. Patient reports associated decreased appetite after having his PEG tube removed. Today in the emergency department CBC unremarkable, chemistry unremarkable, troponin unremarkable, chest x-ray unremarkable. Emergency room physician recommended that patient be admitted with a diagnosis of chest pain. Past Medical History Patient History: Anxiety disorder DAUGHTER FH: depression DAUGHTER Family history: Diabetes mellitus FATHER, Onset:60 years & older No Family History of: Cancer Chronic obstructive lung disease Family history: Alzheimer's disease Family history: Asthma Family history: Cardiovascular disease Family history: Hypertension Parkinson's disease Stroke ADDITIONAL PAST MEDICAL HISTORY: [Diabetes mellitius type2, hypertension, hypothyroidism] SOCIAL HISTORY: [Negative for smoking, alcohol use, drug use. Patient lives with his , Divya Krishna. Patient states he is typically independent of his ADLs. Patient denies difficulty pain is bills.] SURGICAL HISTORY: [Back surgery, heart stent, cataract surgery, peg tube insertion and subsequent removal] Review of Systems General: No Fever, No Chills, No Night Sweats, No Fatigue, No Malaise; Appetite (Decreased); No Other HEENT: No Head Aches, No Visual Changes, No Eye Pain, No Ear Pain, No Dysphasia, No Sinus Congestion, No Post Nasal Drip, No Sore Throat, No Other Pulmonary: No Dyspnea, No Cough, No Pleuritic Chest Pain, No Other Cardiovascular: Chest Pain; No: Palpitations, Orthopnea, Paroxysmal Noc. Dyspnea, Edema, Lt Headedness, Other Gastrointestinal: No: Nausea, Vomiting, Abdominal Pain, Diarrhea, Constipation, Melena, Hematochezia, Other Genitourinary: No Dysuria, No Frequency, No Incontinence, No Hematuria, No Retention, No Other Musculoskeletal: No: other, neck pain, shoulder pain, arm pain, back pain, hand pain, leg pain, foot pain Skin: No Urticaria, No Rash, No Other Neurological: No: Weakness, Numbness, Incoordination, Change in speech, Confusion, Seizures, Other Allergies: Coded Allergies: No Known Drug Allergies (Verified Allergy, 02/08/13) Scheduled Albuterol Sulfate (Ventolin Hfa/Proventil Hfa/Proair Hfa), 0 INH IH Q6H Aspirin (Aspirin 81 Mg Ectab), 81 MG PO DAILY, (Reported) Atorvastatin Calcium (Atorvastatin Calcium), 10 MG PO HS, (Reported) Cholecalciferol (Vitamin D3), 1 CAP PO QWEEK, (Reported) Ferrous Sulfate (Ferrous Sulfate), 325 MG PO DAILY, (Reported) Glimepiride (Glimepiride), 4 MG PO DAILY, (Reported) Insulin Glargine,Hum.rec.anlog (Lantus Solostar), 20 UNIT SQ BID, (Reported) Levothyroxine Sodium (Levothyroxine), 25 MCG PO ACBKFST, (Reported) Lisinopril (Lisinopril), 1 TAB PO DAILY Metformin HCl (Metformin HCl), 1 TAB PO DAILY, (Reported) Pantoprazole Sodium (Protonix), 40 MG PO DAILY Tamsulosin HCl (Flomax), 0.4 MG PO HS, (Reported) Exam Vital Signs Vital Signs Date Time Temp Pulse Resp B/P (MAP) Pulse Ox O2 Delivery O2 Flow Rate FiO2 10/06/25 19:34 98.1 85 18 165/75 99 Room Air* 0 21 General Appearance: Alert, Oriented X3, Cooperative, mild distress HEENT: Atraumatic, EOMI Respiratory: Clear to auscultation, Normal air movement, NL respiratory effort Cardiovascular: Regular rate, Regular rhythm, Normal S1, Normal S2 Abdominal: Normal bowel sounds, Soft, No tenderness Extremities: No edema Skin: No significant lesion Neuro: Normal gait, Normal speech, Strength at 5/5 X4 ext, Sensation intact, Cranial nerves 3-12 NL Psych/Mental Status: Mental status NL, Mood NL, Thoughts/Content NL Assessment/Plan ASSESSMENT: [ Chest pain, POA Decreased appetite, POA Diabetes mellitius type2 Hypertension Hypothyroidism] PLAN: [ Admit patient to medical floor as inpatient status. Place patient on telemetry monitoring. Patient received loading dose of aspirin. Continue aspirin 81 mg by mouth once daily. Troponin every 6 hours x3 sets. Consult cardiology if any uncontrollable chest pain or if troponins trend upwards Supplemental oxygen to maintain O2 saturation greater 92%. Nitro paste 0.5 in to anterior chest wall every 8 hours Keep patient NPO IV fluid maintenance therapy 0.9% NS at 100 mL/HR Bedside swallow eval in a.m. Consult Gastroenterology if there was any evidence of aspiration or dysphagia Consult dietitian if patient is able to tolerate feedings, they can help us with the nutritional support recommendations Consider resuming home medications once they have been reconciled. At time of admission home medications has been reconciled. For now: Glucometer checks a.c. and HS One thousand eight hundred ADA diet once patient is no longer NPO Humulin R sliding scale Check hemoglobin A1c in a.m. Hydralazine 10 mg IV every 4 hours for systolic blood pressure greater than 160 mmHg Check TSH in a.m., follow up with the results GI prophylaxis, famotidine DVT prophylaxis, Lovenox ADVANCED CARE PLANNING 1. Which of the following were discussed? Hospice Care - Yes Therapeutic options - yes Advance Directives - Yes - patient states he does not have any advance directives in place at this time, however his can make decisions for him if he becomes unable, Divya Other discussions - patient wishes to remain a full code at this time 2. Discussed with who? Patient 3. Voluntary nature of this service was explained to the patient? Yes 4. Amount of time spent - ___16 minutes____ 5. Reviewed by Physician? (if this service was performed by NPP) Yes This document was generated in part using voice recognition software, occasional wrong word or sound alike substitutions may have occurred due to the inherent limitations of voice recognition software. Read the chart carefully and recognize using context, where the substitutions have occurred. Although every effort was made to edit the content, technical specialist and typing errors may occur ATTESTATION BY PHYSICIAN I have seen and examined the patient. I reviewed the documentation, medical decision making, and treatment plan as noted by the mid-level provider above. I agree with the findings and plan of care. ] MEY V[facility]GAS [facility] Oct 06, 2025 20:21
[2025-10-06] MEDS: NITROGLYCERIN 0.4 MG SL TAB SL PRN (20:47)
[2025-10-06] MEDS: 0.9%NACL 1000ML 1,000 ML IV SCH (23:24)
[2025-10-06] MEDS: NITROGLYCERIN 1GM OINT 1 INCH/1GM TD SCH (23:24)
--- NOTE | 2025-10-06 23:25 | NUR ---
REPORT GIVEN TO VERONICA ASHLEY, TREMAINE ASHLEY
[2025-10-06] MEDS ORDERED: INSU3INS3 SQ (23:36)
[2025-10-06] MEDS ORDERED: VITAD50000 PO (23:36)
[2025-10-07] VITALS (8 sets, daily range): BP systolic 152–169; BP diastolic 65–82; PULSE 69–81; RESP 16–18; TEMP 97.5–98.1; O2SAT 97–99
--- NOTE | 2025-10-07 01:24 | NUR ---
REPORT GIVEN TO ALONDRA ASHLEY
[2025-10-07 03:54] LABS: IMMATURE GRANULOCYTE ABSOLUTE 0.02 K/uL (0-1); NUCLEATED RED BLOOD CELLS 0.0 % (0.0-0.19); PLATELET COUNT (AUTO) 186 K/uL (130-400); RED BLOOD CELL COUNT(AUTO) 2.99 MIL/uL (4.50-6.20); RED CELL DISTRIBUTION WIDTH 14.5 % (11.0-15.5); WHITE BLOOD COUNT (AUTO) 7.6 K/uL (4.8-10.8)
[2025-10-07 04:19] LABS: CREATININE 0.9 mg/dL (0.5-1.3); GLOMERULAR FILTR. RATE CALC 89.0 mL/min (>90); GLUCOSE,RANDOM 60.0 mg/dL (70-105); PHOSPHORUS 2.9 mg/dL (2.5-4.9); UREA NITROGEN, BLOOD 7.0 mg/dL (7-18)
[2025-10-07 04:42] LABS: SODIUM SERUM 141.0 mmol/L (136-145)
[2025-10-07] MEDS ORDERED: GLUCAGON 1MG KIT 1 MG ML IM PRN (07:00)
[2025-10-07] MEDS: DEXTROSE 50%-WATER 50 ML DISP.SYRIN IV PRN (07:24)
[2025-10-07] MEDS: FAMOTIDINE 20MG VIAL IV SCH (08:14)
--- NOTE | 2025-10-07 08:14 | EKG ---
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
[2025-10-07] MEDS: ENOXAPARIN SODIUM 40 MG/0.4 ML SYRINGE SQ SCH (08:15)
[2025-10-07 10:44] LABS: LDL DIRECT 36 mg/dL (0-99)
--- NOTE | 2025-10-07 11:51 | NUR ---
DCP:HOME Pt currently lives at home with his and daughter. Pt has a wheelchair, walker, and cane at home. Pt has a provider that goes to his home 4hrs a day to assist with all ADLs, home management, and meals. PCP is Dr. Boyd Romero and uses [employer] for any RX needs. At [place] pt will want to go home and family can assist with transportation.
[2025-10-07] MEDS ORDERED: VANCOMYCIN 1G/250ML KIT 250 ML IV SCH ×2 (14:00→20:00)
--- NOTE | 2025-10-07 14:00 | NUR ---
REFUSED PT DENIES CHEST PAIN AT THIS TIME AND REFUSED NITROGYLCERIN PATCH
--- NOTE | 2025-10-07 15:25 | HMCIMG ---
DOUBLE CONTRAST UPPER GI SERIES: Finding: The study was performed using provocative maneuvers After swallowing effervescent crystal and thick barium, there is no definite intrinsic or extrinsic lesion seen in the esophagus. There is a small hiatal hernia with grade 1 esophageal reflux. At the edges study patient is noted to have aspiration into the trachea and the left main bronchus. The stomach is normal in size, shape, and configuration. The rugal folds appear to be normal. The duodenal bulb, duodenal sweep, and upper jejunum appear to be normal. Fluoroscopy time: 2.1 minutes IMPRESSION: Patient is noted during the study to have aspiration into the trachea and the left main bronchus Small hiatal hernia with grade 1 esophageal reflux I would recommend a modified barium swallow with speech pathologist and to keep patient nothing by mouth.
--- NOTE | 2025-10-07 16:14 | PN ---
[facility] PROGRESS NOTE Date of Service: Oct 07, 2025 Time of Service: 15:56 SUBJECTIVE: Mr. Krishna is a 75-year-old male with past medical history of Diabetes mellitius type2, hypertension, hypothyroidism who presents to the ED the chief complaint of chest pain which the patient described as pinprick pain rating it a 9/10 on a pain scale and located at the left 5th or 6th rib, below the nipple line. The pain started a week ago the patient described in has an on and off pain. This time he had associated shortness of breath as well and the patient wanted to REVIEW OF SYSTEMS CONSTITUTIONAL: Denies fevers, chills, or night sweats. No unintentional weight loss reported. NEUROLOGICAL: Denies headache, amaurosis fugax, motor weakness, sensory deficit, vertigo/spinning sensation, gait abnormalities, or tremors. ENT: No hearing loss, otalgia, otorrhea, rhinitis, rhinorrhea, hoarseness, or sore throat. CARDIOVASCULAR: Denies any exertional angina, dyspnea on exertion, orthopnea, paroxysmal nocturnal dyspnea, palpitations, life-threatening arrhythmias, claudication. PULMONARY: Denies any shortness of breath, cough, phlegm/sputum, hemoptysis, pleuritic chest pain. SLEEP: Denies morning headaches, daytime somnolence or napping. Denies difficulty falling asleep, staying asleep, waking from sleep. Denies knowledge of snoring. GASTROINTESTINAL: Denies any type of dysphagia to either liquids or solids. Denies nausea, vomiting, pyrosis, early satiety, abdominal pain, diarrhea, constipation, or changes in stool consistency or caliber. Denies coffee-ground emesis, hematemesis, hematochezia, or melanotic stools. GENITOURINARY: Denies frequency, urgency, nocturia, hematuria or incontinence (Storage/Irritative symptoms.) Low urinary stream, straining to void, urinary intermittency or hesitancy, splitting of the voiding stream, terminal dribbling. ENDOCRINOLOGIC: Denies polyuria, polydipsia, polyphagia or heat/cold intolerances. HEMATOLOGIC: Denies thrombophilia/previous clots, or coagulopathy/bleeding disorders. ONCOLOGIC: Denies personal history of malignancy. DERMATOLOGIC: Denies rashes or pruritus. PSYCHIATRIC: Denies any suicidal or homicidal ideation. Denies hallucinations. PHYSICAL EXAM GENERAL APPEARANCE: The patient is awake, alert, and oriented, in no acute cardiopulmonary distress. NEUROLOGICAL: Cranial nerves II-XII grossly intact. Motor is 5/5 in bilateral upper and lower extremities proximal to distal. No sensory deficits. HEENT: Face is symmetric. Pupils are equal and reactive. Extraocular movements are intact. NECK: Supple. No JVD. No thyromegaly. No submental, submandibular, pre- /postauricular, occipital or supraclavicular lymphadenopathy. CHEST: Normal chest expansion. No Telemetry. LUNGS: Absence of any rales, rhonchi or any wheezing. CARDIOVASCULAR: Regular. S1 and S2 normal. No appreciable rubs, murmurs or gallops. ABDOMEN: Soft, nontender, and nondistended. There is no rebound, voluntary guarding, or rigidity. : Deferred. No Burns. EXTREMITIES: Non-edematous and not cyanotic. No clubbing. Good capillary refill. SKIN: No skin breakdown. Vital Signs (last 8hr) Date Time Temp Pulse Resp B/P (MAP) Pulse Ox O2 Delivery O2 Flow Rate FiO2 10/07/25 12:00 97.5 69 18 165/78 100 Room Air 10/07/25 08:00 97.5 75 16 157/75 99 Room Air LABS: Laboratory: Test 10/07/25 12:16 10/07/25 11:27 10/07/25 06:46 10/07/25 06:43 Range/Units Troponin I High Sensitivity 17 4-75 ng/L Whole Blood Glucose 59 L 70-110 MG/DL Triglycerides Level 54 30-200 mg/dL Cholesterol Level 95 <200 mg/dL LDL Cholesterol 36 0-99 mg/dL HDL Cholesterol 47 29-71 mg/dL Bedside Glucose Comment Notified Nurse Test 10/07/25 03:22 10/06/25 17:07 Range/Units White Blood Count 7.6 4.8-10.8 K/uL Red Blood Count 2.99 L 4.50-6.20 MIL/uL Hemoglobin 9.0 L 14.0-18.0 g/dL Hematocrit 28.5 L 42-54 % Mean Corpuscular Volume 95.3 79-99 fL Mean Corpuscular Hemoglobin 30.1 27.0-33.0 pg Mean Corpuscular Hemoglobin Concent 31.6 L 32.0-36.0 g/dL Red Cell Distribution Width 14.5 11.0-15.5 % Platelet Count 186 130-400 K/uL Mean Platelet Volume 10.1 7.5-10.5 fL Immature Granulocyte % (Auto) 0.3 0-1 % Neutrophils (%) (Auto) 58.8 40.0-77.0 % Lymphocytes (%) (Auto) 27.7 21.0-51.0 % Monocytes (%) (Auto) 9.7 3.0-13.0 % Eosinophils (%) (Auto) 3.0 0.0-8.0 % Basophils (%) (Auto) 0.5 0.0-5.0 % Neutrophils # (Auto) 4.5 1.8-7.7 K/uL Lymphocytes # (Auto) 2.1 1.0-4.8 K/uL Monocytes # (Auto) 0.7 0.1-1.0 K/uL Eosinophils # (Auto) 0.23 0.00-0.70 K/uL Basophils # (Auto) 0.04 0.00-0.20 K/uL Absolute Immature Granulocyte (auto 0.02 0-1 K/uL Nucleated Red Blood Cells 0.0 0.0-0.19 % Sodium Level 141 136-145 mmol/L Potassium Level 3.6 3.5-5.1 mmol/L Chloride Level 104 101-111 mmol/L Carbon Dioxide Level 31 21-32 mmol/L Blood Urea Nitrogen 7 7-18 mg/dL Creatinine 0.9 0.5-1.3 mg/dL Glomerular Filtration Rate Calc 89 >90 mL/min Random Glucose 60 L 70-105 mg/dL Total Calcium 8.1 L 8.5-10.1 mg/dL Phosphorus Level 2.9 2.5-4.9 mg/dL Magnesium Level 1.80 1.80-2.40 mg/dL Thyroid Stimulating Hormone (TSH) 4.34 H 0.36-3.74 uIU/mL Free Thyroxine (T4) Direct 1.08 0.76-1.46 ng/dL Free Triiodothyronine (T3) pg/mL 1.86 L 2.18-3.98 pg/mL Hemoglobin A1c 6.7 H 4.0-6.0 % Estimated Average Glucose (eAG) 146 H 70-126 mg/dL Total Bilirubin 0.3 0.2-1.0 mg/dL Direct Bilirubin 0.1 0.0-0.3 mg/dL Aspartate Amino Transf (AST/SGOT) 15 10-37 U/L Alanine Aminotransferase (ALT/SGPT) 12 12-78 U/L Alkaline Phosphatase 93 50-136 U/L B-Type Natriuretic Peptide 100 0-100 pg/mL Total Protein 6.8 6.0-8.3 g/dL Albumin 3.3 L 3.5-5.0 g/dL Lipase 18 16-77 U/L Current Medications Medications (Trade) Dose Ordered Sig/Cyndi Route PRN Reason Start Time Stop Time Status Last Admin Dose Admin Acetaminophen (TYLenol 325MG TAB) 650 mg Q6H PRN PO TEMPERATURE GREATER THAN 101.5 10/06/25 22:30 11/05/25 22:29 Atorvastatin Calcium (LIPItor 10MG) 10 mg HS PO 10/07/25 21:00 11/06/25 20:59 Cefepime HCl (MAXipime 1 GM vial) 1 gm Q8H IVPB 10/07/25 13:00 10/17/25 12:59 10/07/25 13:52 1 GM Dextrose (D50w) 50 ml AD PRN IV HYPOGLYCEMIA PROTOCOL 10/07/25 07:00 11/06/25 06:59 10/07/25 12:32 50 ML Enoxaparin Sodium (Lovenox) 40 mg DAILY SQ 10/07/25 09:00 11/06/25 08:59 10/07/25 08:15 40 MG Famotidine (Pepcid 20mg Vial) 20 mg DAILY IV 10/07/25 09:00 10/07/25 10:26 DC 10/07/25 08:14 20 MG Ferrous Sulfate (Ferrous Sulfate) 325 mg DAILY PO 10/08/25 09:00 11/07/25 08:59 Glucagon (Glucagon 1mg Kit) 1 mg AD PRN IM HYPOGLYCEMIA PROTOCOL 10/07/25 07:00 11/06/25 06:59 Home Med (Home Medication) QWEEK PO 10/14/25 09:00 11/13/25 08:59 Hydralazine HCl (APRESOLine 20MG INJ) 10 mg Q6H PRN IV For:SBP above 160;DBP above 90 10/06/25 22:30 11/05/25 22:29 Insulin Human Regular (humuLIN R 100 UNIT/ML 3ML) INSULIN SLIDING SCAL... ACHS SQ 10/07/25 07:30 11/06/25 07:29 Lactulose (Constulose 20gm/ 30ml Udcup) 20 gm BID PRN PO CONSTIPATION 10/06/25 22:30 11/05/25 22:29 Levothyroxine Sodium (SYNTHroid 25MCG TAB) 25 mcg ACBKFST PO 10/08/25 07:30 11/07/25 07:29 Lisinopril (Prinivil 5mg) 5 mg DAILY PO 10/08/25 09:00 11/07/25 08:59 Nitroglycerin (Nitroglycerin 1gm Oint) 0.5 inch Q8H TD 10/06/25 22:30 10/09/25 22:29 10/07/25 06:37 0.5 INCH Nitroglycerin (Nitrostat) 0.4 mg AD PRN SL CHEST PAIN 10/06/25 19:00 11/05/25 18:59 10/06/25 20:47 0.4 MG Ondansetron HCl (zoFRAN 4MG INJ) 4 mg Q6H PRN IV NAUSEA/VOMITING 10/06/25 22:30 11/05/25 22:29 Pantoprazole Sodium (PROTonix 40MG TAB) 40 mg BID PO 10/07/25 21:00 11/06/25 20:59 Sodium Chloride 1,000 ml @ 100 mls/hr Q10H IV 10/06/25 22:30 11/05/25 22:29 10/07/25 08:15 100 MLS/HR Tamsulosin HCl (FloMAX) 0.4 mg HS PO 10/07/25 21:00 11/06/25 20:59 Vancomycin HCl 250 ml @ 125 mls/hr DAILY20 IV 10/07/25 20:00 10/17/25 13:59 Vancomycin HCl 250 ml @ 125 mls/hr Q12H IV 10/07/25 14:00 10/07/25 13:53 DC Vancomycin HCl (Vancomycin 1g/ 250ml Kit) 1 gm DAILY20 IV 10/07/25 20:00 10/07/25 13:31 DC DIAGNOSTICS / RADIOLOGY: [ ] ASSESSMENT: [ ] PLAN: [ ] CARL PALMER MD Oct 07, 2025 16:14
--- NOTE | 2025-10-07 18:06 | NUR ---
BEDSIDE SWALLOW ORDER FOR BEDSIDE SWALLOW IN PLACE. UNABLE TO COMMUNICATE WITH SPEECH THERAPIST FOR ETA. PATIENT CONTINUES TO BE NPO. PRIMARY AND CHARGE NURSE NOTIFIED. PENDING CALLBACK FROM PRIMARY FOR RECOMMENDATIONS.
--- NOTE | 2025-10-07 18:23 | NUR ---
UPDATE NOTIFIED PRIMARY OF ASPIRATION DURING GI SERIES, PENDING FURTHER RECOMMENDATIONS
--- NOTE | 2025-10-07 19:26 | PN ---
[facility] PROGRESS NOTE Date of Service: Oct 07, 2025 Time of Service: 15:14 SUBJECTIVE: Mr. Cadena is a 75-year-old male with past medical history significant for type 2 diabetes mellitus, hypertension, and hypothyroidism who presented to the emergency department with chest pain. The pain was described as a bit fixed sensation, rated 9/10 in intensity, located over the left 5th to 6th rib area inferior to the chest. Symptoms began approximately1 week prior and were intermittent in nature on the day of presentation, the pain was associated with shortness of breath, prompting the patient to seek medical evaluation. In the emergency department, patient's CBC, CMP, troponin levels, and chest x- ray were unremarkable. Patient has been admitted for chest pain. 10/07/2025: The patient was seen in room 422 without family present. The patient experienced a hypoglycemic episode with blood glucose dropping to 43 mg/dL. He was placed on the hypoglycemic protocol with subsequent improvement and the glucose levels are currently stable at 125 mg/dL. The patient reports similar episodes at home characterized by dizziness and diaphoresis that improved with oral intake these episodes were felt to be possibly related to Glimepiride which has been since discontinued. We did a repeat EKG which demonstrated no ischemic changes. The patient subsequently underwent an upper GI series which revealed a small hiatal hernia with grade 1 esophageal reflux. He was started on pantoprazole 40 mg IV twice daily. Patient is also being treated for cellulitis with vancomycin and cefepime as part of an outpatient IV antibiotic regimen and Infectious Disease has been consulted. He is scheduled to undergo a barium swallow study tomorrow to assess aspiration risk and determine appropriate diet advancement. The patient remains NPO at this time. REVIEW OF SYSTEMS CONSTITUTIONAL: Denies fevers, chills, or night sweats. No unintentional weight loss reported. NEUROLOGICAL: Denies headache, motor weakness, sensory deficit, vertigo/spinning sensation, gait abnormalities, or tremors. ENT: No hearing loss, rhinitis, rhinorrhea, hoarseness, or sore throat. CARDIOVASCULAR: Chest pain Denies any exertional angina, dyspnea on exertion, orthopnea, paroxysmal nocturnal dyspnea, palpitations PULMONARY: shortness of breath Denies any, cough, phlegm/sputum, hemoptysis, pleuritic chest pain. GASTROINTESTINAL: abdominal pain, Denies any type of dysphagia to either liquids or solids. Denies nausea, vomiting, diarrhea, constipation, or changes in stool consistency or caliber. GENITOURINARY: Denies frequency, urgency, nocturia, hematuria or incontinence. ENDOCRINOLOGIC: Denies polyuria, polydipsia, polyphagia or heat/cold intolerances. DERMATOLOGIC: Denies rashes or pruritus. PHYSICAL EXAM GENERAL APPEARANCE: The patient is awake, alert, and oriented, in no acute cardiopulmonary distress. NEUROLOGICAL: Motor is 5/5 in bilateral upper and lower extremities proximal to distal. No sensory deficits. HEENT: Face is symmetric. Pupils are equal and reactive. Extraocular movements are intact. NECK: Supple. No JVD. No thyromegaly. No submental, submandibular, pre- /postauricular, occipital or supraclavicular lymphadenopathy. CHEST: Normal chest expansion. On Telemetry. LUNGS: Absence of any rales, rhonchi or any wheezing. CARDIOVASCULAR: Regular. S1 and S2 normal. No appreciable rubs, murmurs or gallops. ABDOMEN: Soft, epigastric tenderness, and nondistended. There is no rebound, voluntary guarding, or rigidity. : Deferred. No Burns. EXTREMITIES: Non-edematous and not cyanotic. No clubbing. Left lower leg felton a +2 SKIN: Cellulitis covered by bandages on the right leg Vital Signs (last 8hr) Date Time Temp Pulse Resp B/P (MAP) Pulse Ox O2 Delivery O2 Flow Rate FiO2 10/07/25 12:00 97.5 69 18 165/78 100 Room Air 10/07/25 08:00 97.5 75 16 157/75 99 Room Air LABS: Laboratory: Test 10/07/25 12:16 10/07/25 11:27 10/07/25 06:46 10/07/25 06:43 Range/Units Troponin I High Sensitivity 17 4-75 ng/L Whole Blood Glucose 59 L 70-110 MG/DL Triglycerides Level 54 30-200 mg/dL Cholesterol Level 95 <200 mg/dL LDL Cholesterol 36 0-99 mg/dL HDL Cholesterol 47 29-71 mg/dL Bedside Glucose Comment Notified Nurse Test 10/07/25 03:22 10/06/25 17:07 Range/Units White Blood Count 7.6 4.8-10.8 K/uL Red Blood Count 2.99 L 4.50-6.20 MIL/uL Hemoglobin 9.0 L 14.0-18.0 g/dL Hematocrit 28.5 L 42-54 % Mean Corpuscular Volume 95.3 79-99 fL Mean Corpuscular Hemoglobin 30.1 27.0-33.0 pg Mean Corpuscular Hemoglobin Concent 31.6 L 32.0-36.0 g/dL Red Cell Distribution Width 14.5 11.0-15.5 % Platelet Count 186 130-400 K/uL Mean Platelet Volume 10.1 7.5-10.5 fL Immature Granulocyte % (Auto) 0.3 0-1 % Neutrophils (%) (Auto) 58.8 40.0-77.0 % Lymphocytes (%) (Auto) 27.7 21.0-51.0 % Monocytes (%) (Auto) 9.7 3.0-13.0 % Eosinophils (%) (Auto) 3.0 0.0-8.0 % Basophils (%) (Auto) 0.5 0.0-5.0 % Neutrophils # (Auto) 4.5 1.8-7.7 K/uL Lymphocytes # (Auto) 2.1 1.0-4.8 K/uL Monocytes # (Auto) 0.7 0.1-1.0 K/uL Eosinophils # (Auto) 0.23 0.00-0.70 K/uL Basophils # (Auto) 0.04 0.00-0.20 K/uL Absolute Immature Granulocyte (auto 0.02 0-1 K/uL Nucleated Red Blood Cells 0.0 0.0-0.19 % Sodium Level 141 136-145 mmol/L Potassium Level 3.6 3.5-5.1 mmol/L Chloride Level 104 101-111 mmol/L Carbon Dioxide Level 31 21-32 mmol/L Blood Urea Nitrogen 7 7-18 mg/dL Creatinine 0.9 0.5-1.3 mg/dL Glomerular Filtration Rate Calc 89 >90 mL/min Random Glucose 60 L 70-105 mg/dL Total Calcium 8.1 L 8.5-10.1 mg/dL Phosphorus Level 2.9 2.5-4.9 mg/dL Magnesium Level 1.80 1.80-2.40 mg/dL Thyroid Stimulating Hormone (TSH) 4.34 H 0.36-3.74 uIU/mL Free Thyroxine (T4) Direct 1.08 0.76-1.46 ng/dL Free Triiodothyronine (T3) pg/mL 1.86 L 2.18-3.98 pg/mL Hemoglobin A1c 6.7 H 4.0-6.0 % Estimated Average Glucose (eAG) 146 H 70-126 mg/dL Total Bilirubin 0.3 0.2-1.0 mg/dL Direct Bilirubin 0.1 0.0-0.3 mg/dL Aspartate Amino Transf (AST/SGOT) 15 10-37 U/L Alanine Aminotransferase (ALT/SGPT) 12 12-78 U/L Alkaline Phosphatase 93 50-136 U/L B-Type Natriuretic Peptide 100 0-100 pg/mL Total Protein 6.8 6.0-8.3 g/dL Albumin 3.3 L 3.5-5.0 g/dL Lipase 18 16-77 U/L Current Medications Medications (Trade) Dose Ordered Sig/Cyndi Route PRN Reason Start Time Stop Time Status Last Admin Dose Admin Acetaminophen (TYLenol 325MG TAB) 650 mg Q6H PRN PO TEMPERATURE GREATER THAN 101.5 10/06/25 22:30 11/05/25 22:29 Atorvastatin Calcium (LIPItor 10MG) 10 mg HS PO 10/07/25 21:00 11/06/25 20:59 Cefepime HCl (MAXipime 1 GM vial) 1 gm Q8H IVPB 10/07/25 13:00 10/17/25 12:59 10/07/25 13:52 1 GM Dextrose (D50w) 50 ml AD PRN IV HYPOGLYCEMIA PROTOCOL 10/07/25 07:00 11/06/25 06:59 10/07/25 12:32 50 ML Enoxaparin Sodium (Lovenox) 40 mg DAILY SQ 10/07/25 09:00 11/06/25 08:59 10/07/25 08:15 40 MG Famotidine (Pepcid 20mg Vial) 20 mg DAILY IV 10/07/25 09:00 10/07/25 10:26 DC 10/07/25 08:14 20 MG Ferrous Sulfate (Ferrous Sulfate) 325 mg DAILY PO 10/08/25 09:00 11/07/25 08:59 Glucagon (Glucagon 1mg Kit) 1 mg AD PRN IM HYPOGLYCEMIA PROTOCOL 10/07/25 07:00 11/06/25 06:59 Home Med (Home Medication) QWEEK PO 10/14/25 09:00 11/13/25 08:59 Hydralazine HCl (APRESOLine 20MG INJ) 10 mg Q6H PRN IV For:SBP above 160;DBP above 90 10/06/25 22:30 11/05/25 22:29 Insulin Human Regular (humuLIN R 100 UNIT/ML 3ML) INSULIN SLIDING SCAL... ACHS SQ 10/07/25 07:30 11/06/25 07:29 Lactulose (Constulose 20gm/ 30ml Udcup) 20 gm BID PRN PO CONSTIPATION 10/06/25 22:30 11/05/25 22:29 Levothyroxine Sodium (SYNTHroid 25MCG TAB) 25 mcg ACBKFST PO 10/08/25 07:30 11/07/25 07:29 Lisinopril (Prinivil 5mg) 5 mg DAILY PO 10/08/25 09:00 11/07/25 08:59 Nitroglycerin (Nitroglycerin 1gm Oint) 0.5 inch Q8H TD 10/06/25 22:30 10/09/25 22:29 10/07/25 06:37 0.5 INCH Nitroglycerin (Nitrostat) 0.4 mg AD PRN SL CHEST PAIN 10/06/25 19:00 11/05/25 18:59 10/06/25 20:47 0.4 MG Ondansetron HCl (zoFRAN 4MG INJ) 4 mg Q6H PRN IV NAUSEA/VOMITING 10/06/25 22:30 11/05/25 22:29 Pantoprazole Sodium (PROTonix 40MG TAB) 40 mg BID PO 10/07/25 21:00 11/06/25 20:59 Sodium Chloride 1,000 ml @ 100 mls/hr Q10H IV 10/06/25 22:30 11/05/25 22:29 10/07/25 08:15 100 MLS/HR Tamsulosin HCl (FloMAX) 0.4 mg HS PO 10/07/25 21:00 11/06/25 20:59 Vancomycin HCl 250 ml @ 125 mls/hr DAILY20 IV 10/07/25 20:00 10/17/25 13:59 Vancomycin HCl 250 ml @ 125 mls/hr Q12H IV 10/07/25 14:00 10/07/25 13:53 DC Vancomycin HCl (Vancomycin 1g/ 250ml Kit) 1 gm DAILY20 IV 10/07/25 20:00 10/07/25 13:31 DC DIAGNOSTICS / RADIOLOGY: [place] [id number] [place] [id number] IMAGING REPORT Signed PATIENT: NEELIMA CADENA MR#: [id number] : 1950 SEX: M AGE: 75 LOCATION: [facility] ORDER 01 STATUS: REG ER REPORT#: [id number] SERVICE 99 REASON: cp ORDERING PHYSICIAN: WOLFGANG SOARES CNP PROCEDURE: CXR1VW - CHEST 1VW EXAM: CR Chest, 1 View. CLINICAL HISTORY: cp COMPARISON: None provided. FINDINGS: PICC overlies the expected location of the right axillary vessels. LUNGS: There is no mass, infiltrate, or acute pulmonary abnormality. PLEURAL SPACES: No evidence of pleural effusion or pneumothorax. MEDIASTINUM: The cardiomediastinal silhouette is within normal limits. BONES: No aggressive appearing osseous lesion seen. IMPRESSION: No acute cardiopulmonary pathology is evident. /[place] DICTATED BY: ZAID JONES Jr., MD DATE: 10/06/251925 ELECTRONICALLY SIGNED BY: ZAID JONES Jr., MD DATE: 10/06/251925 [place] [address] [address] IMAGING REPORT Signed PATIENT: NEELIMA CADENA MR#: [id number] : 1950 SEX: M AGE: 75 LOCATION: 4DH ORDER 150 STATUS: ADM IN REPORT#: [id number] SERVICE 150 REASON: SEVERE ACID REFLUX WITH EPIGASTRIC PAIN ORDERING PHYSICIAN: CARL PALMER MD PROCEDURE: UGI WO KUB - UPPER GI TRACT, WO KUB DOUBLE CONTRAST UPPER GI SERIES: Finding: The study was performed using provocative maneuvers After swallowing effervescent crystal and thick barium, there is no definite intrinsic or extrinsic lesion seen in the esophagus. There is a small hiatal hernia with grade 1 esophageal reflux. At the edges study patient is noted to have aspiration into the trachea and the left main bronchus. The stomach is normal in size, shape, and configuration. The rugal folds appear to be normal. The duodenal bulb, duodenal sweep, and upper jejunum appear to be normal. Fluoroscopy time: 2.1 minutes IMPRESSION: Patient is noted during the study to have aspiration into the trachea and the left main bronchus Small hiatal hernia with grade 1 esophageal reflux I would recommend a modified barium swallow with speech pathologist and to keep patient nothing by mouth. DICTATED BY: JG ARROYO MD DATE: 10/07/25 152 ELECTRONICALLY SIGNED BY: JG ARROYO MD DATE: 10/07/251524 ASSESSMENT: Chest pain likely due to GERD Type 2 diabetes mellitus Small hiatal hernia with grade 1 esophageal reflux Cellulitis of lower limb PLAN: Chest pain likely due to GERD: * Patient's EKG in the ER shows Sinus tachycardia, repeat EKG shows no ischemic changes * Troponin trending in the normal levels, chest x-ray shows no acute cardiopulmonary pathology * Patient is tender in the epigastric region and says the chest pain increased with eating * Patient underwent upper GI series which showed small hiatal hernia with grade 1 esophageal reflux * Patient is started on pantoprazole 40 mg IV b.i.d. Type 2 diabetes mellitus: * Patient had hypoglycemic episode in the hospital with his sugar levels dropping as low as 43 * Patient initiated on hypoglycemia protocol, which improved his glucose levels, currently at 125 * Patient has these episodes at home as well, so discontinued glimepiride with the patient was on * Patient on insulin sliding scale Cellulitis of lower limb: * Patient getting outpatient IV medications of vancomycin and cefepime for his cellulitis * We will continue medication in the hospital * ID has been consulted GI prophylaxis with pantoprazole 40 mg b.i.d. DVT prophylaxis with enoxaparin sodium 40 mg SQ We will request labs in am Further orders to follow depending on above results ATTESTATION BY PHYSICIAN I have seen and examined the patient. I reviewed the documentation, medical decision making, and treatment plan as noted by the resident physician above. I agree with the findings and plan of care. Tim Deal IV, MD, ABHINAV MD Oct 07, 2025 19:26
[2025-10-07] MEDS ORDERED: VANCOMYCIN KIT 1 GM/250 ML IV.KIT IV SCH (20:00)
[2025-10-07] MEDS: VANCOMYCIN 1G/250ML KIT 250 ML IV SCH (20:40)
[2025-10-08] VITALS: BP 156/71; PULSE 84; RESP 16; TEMP 97.9
--- NOTE | 2025-10-08 04:12 | PN ---
INFECTIOUS DISEASE FOLLOWUP NOTE DATE OF SERVICE: 10/07/2025 SUBJECTIVE: The patient is seen and examined at bedside. No fever or chills. The patient is admitted with chest pain. No nausea, vomiting, abdominal pain. No cough. No shortness of breath. No dysuria or hematuria. The patient is tolerating antibiotic. PHYSICAL EXAMINATION: VITAL SIGNS: Temperature 97.6. EYES: No icterus. Pupils equal and reactive. HEENT: No oral thrush seen. Moist oral mucosa. NECK: Supple. No JVD or thyromegaly. LUNGS: Good air entry. No rales. No rhonchi. CARDIOVASCULAR: S1 and S2, regular. No murmur or gallop. ABDOMEN: Full, soft, nontender. Bowel sound is present. CENTRAL NERVOUS SYSTEM: Awake, alert, oriented x 3. No focal deficits. SKIN: No rashes. LYMPHATIC: No peripheral lymphadenopathy. BACK: No deformity. No pressure ulcer. EXTREMITIES: Edema with ulcers involving the posterior aspect of the left leg is improving. ASSESSMENT: A 75-year-old male with chest pain. Current problems include: * Left lower extremity cellulitis. * Right leg ulcer and cellulitis. * Obesity. * Hypertension. * Diabetes mellitus. * Recurrent cellulitis. PLAN: * Continue vancomycin. * Continue cefepime. * Continue wound care. * Continue pain monitoring. * Continue nutritional support. * Continue GI prophylaxis and wound care left leg. * Continue antiemetic. TID: [id number] RECEIPT: [id number]
[2025-10-08 05:04] LABS: NUCLEATED RED BLOOD CELLS 0.0 % (0.0-0.19); PLATELET COUNT (AUTO) 203.0 K/uL (130-400); RED BLOOD CELL COUNT(AUTO) 2.92 MIL/uL (4.50-6.20); RED CELL DISTRIBUTION WIDTH 14.3 % (11.0-15.5); WHITE BLOOD COUNT (AUTO) 7.3 K/uL (4.8-10.8)
[2025-10-08 05:26] LABS: ASPARTATE AMINOTRANSFERASE 16.0 U/L (10-37); CREATININE 0.8 mg/dL (0.5-1.3); GLOMERULAR FILTR. RATE CALC 92.0 mL/min (>90); GLUCOSE,RANDOM 61.0 mg/dL (70-105); LDL DIRECT 30.0 mg/dL (0-99); SODIUM SERUM 139.0 mmol/L (136-145); TOTAL PROTEIN, SERUM 5.9 g/dL (6.0-8.3); UREA NITROGEN, BLOOD 6.0 mg/dL (7-18)
--- NOTE | 2025-10-08 07:48 | NUR ---
BEDSIDE DYSPHAGIA EVALUATION COMPLETED. RECOMMEND SOFT & BITE SIZED TEXTURE, MILDLY THICK LIQUIDS, PILLS WHOLE ONE AT A TIME. COMPENSATORY STRATEGIES INCLUDE: SEATED AT 90, NO STRAWS, SMALL BITES AND SIPS AND SLOW RATE OF INTAKE. SKILLED SPEECH THERAPY IS RECOMMENDED TARGETING SWALLOWING 1-5XWK FOR 4 WKS. GOALS: LTG#1: PATIENT WILL TOLERATE LEAST RESTRICTIVE DIET WITH NO OVERT S/S OF ASPIRATION AND MEET ADEQUATE NUTRITION/HYDRATION. STG#1: PATIENT WILL TOLERATE SOFT & BITE SIZED, MILDLY THICK LIQUIDS DIET WITH NO OVERT S/S OF ASPIRATION. STG#2: PATIENT WILL COMPLETE LAREX, BOT, AND CTAR EXERCISES WITH 80% ACCURACY. STG#3: PATIENT WILL COMPLETE SWALLOWING MANEUVERS WITH 80% ACCURACY. STG#4: SKILLED EDUCATION PATIENT/FAMILY/STAFF DETERMINED VIA TEACH BACK METHOD WITH 90% ACCURACY. ASPIRATION PRECAUTION SIGN PLACED AT THE HEAD OF THE BED. RESULTS AND RECOMMENDATIONS WERE DISCUSSED WITH NURSE VILLALPANDO. PATIENT LEFT SEATED IN CHAIR, CARE TRANSFERRED TO NURSE PATIENT REQUIRING CHAIR ALARM AT THIS TIME. ALL QUESTIONS ANSWERED AT THIS TIME. MBSS IS NOT RECOMMENDED PATIENT'S CURRENT RECOMMENDATIONS ARE IN LINE WITH PRIOR MBSS ON 09/27/2025 (11 DAYS AGO) AT THIS FACILITY). Addendum: 10/08/[address] [facility] MATTHEWS Amended: Links added.
[2025-10-08 08:00] VITALS: BP 133/62; PULSE 88; RESP 16; TEMP 98
[2025-10-08 08:09] VITALS: O2SAT 97
[2025-10-08] MEDS ORDERED: VANCOMYCIN 1G/250ML KIT 250 ML IV SCH (09:00)
[2025-10-08 09:57] LABS: % IRON SATURATION 17.7 % (30-44); IRON, SERUM 50.0 mcg/dL (65-175)
[2025-10-08] MEDS: FERROUS SULFATE 325 MG TABLET.DR PO SCH (10:09)
[2025-10-08] MEDS: LISINOPRIL 5 MG TABLET PO SCH (10:10)
[2025-10-08 12:00] VITALS: BP 150/66; PULSE 74; RESP 17; TEMP 97.9
--- NOTE | 2025-10-08 13:53 | PN ---
[facility] PROGRESS NOTE Date of Service: Oct 08, 2025 Time of Service: 13:41 SUBJECTIVE: Mr. Cadena is a 75-year-old male with past medical history significant for type 2 diabetes mellitus, hypertension, and hypothyroidism who presented to the emergency department with chest pain. The pain was described as a bit fixed sensation, rated 9/10 in intensity, located over the left 5th to 6th rib area inferior to the chest. Symptoms began approximately1 week prior and were intermittent in nature on the day of presentation, the pain was associated with shortness of breath, prompting the patient to seek medical evaluation. In the emergency department, patient's CBC, CMP, troponin levels, and chest x- ray were unremarkable. Patient has been admitted for chest pain. 10/07/2025: The patient was seen in room 422 without family present. The patient experienced a hypoglycemic episode with blood glucose dropping to 43 mg/dL. He was placed on the hypoglycemic protocol with subsequent improvement and the glucose levels are currently stable at 125 mg/dL. The patient reports similar episodes at home characterized by dizziness and diaphoresis that improved with oral intake these episodes were felt to be possibly related to Glimepiride which has been since discontinued. We did a repeat EKG which demonstrated no ischemic changes. The patient subsequently underwent an upper GI series which revealed a small hiatal hernia with grade 1 esophageal reflux. He was started on pantoprazole 40 mg IV twice daily. Patient is also being treated for cellulitis with vancomycin and cefepime as part of an outpatient IV antibiotic regimen and Infectious Disease has been consulted. He is scheduled to undergo a barium swallow study tomorrow to assess aspiration risk and det ermine appropriate diet advancement. The patient remains NPO at this time. 10/08/2025: The patient was seen in room 422 without family present. Patient had a speech study performed this morning and they recommended; Food Consiste ncy: Oral Intake; Diet Recommendations: Soft & Bite Sized, Mildly Thick; Pills' Administration Recommendations: Whole 1 per Swallow; Swallow Strategies and Precautions: Sitting Upright (90 deg), No Straw, Upright 30 min after meal, Small Bites and Sips, Slow Rate. So we started him on heart healthy diet with the above recommendation. Modified barium swallow study is not performed over the weekend and have to wait until Friday. The patient still complains of pain in the left side of the chest so we ordered a CT chest without contrast to see if there is any soft tissue injury. The test has been performed waiting on the report. Patient continues to get vancomycin and cefepime for his cellulitis. Wound Care has been consulted. REVIEW OF SYSTEMS CONSTITUTIONAL: Denies fevers, chills, or night sweats. No unintentional weight loss reported. NEUROLOGICAL: Denies headache, motor weakness, sensory deficit, vertigo/spinning sensation, gait abnormalities, or tremors. ENT: No hearing loss, rhinitis, rhinorrhea, hoarseness, or sore throat. CARDIOVASCULAR: Chest pain Denies any exertional angina, dyspnea on exertion, orthopnea, paroxysmal nocturnal dyspnea, palpitations PULMONARY: Denies any, cough, phlegm/sputum, hemoptysis, pleuritic chest pain, shortness of breath GASTROINTESTINAL: abdominal pain, Denies any type of dysphagia to either liquids or solids. Denies nausea, vomiting, diarrhea, constipation, or changes in stool consistency or caliber. GENITOURINARY: Denies frequency, urgency, nocturia, hematuria or incontinence. ENDOCRINOLOGIC: Denies polyuria, polydipsia, polyphagia or heat/cold intolerances. DERMATOLOGIC: Denies rashes or pruritus. PHYSICAL EXAM GENERAL APPEARANCE: The patient is awake, alert, and oriented, in no acute cardiopulmonary distress. NEUROLOGICAL: Motor is 5/5 in bilateral upper and lower extremities proximal to distal. No sensory deficits. HEENT: Face is symmetric. Pupils are equal and reactive. Extraocular movements are intact. NECK: Supple. No JVD. No thyromegaly. No submental, submandibular, pre- /postauricular, occipital or supraclavicular lymphadenopathy. CHEST: Normal chest expansion. On Telemetry. Tenderness on the left side LUNGS: Absence of any rales, rhonchi or any wheezing. CARDIOVASCULAR: Regular. S1 and S2 normal. No appreciable rubs, murmurs or gallops. ABDOMEN: Soft, epigastric tenderness, and nondistended. There is no rebound, voluntary guarding, or rigidity. : Deferred. No Burns. EXTREMITIES: Non-edematous and not cyanotic. No clubbing. Left lower leg edema +2 SKIN: Cellulitis covered by bandages on the right leg Vital Signs (last 8hr) Date Time Temp Pulse Resp B/P (MAP) Pulse Ox O2 Delivery O2 Flow Rate FiO2 10/08/25 12:00 97.9 74 17 150/66 98 Room Air 10/08/25 08:00 98.1 88 16 133/62 97 Room Air LABS: Laboratory: Test 10/08/25 11:31 10/08/25 09:13 10/08/25 04:15 10/07/25 19:00 Range/Units Whole Blood Glucose 90 70-110 MG/DL Iron Level 50 #L 65-175 mcg/dL Total Iron Binding Capacity 282 250-450 mcg/dL Percent Iron Saturation 17.7 L 30-44 % White Blood Count 7.3 4.8-10.8 K/uL Red Blood Count 2.92 L 4.50-6.20 MIL/uL Hemoglobin 9.0 L 14.0-18.0 g/dL Hematocrit 27.1 L 42-54 % Mean Corpuscular Volume 92.8 79-99 fL Mean Corpuscular Hemoglobin 30.8 27.0-33.0 pg Mean Corpuscular Hemoglobin Concent 33.2 32.0-36.0 g/dL Red Cell Distribution Width 14.3 11.0-15.5 % Platelet Count 203 130-400 K/uL Mean Platelet Volume 10.1 7.5-10.5 fL Nucleated Red Blood Cells 0.0 0.0-0.19 % Sodium Level 139 136-145 mmol/L Potassium Level 4.1 3.5-5.1 mmol/L Chloride Level 105 101-111 mmol/L Carbon Dioxide Level 29 21-32 mmol/L Blood Urea Nitrogen 6 L 7-18 mg/dL Creatinine 0.8 0.5-1.3 mg/dL Glomerular Filtration Rate Calc 92 >90 mL/min Random Glucose 61 L 70-105 mg/dL Total Calcium 8.0 L 8.5-10.1 mg/dL Total Bilirubin 0.5 0.2-1.0 mg/dL Direct Bilirubin 0.1 0.0-0.3 mg/dL Aspartate Amino Transf (AST/SGOT) 16 10-37 U/L Alanine Aminotransferase (ALT/SGPT) 9 L 12-78 U/L Alkaline Phosphatase 85 50-136 U/L Total Protein 5.9 L 6.0-8.3 g/dL Albumin 2.8 L 3.5-5.0 g/dL Triglycerides Level 48 30-200 mg/dL Cholesterol Level 80 <200 mg/dL LDL Cholesterol 30 0-99 mg/dL HDL Cholesterol 44 29-71 mg/dL Vancomycin Level 9.4 L 20.0-30.0 mcg/mL Test 10/07/25 12:16 10/07/25 06:43 10/07/25 03:22 10/06/25 17:07 Range/Units Troponin I High Sensitivity 17 4-75 ng/L Bedside Glucose Comment Notified Nurse Immature Granulocyte % (Auto) 0.3 0-1 % Neutrophils (%) (Auto) 58.8 40.0-77.0 % Lymphocytes (%) (Auto) 27.7 21.0-51.0 % Monocytes (%) (Auto) 9.7 3.0-13.0 % Eosinophils (%) (Auto) 3.0 0.0-8.0 % Basophils (%) (Auto) 0.5 0.0-5.0 % Neutrophils # (Auto) 4.5 1.8-7.7 K/uL Lymphocytes # (Auto) 2.1 1.0-4.8 K/uL Monocytes # (Auto) 0.7 0.1-1.0 K/uL Eosinophils # (Auto) 0.23 0.00-0.70 K/uL Basophils # (Auto) 0.04 0.00-0.20 K/uL Absolute Immature Granulocyte (auto 0.02 0-1 K/uL Phosphorus Level 2.9 2.5-4.9 mg/dL Magnesium Level 1.80 1.80-2.40 mg/dL Thyroid Stimulating Hormone (TSH) 4.34 H 0.36-3.74 uIU/mL Free Thyroxine (T4) Direct 1.08 0.76-1.46 ng/dL Free Triiodothyronine (T3) pg/mL 1.86 L 2.18-3.98 pg/mL Hemoglobin A1c 6.7 H 4.0-6.0 % Estimated Average Glucose (eAG) 146 H 70-126 mg/dL B-Type Natriuretic Peptide 100 0-100 pg/mL Lipase 18 16-77 U/L Current Medications Medications (Trade) Dose Ordered Sig/Cyndi Route PRN Reason Start Time Stop Time Status Last Admin Dose Admin Acetaminophen (TYLenol 325MG TAB) 650 mg Q6H PRN PO TEMPERATURE GREATER THAN 101.5 10/06/25 22:30 11/05/25 22:29 Atorvastatin Calcium (LIPItor 10MG) 10 mg HS PO 10/07/25 21:00 11/06/25 20:59 Cefepime HCl (MAXipime 1 GM vial) 1 gm Q8H IVPB 10/07/25 13:00 10/17/25 12:59 10/08/25 12:23 1 GM Dextrose (D50w) 50 ml AD PRN IV HYPOGLYCEMIA PROTOCOL 10/07/25 07:00 11/06/25 06:59 10/07/25 12:32 50 ML Enoxaparin Sodium (Lovenox) 40 mg DAILY SQ 10/07/25 09:00 11/06/25 08:59 10/08/25 10:11 40 MG Famotidine (Pepcid 20mg Vial) 20 mg DAILY IV 10/07/25 09:00 10/07/25 10:26 DC 10/07/25 08:14 20 MG Ferrous Sulfate (Ferrous Sulfate) 325 mg DAILY PO 10/08/25 09:00 11/07/25 08:59 10/08/25 10:09 325 MG Glucagon (Glucagon 1mg Kit) 1 mg AD PRN IM HYPOGLYCEMIA PROTOCOL 10/07/25 07:00 11/06/25 06:59 Home Med (Home Medication) QWEEK PO 10/14/25 09:00 11/13/25 08:59 Hydralazine HCl (APRESOLine 20MG INJ) 10 mg Q6H PRN IV For:SBP above 160;DBP above 90 10/06/25 22:30 11/05/25 22:29 Insulin Human Regular (humuLIN R 100 UNIT/ML 3ML) INSULIN SLIDING SCAL... ACHS SQ 10/07/25 07:30 11/06/25 07:29 Lactulose (Constulose 20gm/ 30ml Udcup) 20 gm BID PRN PO CONSTIPATION 10/06/25 22:30 11/05/25 22:29 Levothyroxine Sodium (SYNTHroid 25MCG TAB) 25 mcg ACBKFST PO 10/08/25 07:30 11/07/25 07:29 Lisinopril (Prinivil 5mg) 5 mg DAILY PO 10/08/25 09:00 11/07/25 08:59 10/08/25 10:10 5 MG Nitroglycerin (Nitroglycerin 1gm Oint) 0.5 inch Q8H TD 10/06/25 22:30 10/09/25 22:29 10/08/25 05:42 0.5 INCH Nitroglycerin (Nitrostat) 0.4 mg AD PRN SL CHEST PAIN 10/06/25 19:00 11/05/25 18:59 10/06/25 20:47 0.4 MG Ondansetron HCl (zoFRAN 4MG INJ) 4 mg Q6H PRN IV NAUSEA/VOMITING 10/06/25 22:30 11/05/25 22:29 Pantoprazole Sodium (PROTonix 40MG INJ) 40 mg BID IVP 10/07/25 21:00 11/06/25 20:59 10/08/25 10:10 40 MG Pantoprazole Sodium (PROTonix 40MG TAB) 40 mg BID PO 10/07/25 21:00 10/07/25 18:59 DC Sodium Chloride 1,000 ml @ 100 mls/hr Q10H IV 10/06/25 22:30 11/05/25 22:29 10/07/25 18:17 100 MLS/HR Tamsulosin HCl (FloMAX) 0.4 mg HS PO 10/07/25 21:00 11/06/25 20:59 Vancomycin HCl 250 ml @ 125 mls/hr DAILY20 IV 10/07/25 20:00 10/07/25 20:23 DC Vancomycin HCl 250 ml @ 125 mls/hr DAILY20 IV 10/08/25 20:00 10/18/25 19:59 Vancomycin HCl 250 ml @ 125 mls/hr Q12H IV 10/07/25 14:00 10/07/25 13:53 DC Vancomycin HCl 250 ml @ 125 mls/hr Q12H IV 10/08/25 04:00 10/08/25 06:06 DC 10/07/25 20:40 125 MLS/HR Vancomycin HCl 250 ml @ 125 mls/hr Q12H IV 10/08/25 09:00 10/08/25 09:01 DC Vancomycin HCl (Vancomycin 1g/ 250ml Kit) 1 gm DAILY20 IV 10/07/25 20:00 10/07/25 13:31 DC DIAGNOSTICS / RADIOLOGY: [place] [address] [address] IMAGING REPORT Signed PATIENT: NEELIMA CADENA MR#: [id number] : 1950 SEX: M AGE: 75 LOCATION: 4DH ORDER 150 STATUS: ADM IN REPORT#: [id number] SERVICE 1501 REASON: SEVERE ACID REFLUX WITH EPIGASTRIC PAIN ORDERING PHYSICIAN: CARL PALMER MD PROCEDURE: UGI WO KUB - UPPER GI TRACT, WO KUB DOUBLE CONTRAST UPPER GI SERIES: Finding: The study was performed using provocative maneuvers After swallowing effervescent crystal and thick barium, there is no definite intrinsic or extrinsic lesion seen in the esophagus. There is a small hiatal hernia with grade 1 esophageal reflux. At the edges study patient is noted to have aspiration into the trachea and the left main bronchus. The stomach is normal in size, shape, and configuration. The rugal folds appear to be normal. The duodenal bulb, duodenal sweep, and upper jejunum appear to be normal. Fluoroscopy time: 2.1 minutes IMPRESSION: Patient is noted during the study to have aspiration into the trachea and the left main bronchus Small hiatal hernia with grade 1 esophageal reflux I would recommend a modified barium swallow with speech pathologist and to keep patient nothing by mouth. DICTATED BY: JG ARROYO MD DATE: 10/07/25 152 ELECTRONICALLY SIGNED BY: JG ARROYO MD DATE: 10/07/25 152 ASSESSMENT: Chest pain likely due to GERD Type 2 diabetes mellitus Small hiatal hernia with grade 1 esophageal reflux Cellulitis of lower limb PLAN: Chest pain likely due to GERD: * Patient's EKG in the ER shows Sinus tachycardia, repeat EKG shows no ischemic changes * Troponin trending in the normal levels, chest x-ray shows no acute cardiopulmonary pathology * Patient is tender in the epigastric region and says the chest pain increased with eating * Patient is tender on the left side of his chest, chest CT has been ordered to check for soft tissue injury Type 2 diabetes mellitus: * Patient had hypoglycemic episode in the hospital with his sugar levels dropping as low as 43 * Patient initiated on hypoglycemia protocol, which improved his glucose levels, currently at 125 * Patient has these episodes at home as well, so discontinued glimepiride with the patient was on * Patient on insulin sliding scale Cellulitis of lower limb: * Patient getting outpatient IV medications of vancomycin and cefepime for his cellulitis * We will continue medication in the hospital * ID has been consulted Small hiatal hernia with grade 1 esophageal reflux: * Patient is tender in the epigastric region and says the chest pain increased with eating * Patient underwent upper GI series which showed small hiatal hernia with grade 1 esophageal reflux * Patient is started on pantoprazole 40 mg IV b.i.d. GI prophylaxis with pantoprazole 40 mg b.i.d. DVT prophylaxis with enoxaparin sodium 40 mg SQ We will request labs in am Further orders to follow depending on above results ATTESTATION BY PHYSICIAN I have seen and examined the patient. I reviewed the documentation, medical decision making, and treatment plan as noted by the resident physician above. I agree with the findings and plan of care. ALEJA IZQUIERDO MD, ABHINAV MD Oct 08, 2025 13:53
[2025-10-08 16:00] VITALS: BP 148/63; PULSE 89; RESP 17; TEMP 97.8
--- NOTE | 2025-10-08 18:19 | PN ---
INFECTIOUS DISEASE PROGRESS NOTE Date of Service: Oct 08, 2025 SUBJECTIVE: This is a 75-year-old male patient who was recently discharged from this facility to continue outpatient IV antibiotics with [facility] with vancomycin and cefepime for 2 weeks for bilateral lower extremity cellulitis and right lower extremity wound with polymicrobial infection, Enterococcus faecalis, Pseudomonas aeruginosa and Serratia marcescens. On this admission patient presented with chief complaint of chest pain. Troponin were negative and a chest x-ray was negative. A GI series study reported aspiration into the trachea and the left main bronchus and grade 1 esophageal reflux with rec ommendation for speech therapy evaluation and to keep patient NPO. Patient however was evaluated by speech therapy this morning and has recommended a soft and bite size texture with mildly thick liquid based on recent MBS study done on 09/27/2025. During rounding today patient is awake, alert and oriented x3. Sitting up on the bedside chair having lunch and in no respiratory distress. Saturating 95-97% on room air. No fever and the WBC is 7.3. Continues on vancomycin and cefepime. Upon discharge patient will need to continue on current IV antibiotics for 2 more weeks. PHYSICAL EXAM EYES: Anicteric. Pupils equal and reactive. HENT: No oral thrush seen, moist Oral mucosa NECK: Supple, no JVD or thyromegaly. LUNGS: Good air entry. No rales, no rhonchi. CARDIOVASCULAR: S1, S2 regular. No murmur heard. ABDOMEN: Soft, non tender, bowel sounds present. CENTRAL NERVOUS SYSTEM: Awake, alert, oriented x 3. SKIN: No rashes, no swelling. Bilateral lower extremity cellulitis. LYMPHATICS: No peripheral lymphadenopathy MUSCULOSKELETAL: No joint swelling, erythema or tenderness. EXTREMITIES: No cyanosis or clubbing. Right lower extremity wound. BACK: No deformity, no pressure ulcer. GENITOURINARY: No dysuria or hematuria. Vital Sign (Last 12 Hours) 10/08/25 10/08/25 10/08/25 10/08/25 08:00 08:09 12:00 16:00 Temp 98.1 97.9 97.9 Pulse 88 74 89 Resp 16 17 17 B/P (MAP) 133/62 150/66 148/63 Pulse Ox 97 97 98 98 O2 Delivery Room Air Room Air* Room Air Room Air O2 Flow Rate 0 FiO2 21 Intake & Output (last 24hrs) 10/07/25 10/07/25 10/08/25 15:00 23:00 07:00 Output Total 700 ml 575 ml Balance -700 ml -575 ml LABS: Laboratory: Test 10/08/25 15:49 10/08/25 09:13 10/08/25 04:15 10/07/25 19:00 Range/Units Whole Blood Glucose 193 #H 70-110 MG/DL Bedside Glucose Comment Notified Nurse Iron Level 50 #L 65-175 mcg/dL Total Iron Binding Capacity 282 250-450 mcg/dL Percent Iron Saturation 17.7 L 30-44 % White Blood Count 7.3 4.8-10.8 K/uL Red Blood Count 2.92 L 4.50-6.20 MIL/uL Hemoglobin 9.0 L 14.0-18.0 g/dL Hematocrit 27.1 L 42-54 % Mean Corpuscular Volume 92.8 79-99 fL Mean Corpuscular Hemoglobin 30.8 27.0-33.0 pg Mean Corpuscular Hemoglobin Concent 33.2 32.0-36.0 g/dL Red Cell Distribution Width 14.3 11.0-15.5 % Platelet Count 203 130-400 K/uL Mean Platelet Volume 10.1 7.5-10.5 fL Nucleated Red Blood Cells 0.0 0.0-0.19 % Sodium Level 139 136-145 mmol/L Potassium Level 4.1 3.5-5.1 mmol/L Chloride Level 105 101-111 mmol/L Carbon Dioxide Level 29 21-32 mmol/L Blood Urea Nitrogen 6 L 7-18 mg/dL Creatinine 0.8 0.5-1.3 mg/dL Glomerular Filtration Rate Calc 92 >90 mL/min Random Glucose 61 L 70-105 mg/dL Total Calcium 8.0 L 8.5-10.1 mg/dL Total Bilirubin 0.5 0.2-1.0 mg/dL Direct Bilirubin 0.1 0.0-0.3 mg/dL Aspartate Amino Transf (AST/SGOT) 16 10-37 U/L Alanine Aminotransferase (ALT/SGPT) 9 L 12-78 U/L Alkaline Phosphatase 85 50-136 U/L Total Protein 5.9 L 6.0-8.3 g/dL Albumin 2.8 L 3.5-5.0 g/dL Triglycerides Level 48 30-200 mg/dL Cholesterol Level 80 <200 mg/dL LDL Cholesterol 30 0-99 mg/dL HDL Cholesterol 44 29-71 mg/dL Vancomycin Level 9.4 L 20.0-30.0 mcg/mL Test 10/07/25 12:16 10/07/25 03:22 Range/Units Troponin I High Sensitivity 17 4-75 ng/L Immature Granulocyte % (Auto) 0.3 0-1 % Neutrophils (%) (Auto) 58.8 40.0-77.0 % Lymphocytes (%) (Auto) 27.7 21.0-51.0 % Monocytes (%) (Auto) 9.7 3.0-13.0 % Eosinophils (%) (Auto) 3.0 0.0-8.0 % Basophils (%) (Auto) 0.5 0.0-5.0 % Neutrophils # (Auto) 4.5 1.8-7.7 K/uL Lymphocytes # (Auto) 2.1 1.0-4.8 K/uL Monocytes # (Auto) 0.7 0.1-1.0 K/uL Eosinophils # (Auto) 0.23 0.00-0.70 K/uL Basophils # (Auto) 0.04 0.00-0.20 K/uL Absolute Immature Granulocyte (auto 0.02 0-1 K/uL Phosphorus Level 2.9 2.5-4.9 mg/dL Magnesium Level 1.80 1.80-2.40 mg/dL Thyroid Stimulating Hormone (TSH) 4.34 H 0.36-3.74 uIU/mL Free Thyroxine (T4) Direct 1.08 0.76-1.46 ng/dL Free Triiodothyronine (T3) pg/mL 1.86 L 2.18-3.98 pg/mL DIAGNOSTICS / RADIOLOGY: [ ] ATIENT: NEELIMA CADENA ACCT: [id number] LOC: [facility] U: [id number] AGE/SX: 75/M ROOM: 330 RE09/26/[address]: EAGLE MONTOYA MD : 1950 BED: 1 DIS: 09/29/25 STATUS: DIS IN TLOC: SPEC: [id number] VIVIANA: 09/28/25 STATUS: COMP REQ: [id number] RECD: 09/28/[address] [facility] [address]: NEELIMA RICKS MD SOURCE: CALF ENTR: 09/28/[address]: [facility]INGH [facility]EREA [facility] EAGLE FERNANDEZ MD, JAMIE ROCKY ORDERED: JAYDEN CULTURE, AEROBIC CULTURE COMMENTS: RIGHT CALF Procedure Result Ignacia Date-Time ANAEROBIC CULTURE Final 10/02/25-0531 [facility] COLONY DESCRIPTION: REPORT 1: NO ANAEROBES AT 24-35 HOURS; STUDIES TO CONTINUE REPORT 2: NO ANAEROBES AT 48-59 HOURS; STUDIES TO CONTINUE REPORT 3: NO ANAEROBES AT 72-96 HOURS Test(s) performed by: [facility] [address] [place] [address] CONTINUED ON NEXT PAGE RUN DATE: 10/02/25 [facility] PAGE 2 RUN TIME: 06 [id number] [address], [place] [address] Department of Laboratories CLIA # [id number] [employer] Sales Manager: Johnny Reeves DO Specimen Report SPEC: [id number] PATIENT: NEELIMA CADENA [id number] (Continued) Procedure Result Ignacia Date-Time AEROBIC CULTURE Final 10/02/25-0620 [facility] COLONY DESCRIPTION: REPORT 1: 2+ GRAM NEGATIVE RODS IDENTIFICATION AND SENSITIVITY TO FOLLOW REPORT 2: STUDIES TO CONTINUE REPORT 3: 1+ GRAM POSITIVE COCCI IN CHAINS POSSIBLE ENTEROCOCCUS SPECIES . IDENTIFICATION AND SENSITIVITY TO FOLLOW NO FURTHER WORK-UP DONE ENTEROCOCCUS FAECALIS PSEUDOMONAS AERUGINOSA SERRATIA MARCESCENS E FAECALIS P. Aerugin M.I.C. RX M.I.C. RX --------- ---- --------- ---- AMPICILLIN <=2 S AZTREONAM CEFTAZIDIME 4 S CEFTAZIDIME/AVIBACTAM CEFTRIAXONE CIPROFLOXACIN GENTAMICIN LEVOFLOXACIN VANCOMYCIN 2 S GENTAMICIN Synergy Screen <=500 S MEROPENEM PENICILLIN 2 S PIPERACILLIN/TAZOBACTAM <=8 S TRIMETHOPRIM/SUFLAMETHOXAZOLE CONTINUED ON NEXT PAGE RUN DATE: 10/02/25 [facility] PAGE 3 RUN TIME: 1586 [id number] [address], [place] [address] Department of [employer] CLIA # [id number] [employer] Sales Manager: Johnny Reeves DO Specimen Report SPEC: [id number] PATIENT: NEELIMA CADENA [id number] (Continued) Procedure Result Ignacia Date-Time -- AEROBIC CULTURE Final (continued) 10/02/25-619 [facility] --------- ---- AMPICILLIN AZTREONAM >16 R CEFTAZIDIME >16 R CEFTAZIDIME/AVIBACTAM <=8 S CEFTRIAXONE <=1 S CIPROFLOXACIN <=0.25 S GENTAMICIN <=2 S LEVOFLOXACIN <=0.5 S VANCOMYCIN GENTAMICIN Synergy Screen MEROPENEM <=1 S PENICILLIN PIPERACILLIN/TAZOBACTAM <=8 S TRIMETHOPRIM/SUFLAMETHOXAZOLE <=2/38 S ASSESSMENT: Right lower extremity ulcer with polymicrobial infection, Enterococcus faecalis, Pseudomonas aeruginosa and Serratia marcescens resulted on 10/02/2025. Bilateral lower extremity cellulitis. Diabetes mellitus. Obesity. Iron-deficiency Anemia. PLAN: Continue vancomycin per pharmacy protocol. Continue cefepime IV. Patient is to continue on vancomycin and cefepime for 2 more weeks on discharge. Continue GI prophylaxis. Continue wound care. Continue pain management. This case was reviewed and discussed with my supervising physician Dr. Perea and the above assessment and plan was formulated and agreed upon. ATTESTATION BY PHYSICIAN I have seen and examined the patient. I reviewed the documentation, medical decision making, and treatment plan as noted by the mid-level provider above. I agree with the findings and plan of care. SINGH PEREA MD, MIRTA L [facility] Oct 08, 2025 18:19
[2025-10-08 20:00] VITALS: BP 142/79; PULSE 83; RESP 18; TEMP 98
[2025-10-08] MEDS: VANCOMYCIN 1G/250ML KIT 250 ML IV SCH (20:12)
--- NOTE | 2025-10-08 20:45 | NUR ---
CARE REPORT GIVEN TO RAFAELA ASHLEY. RAFAELA ASHLEY TAKING OVER CARE PER HS.
[2025-10-09] VITALS (8 sets, daily range): BP systolic 127–158; BP diastolic 64–70; PULSE 77–94; RESP 16–20; TEMP 97.6–98; O2SAT 96
[2025-10-09 04:22] LABS: NUCLEATED RED BLOOD CELLS 0.0 % (0.0-0.19); PLATELET COUNT (AUTO) 187.0 K/uL (130-400); RED BLOOD CELL COUNT(AUTO) 3.01 MIL/uL (4.50-6.20); RED CELL DISTRIBUTION WIDTH 14.3 % (11.0-15.5); WHITE BLOOD COUNT (AUTO) 7.9 K/uL (4.8-10.8)
[2025-10-09 04:41] LABS: ASPARTATE AMINOTRANSFERASE 15.0 U/L (10-37); CREATININE 0.9 mg/dL (0.5-1.3); GLOMERULAR FILTR. RATE CALC 89.0 mL/min (>90); GLUCOSE,RANDOM 100.0 mg/dL (70-105); SODIUM SERUM 136.0 mmol/L (136-145); TOTAL PROTEIN, SERUM 6.2 g/dL (6.0-8.3); UREA NITROGEN, BLOOD 8.0 mg/dL (7-18)
--- NOTE | 2025-10-09 11:56 | HMCIMG ---
EXAM: CT Chest Without IV contrast. CLINICAL HISTORY: Chest pain on left side; rule out rib injury. TECHNIQUE: Axial computed tomography images of the chest were obtained without intravenous contrast. COMPARISON: CR Chest 1 view 10/06/2025 17:10 EST. FINDINGS: LUNGS: There are bilateral subpleural ground-glass opacities with associated fine reticular infiltrates, most pronounced in the lower lobes, without focal consolidation, discrete pulmonary mass, or endobronchial lesion. PLEURAL SPACES: No pleural effusion or pneumothorax is identified. HEART: Cardiac size is within normal limits with no significant pericardial effusion. There are atherosclerotic calcifications in the aorta and coronary arteries. LYMPH NODES: No mediastinal, hilar, or axillary lymphadenopathy is demonstrated. UPPER ABDOMEN: The visualized upper abdominal solid organs are unremarkable on this limited noncontrast examination. BONES: Acute or subacute fractures of the right seventh, eighth, and ninth ribs are present along the anterolateral arcs, with minimal displacement and without associated large chest wall hematoma. Age-appropriate degenerative thoracic spondylosis is present without aggressive osseous lesion. IMPRESSION: * Bilateral subpleural ground-glass and fine reticular opacities, predominantly in the lower lobes, compatible with early or mild interstitial lung disease, edema, or inflammatory/infectious process in the appropriate clinical context; correlation with clinical status and consideration of follow-up high-resolution CT may be useful if clinically warranted. No pulmonary infiltrates or pleural effusions. * Acute or subacute anterolateral fractures of the right seventh, eighth, and ninth ribs without pneumothorax or pleural effusion. * Atherosclerosis and coronary artery disease. /[place]
[2025-10-09] MEDS: LACTULOSE 20 GM/30 ML UDCUP PO PRN (13:36)
--- NOTE | 2025-10-09 16:17 | PN ---
[facility] PROGRESS NOTE Date of Service: Oct 09, 2025 Time of Service: 16:04 SUBJECTIVE: Mr. Cadena is a 75-year-old male with past medical history significant for type 2 diabetes mellitus, hypertension, and hypothyroidism who presented to the emergency department with chest pain. The pain was described as a bit fixed sensation, rated 9/10 in intensity, located over the left 5th to 6th rib area inferior to the chest. Symptoms began approximately1 week prior and were intermittent in nature on the day of presentation, the pain was associated with shortness of breath, prompting the patient to seek medical evaluation. In the emergency department, patient's CBC, CMP, troponin levels, and chest x- ray were unremarkable. Patient has been admitted for chest pain. 10/07/2025: The patient was seen in room 422 without family present. The patient experienced a hypoglycemic episode with blood glucose dropping to 43 mg/dL. He was placed on the hypoglycemic protocol with subsequent improvement and the glucose levels are currently stable at 125 mg/dL. The patient reports similar episodes at home characterized by dizziness and diaphoresis that improved with oral intake these episodes were felt to be possibly related to Glimepiride which has been since discontinued. We did a repeat EKG which demonstrated no ischemic changes. The patient subsequently underwent an upper GI series which revealed a small hiatal hernia with grade 1 esophageal reflux. He was started on pantoprazole 40 mg IV twice daily. Patient is also being treated for cellulitis with vancomycin and cefepime as part of an outpatient IV antibiotic regimen and Infectious Disease has been consulted. He is scheduled to undergo a barium swallow study tomorrow to assess aspiration risk and det ermine appropriate diet advancement. The patient remains NPO at this time. 10/08/2025: The patient was seen in room 422 without family present. Patient had a speech study performed this morning and they recommended; Food Consiste ncy: Oral Intake; Diet Recommendations: Soft & Bite Sized, Mildly Thick; Pills' Administration Recommendations: Whole 1 per Swallow; Swallow Strategies and Precautions: Sitting Upright (90 deg), No Straw, Upright 30 min after meal, Small Bites and Sips, Slow Rate. So we started him on heart healthy diet with the above recommendation. Modified barium swallow study is not performed over the weekend and have to wait until Friday. The patient still complains of pain in the left side of the chest so we ordered a CT chest without contrast to see if there is any soft tissue injury. The test has been performed waiting on the report. Patient continues to get vancomycin and cefepime for his cellulitis. Wound Care has been consulted. 10/09/2025: The patient is seen and evaluated in the room 422. He complained of chest pain, shortness of breath, abdominal pain but they are improving. His vital signs are in the normal range. His labs are normal except for hemoglobin 9.1, glucose 188. His Ct chest showed that acute or subacute anterolateral fractures of the right seventh, eighth, and ninth ribs without pneumothorax or pleural effusion, Bilateral subpleural ground-glass and fine reticular opacities, predominantly in the lower lobes, compatible with early or mild interstitial lung disease, edema, or inflammatory/infectious process. We are waiting for the Modified barium swallow study which is to be done on Friday. REVIEW OF SYSTEMS CONSTITUTIONAL: Denies fevers, chills, or night sweats. No unintentional weight loss reported. NEUROLOGICAL: Denies headache, motor weakness, sensory deficit, ve rtigo/spinning sensation, gait abnormalities, or tremors. ENT: No hearing loss, rhinitis, rhinorrhea, hoarseness, or sore throat. CARDIOVASCULAR: Chest pain Denies any exertional angina, dyspnea on exertion, orthopnea, paroxysmal nocturnal dyspnea, palpitations PULMONARY: Denies any, cough, phlegm/sputum, hemoptysis, pleuritic chest pain, shortness of breath GASTROINTESTINAL: abdominal pain, Denies any type of dysphagia to either liquids or solids. Denies nausea, vomiting, diarrhea, constipation, or changes in stool consistency or caliber. GENITOURINARY: Denies frequency, urgency, nocturia, hematuria or incontinence. ENDOCRINOLOGIC: Denies polyuria, polydipsia, polyphagia or heat/cold intolerances. DERMATOLOGIC: Denies rashes or pruritus. PHYSICAL EXAM GENERAL APPEARANCE: The patient is awake, alert, and oriented, in no acute cardiopulmonary distress. NEUROLOGICAL: Motor is 5/5 in bilateral upper and lower extremities proximal to distal. No sensory deficits. HEENT: Face is symmetric. Pupils are equal and reactive. Extraocular movements are intact. NECK: Supple. No JVD. No thyromegaly. No submental, submandibular, pre- /postauricular, occipital or supraclavicular lymphadenopathy. CHEST: Normal chest expansion. On Telemetry. Tenderness on the left side LUNGS: Absence of any rales, rhonchi or any wheezing. CARDIOVASCULAR: Regular. S1 and S2 normal. No appreciable rubs, murmurs or gallops. ABDOMEN: Soft, epigastric tenderness, and nondistended. There is no rebound, voluntary guarding, or rigidity. : Deferred. No Burns. EXTREMITIES: Non-edematous and not cyanotic. No clubbing. Left lower leg edema +2 SKIN: Cellulitis covered by bandages on the right leg Vital Signs (last 8hr) Date Time Temp Pulse Resp B/P (MAP) Pulse Ox O2 Delivery O2 Flow Rate FiO2 10/09/25 12:00 97.5 82 17 147/66 98 Room Air 10/09/25 08:06 96 Room Air* 0 21 LABS: Laboratory: Test 10/09/25 15:56 10/09/25 03:45 10/08/25 09:13 10/08/25 04:15 Range/Units Whole Blood Glucose 188 H 70-110 MG/DL Bedside Glucose Comment Notified Nurse White Blood Count 7.9 4.8-10.8 K/uL Red Blood Count 3.01 L 4.50-6.20 MIL/uL Hemoglobin 9.1 L 14.0-18.0 g/dL Hematocrit 27.8 L 42-54 % Mean Corpuscular Volume 92.4 79-99 fL Mean Corpuscular Hemoglobin 30.2 27.0-33.0 pg Mean Corpuscular Hemoglobin Concent 32.7 32.0-36.0 g/dL Red Cell Distribution Width 14.3 11.0-15.5 % Platelet Count 187 130-400 K/uL Mean Platelet Volume 10.2 7.5-10.5 fL Nucleated Red Blood Cells 0.0 0.0-0.19 % Sodium Level 136 136-145 mmol/L Potassium Level 3.8 3.5-5.1 mmol/L Chloride Level 104 101-111 mmol/L Carbon Dioxide Level 30 21-32 mmol/L Blood Urea Nitrogen 8 7-18 mg/dL Creatinine 0.9 0.5-1.3 mg/dL Glomerular Filtration Rate Calc 89 >90 mL/min Random Glucose 100 # 70-105 mg/dL Total Calcium 8.0 L 8.5-10.1 mg/dL Total Bilirubin 0.5 0.2-1.0 mg/dL Direct Bilirubin 0.1 0.0-0.3 mg/dL Aspartate Amino Transf (AST/SGOT) 15 10-37 U/L Alanine Aminotransferase (ALT/SGPT) 10 L 12-78 U/L Alkaline Phosphatase 81 50-136 U/L Total Protein 6.2 6.0-8.3 g/dL Albumin 2.9 L 3.5-5.0 g/dL Iron Level 50 #L 65-175 mcg/dL Total Iron Binding Capacity 282 250-450 mcg/dL Percent Iron Saturation 17.7 L 30-44 % Triglycerides Level 48 30-200 mg/dL Cholesterol Level 80 <200 mg/dL LDL Cholesterol 30 0-99 mg/dL HDL Cholesterol 44 29-71 mg/dL Test 10/07/25 19:00 Range/Units Vancomycin Level 9.4 L 20.0-30.0 mcg/mL Current Medications Medications (Trade) Dose Ordered Sig/Cyndi Route PRN Reason Start Time Stop Time Status Last Admin Dose Admin Acetaminophen (TYLenol 325MG TAB) 650 mg Q6H PRN PO TEMPERATURE GREATER THAN 101.5 10/06/25 22:30 11/05/25 22:29 Atorvastatin Calcium (LIPItor 10MG) 10 mg HS PO 10/07/25 21:00 11/06/25 20:59 10/08/25 20:13 10 MG Cefepime HCl (MAXipime 1 GM vial) 1 gm Q8H IVPB 10/07/25 13:00 10/17/25 12:59 10/09/25 13:36 1 GM Dextrose (D50w) 50 ml AD PRN IV HYPOGLYCEMIA PROTOCOL 10/07/25 07:00 11/06/25 06:59 10/07/25 12:32 50 ML Enoxaparin Sodium (Lovenox) 40 mg DAILY SQ 10/07/25 09:00 11/06/25 08:59 10/09/25 08:51 40 MG Famotidine (Pepcid 20mg Vial) 20 mg DAILY IV 10/07/25 09:00 10/07/25 10:26 DC 10/07/25 08:14 20 MG Ferrous Sulfate (Ferrous Sulfate) 325 mg DAILY PO 10/08/25 09:00 11/07/25 08:59 10/09/25 08:50 325 MG Glucagon (Glucagon 1mg Kit) 1 mg AD PRN IM HYPOGLYCEMIA PROTOCOL 10/07/25 07:00 11/06/25 06:59 Home Med (Home Medication) QWEEK PO 10/14/25 09:00 11/13/25 08:59 Hydralazine HCl (APRESOLine 20MG INJ) 10 mg Q6H PRN IV For:SBP above 160;DBP above 90 10/06/25 22:30 11/05/25 22:29 Insulin Human Regular (humuLIN R 100 UNIT/ML 3ML) INSULIN SLIDING SCAL... ACHS SQ 10/07/25 07:30 11/06/25 07:29 10/08/25 20:44 2 UNIT Lactulose (Constulose 20gm/ 30ml Udcup) 20 gm BID PRN PO CONSTIPATION 10/06/25 22:30 11/05/25 22:29 10/09/25 13:36 20 GM Levothyroxine Sodium (SYNTHroid 25MCG TAB) 25 mcg ACBKFST PO 10/08/25 07:30 11/07/25 07:29 10/09/25 05:57 25 MCG Lisinopril (Prinivil 5mg) 5 mg DAILY PO 10/08/25 09:00 11/07/25 08:59 10/09/25 08:50 5 MG Nitroglycerin (Nitroglycerin 1gm Oint) 0.5 inch Q8H TD 10/06/25 22:30 10/09/25 22:29 10/09/25 13:36 0.5 INCH Nitroglycerin (Nitrostat) 0.4 mg AD PRN SL CHEST PAIN 10/06/25 19:00 11/05/25 18:59 10/06/25 20:47 0.4 MG Ondansetron HCl (zoFRAN 4MG INJ) 4 mg Q6H PRN IV NAUSEA/VOMITING 10/06/25 22:30 11/05/25 22:29 Pantoprazole Sodium (PROTonix 40MG INJ) 40 mg BID IVP 10/07/25 21:00 11/06/25 20:59 10/09/25 08:50 40 MG Pantoprazole Sodium (PROTonix 40MG TAB) 40 mg BID PO 10/07/25 21:00 10/07/25 18:59 DC Sodium Chloride 1,000 ml @ 100 mls/hr Q10H IV 10/06/25 22:30 11/05/25 22:29 10/09/25 08:51 100 MLS/HR Tamsulosin HCl (FloMAX) 0.4 mg HS PO 10/07/25 21:00 11/06/25 20:59 10/08/25 20:13 0.4 MG Vancomycin HCl 250 ml @ 125 mls/hr DAILY20 IV 10/07/25 20:00 10/07/25 20:23 DC Vancomycin HCl 250 ml @ 125 mls/hr DAILY20 IV 10/08/25 20:00 10/18/25 19:59 10/08/25 20:12 125 MLS/HR Vancomycin HCl 250 ml @ 125 mls/hr Q12H IV 10/07/25 14:00 10/07/25 13:53 DC Vancomycin HCl 250 ml @ 125 mls/hr Q12H IV 10/08/25 04:00 10/08/25 06:06 DC 10/07/25 20:40 125 MLS/HR Vancomycin HCl 250 ml @ 125 mls/hr Q12H IV 10/08/25 09:00 10/08/25 09:01 DC Vancomycin HCl (Vancomycin 1g/ 250ml Kit) 1 gm DAILY20 IV 10/07/25 20:00 10/07/25 13:31 DC DIAGNOSTICS / RADIOLOGY: [address] [address] IMAGING REPORT Signed PATIENT: NEELIMA CADENA MR#: [id number] : 1950 SEX: M AGE: 75 LOCATION: 4DH ORDER 110 STATUS: ADM IN REPORT#: [id number] SERVICE 110 REASON: chest pain on left side, rule out rib injury ORDERING PHYSICIAN: CARL PALMER MD PROCEDURE: CHEST WO - CT CHEST W/O CONTRAST EXAM: CT Chest Without IV contrast. CLINICAL HISTORY: Chest pain on left side; rule out rib injury. TECHNIQUE: Axial computed tomography images of the chest were obtained without intravenous contrast. COMPARISON: CR Chest 1 view 10/06/2025 17:10 EST. FINDINGS: LUNGS: There are bilateral subpleural ground-glass opacities with associated fine reticular infiltrates, most pronounced in the lower lobes, without focal consolidation, discrete pulmonary mass, or endobronchial lesion. PLEURAL SPACES: No pleural effusion or pneumothorax is identified. HEART: Cardiac size is within normal limits with no significant pericardial effusion. There are atherosclerotic calcifications in the aorta and coronary arteries. LYMPH NODES: No mediastinal, hilar, or axillary lymphadenopathy is demonstrated. UPPER ABDOMEN: The visualized upper abdominal solid organs are unremarkable on this limited noncontrast examination. BONES: Acute or subacute fractures of the right seventh, eighth, and ninth ribs are present along the anterolateral arcs, with minimal displacement and without associated large chest wall hematoma. Age-appropriate degenerative thoracic spondylosis is present without aggressive osseous lesion. IMPRESSION: * Bilateral subpleural ground-glass and fine reticular opacities, predominantly in the lower lobes, compatible with early or mild interstitial lung disease, edema, or inflammatory/infectious process in the appropriate clinical context; correlation with clinical status and consideration of follow-up high-resolution CT may be useful if clinically warranted. No pulmonary infiltrates or pleural effusions. * Acute or subacute anterolateral fractures of the right seventh, eighth, and ninth ribs without pneumothorax or pleural effusion. * Atherosclerosis and coronary artery disease. /[employer] DICTATED BY: JEANNETTE SAHU MD DATE: 10/09/251255 ELECTRONICALLY SIGNED BY: JEANNETTE SAHU MD DATE: 10/09/251255 ASSESSMENT: Chest pain likely due to GERD Type 2 diabetes mellitus Small hiatal hernia with grade 1 esophageal reflux Cellulitis of lower limb PLAN: Chest pain likely due to GERD: * Patient's EKG in the ER shows Sinus tachycardia, repeat EKG shows no ischemic changes * Troponin trending in the normal levels, chest x-ray shows no acute cardiopulmonary pathology * Patient is tender in the epigastric region and says the chest pain increased with eating * Patient is tender on the left side of his chest, chest CT has been ordered to check for soft tissue injury and it showed acute or subacute anterolateral fractures of the right seventh, eighth, and ninth ribs without pneumothorax or pleural effusion, Type 2 diabetes mellitus: * Patient had hypoglycemic episode in the hospital with his sugar levels dropping as low as 43 * Patient initiated on hypoglycemia protocol, which improved his glucose levels, currently at 125 * Patient has these episodes at home as well, so discontinued glimepiride with the patient was on * Patient on insulin sliding scale Cellulitis of lower limb: * Patient getting outpatient IV medications of vancomycin and cefepime for his cellulitis * We will continue medication in the hospital * ID has been consulted Small hiatal hernia with grade 1 esophageal reflux: * Patient is tender in the epigastric region and says the chest pain increased with eating * Patient underwent upper GI series which showed small hiatal hernia with grade 1 esophageal reflux * Patient is started on pantoprazole 40 mg IV b.i.d. GI prophylaxis with pantoprazole 40 mg b.i.d. DVT prophylaxis with enoxaparin sodium 40 mg SQ We will request labs in am Further orders to follow depending on above results ATTESTATION BY PHYSICIAN I have seen and examined the patient. I reviewed the documentation, medical decision making, and treatment plan as noted by the resident physician above. I agree with the findings and plan of care. ALEJA IZQUIERDO MD, AKSHAY MD Oct 09, 2025 16:17
[2025-10-10] VITALS: BP 128/62; PULSE 75; RESP 16; TEMP 97.9
[2025-10-10 04:00] VITALS: BP 122/57; PULSE 81; RESP 16; TEMP 98.4
[2025-10-10 04:41] LABS: NUCLEATED RED BLOOD CELLS 0.0 % (0.0-0.19); PLATELET COUNT (AUTO) 171.0 K/uL (130-400); RED BLOOD CELL COUNT(AUTO) 2.76 MIL/uL (4.50-6.20); RED CELL DISTRIBUTION WIDTH 14.3 % (11.0-15.5); WHITE BLOOD COUNT (AUTO) 6.4 K/uL (4.8-10.8)
[2025-10-10 05:03] LABS: ASPARTATE AMINOTRANSFERASE 16.0 U/L (10-37); CREATININE 0.9 mg/dL (0.5-1.3); GLOMERULAR FILTR. RATE CALC 89.0 mL/min (>90); GLUCOSE,RANDOM 81.0 mg/dL (70-105); SODIUM SERUM 139.0 mmol/L (136-145); TOTAL PROTEIN, SERUM 5.7 g/dL (6.0-8.3); UREA NITROGEN, BLOOD 7.0 mg/dL (7-18)
[2025-10-10 08:00] VITALS: BP 130/66; PULSE 84; RESP 18; TEMP 97.9
[2025-10-10 08:09] VITALS: O2SAT 98
--- NOTE | 2025-10-10 09:03 | EKG ---
[facility] Test Date: 2025-10-07 Test Time: 11:55:37 Pat Name: NEELIMA CADENA Department[facility] Room: 422 1 Gender: M Freedom Of Information Officer: JASBIR : 1950 Requested By: CARL PALMER Order Number: [id number] Reading MD: Yves Franco Measurements Intervals [place] Rate: 72 P: 43 ND: 120 QRS: -18 QRSD: 80 T: 12 QT: 412 QTc: 451 Interpretive Statements Sinus rhythm with premature atrial complexes Cannot rule out Anterior infarct , Possible STEMI Compared to ECG 10/06/2025 17:01:54 Atrial premature complex(es) now present Myocardial infarct finding now present Sinus tachycardia no longer present Electronically Signed On 10-10-2025 19:06:23 [employer] by Yves Franco Please click the below link to view image of tracing.
--- NOTE | 2025-10-10 10:49 | PN ---
INFECTIOUS DISEASE FOLLOWUP NOTE DATE OF SERVICE: 10/09/2025 SUBJECTIVE: The patient was seen and examined at bedside. No fever. No chills. No nausea. No vomiting. No diarrhea. No abdominal pain. No bleeding tendencies. No rashes or itchiness. No depression. No suicidal ideation. The patient denies any neck pain or neck swelling. Tolerating orally. PHYSICAL EXAMINATION: VITALS: Temperature today 98.9. HEENT: Eyes, no icterus. Pupil equal and reactive. No oral thrush. Moist oral mucosa. NECK: Supple. No JVD or thyromegaly. LUNGS: Good air entry. No rales. No rhonchi. CARDIOVASCULAR: S1 and S2, regular. No murmur heard. ABDOMEN: Obese, soft and nontender. Bowel sounds are present. CENTRAL NERVOUS SYSTEM: Awake, alert and oriented x3. No focal deficits. SKIN: No rashes, no itchiness. LYMPHATIC: No peripheral lymphadenopathy. BACK: No deformity. No pressure ulcer. MUSCULOSKELETAL: No joint swelling. No erythema or tenderness. EXTREMITIES: Ulcers with edema involving the right lower extremity is improving. ASSESSMENT: A 75-year-old male admitted with chest pain. Current problem include: * Left lower extremity cellulitis. * Right leg ulcer. * Diabetes mellitus. * Morbid obesity. PLAN: * Continue wound care. * Continue pain management. * Continue vancomycin. * Continue cefepime. * Continue GI prophylaxis. * Continue nutritional support. * Monitor electrolytes. * The patient will be follow up closely. TID: [id number] RECEIPT: [id number]
[2025-10-10 12:00] VITALS: BP 165/77; PULSE 81; RESP 18; TEMP 97.7
--- NOTE | 2025-10-10 13:52 | PN ---
[facility] PROGRESS NOTE Date of Service: Oct 10, 2025 Time of Service: 13:52 SUBJECTIVE: Mr. Krishna is a 75-year-old male with past medical history significant for type 2 diabetes mellitus, hypertension, and hypothyroidism who presented to the emergency department with chest pain. The pain was described as a bit fixed sensation, rated 9/10 in intensity, located over the left 5th to 6th rib area inferior to the chest. Symptoms began approximately1 week prior and were intermittent in nature on the day of presentation, the pain was associated with shortness of breath, prompting the patient to seek medical evaluation. In the emergency department, patient's CBC, CMP, troponin levels, and chest x- ray were unremarkable. Patient has been admitted for chest pain. 10/07/2025: The patient was seen in room 422 without family present. The patient experienced a hypoglycemic episode with blood glucose dropping to 43 mg/dL. He was placed on the hypoglycemic protocol with subsequent improvement and the glucose levels are currently stable at 125 mg/dL. The patient reports similar episodes at home characterized by dizziness and diaphoresis that improved with oral intake these episodes were felt to be possibly related to Glimepiride which has been since discontinued. We did a repeat EKG which demonstrated no ischemic changes. The patient subsequently underwent an upper GI series which revealed a small hiatal hernia with grade 1 esophageal reflux. He was started on pantoprazole 40 mg IV twice daily. Patient is also being treated for cellulitis with vancomycin and cefepime as part of an outpatient IV antibiotic regimen and Infectious Disease has been consulted. He is scheduled to undergo a barium swallow study tomorrow to assess aspiration risk and det ermine appropriate diet advancement. The patient remains NPO at this time. 10/08/2025: The patient was seen in room 422 without family present. Patient had a speech study performed this morning and they recommended; Food Consiste ncy: Oral Intake; Diet Recommendations: Soft & Bite Sized, Mildly Thick; Pills' Administration Recommendations: Whole 1 per Swallow; Swallow Strategies and Precautions: Sitting Upright (90 deg), No Straw, Upright 30 min after meal, Small Bites and Sips, Slow Rate. So we started him on heart healthy diet with the above recommendation. Modified barium swallow study is not performed over the weekend and have to wait until Friday. The patient still complains of pain in the left side of the chest so we ordered a CT chest without contrast to see if there is any soft tissue injury. The test has been performed waiting on the report. Patient continues to get vancomycin and cefepime for his cellulitis. Wound Care has been consulted. 10/09/2025: The patient is seen and evaluated in the room 422. He complained of chest pain, shortness of breath, abdominal pain but they are improving. His vital signs are in the normal range. His labs are normal except for hemoglobin 9.1, glucose 188. His Ct chest showed that acute or subacute anterolateral fractures of the right seventh, eighth, and ninth ribs without pneumothorax or pleural effusion, Bilateral subpleural ground-glass and fine reticular opacities, predominantly in the lower lobes, compatible with early or mild interstitial lung disease, edema, or inflammatory/infectious process. We are waiting for the Modified barium swallow study which is to be done on Friday. REVIEW OF SYSTEMS CONSTITUTIONAL: Denies fevers, chills, or night sweats. No unintentional weight loss reported. NEUROLOGICAL: Denies headache, motor weakness, sensory deficit, ve rtigo/spinning sensation, gait abnormalities, or tremors. ENT: No hearing loss, rhinitis, rhinorrhea, hoarseness, or sore throat. CARDIOVASCULAR: Chest pain Denies any exertional angina, dyspnea on exertion, orthopnea, paroxysmal nocturnal dyspnea, palpitations PULMONARY: Denies any, cough, phlegm/sputum, hemoptysis, pleuritic chest pain, shortness of breath GASTROINTESTINAL: abdominal pain, Denies any type of dysphagia to either liquids or solids. Denies nausea, vomiting, diarrhea, constipation, or changes in stool consistency or caliber. GENITOURINARY: Denies frequency, urgency, nocturia, hematuria or incontinence. ENDOCRINOLOGIC: Denies polyuria, polydipsia, polyphagia or heat/cold intolerances. DERMATOLOGIC: Denies rashes or pruritus. PHYSICAL EXAM GENERAL APPEARANCE: The patient is awake, alert, and oriented, in no acute cardiopulmonary distress. NEUROLOGICAL: Motor is 5/5 in bilateral upper and lower extremities proximal to distal. No sensory deficits. HEENT: Face is symmetric. Pupils are equal and reactive. Extraocular movements are intact. NECK: Supple. No JVD. No thyromegaly. No submental, submandibular, pre- /postauricular, occipital or supraclavicular lymphadenopathy. CHEST: Normal chest expansion. On Telemetry. Tenderness on the left side LUNGS: Absence of any rales, rhonchi or any wheezing. CARDIOVASCULAR: Regular. S1 and S2 normal. No appreciable rubs, murmurs or gallops. ABDOMEN: Soft, epigastric tenderness, and nondistended. There is no rebound, voluntary guarding, or rigidity. : Deferred. No Burns. EXTREMITIES: Non-edematous and not cyanotic. No clubbing. Left lower leg edema +2 SKIN: Cellulitis covered by bandages on the right leg Vital Signs (last 8hr) Date Time Temp Pulse Resp B/P (MAP) Pulse Ox O2 Delivery O2 Flow Rate FiO2 10/10/25 12:00 97.7 81 18 165/77 98 Room Air 10/10/25 08:09 98 Room Air* 0 21 10/10/25 08:00 97.9 84 18 130/66 98 Room Air LABS: Laboratory: Test 10/10/25 11:07 10/10/25 04:21 10/09/25 15:56 Range/Units Whole Blood Glucose 159 #H 70-110 MG/DL White Blood Count 6.4 4.8-10.8 K/uL Red Blood Count 2.76 L 4.50-6.20 MIL/uL Hemoglobin 8.3 L 14.0-18.0 g/dL Hematocrit 25.7 L 42-54 % Mean Corpuscular Volume 93.1 79-99 fL Mean Corpuscular Hemoglobin 30.1 27.0-33.0 pg Mean Corpuscular Hemoglobin Concent 32.3 32.0-36.0 g/dL Red Cell Distribution Width 14.3 11.0-15.5 % Platelet Count 171 130-400 K/uL Mean Platelet Volume 10.1 7.5-10.5 fL Nucleated Red Blood Cells 0.0 0.0-0.19 % Sodium Level 139 136-145 mmol/L Potassium Level 3.9 3.5-5.1 mmol/L Chloride Level 107 101-111 mmol/L Carbon Dioxide Level 28 21-32 mmol/L Blood Urea Nitrogen 7 7-18 mg/dL Creatinine 0.9 0.5-1.3 mg/dL Glomerular Filtration Rate Calc 89 >90 mL/min Random Glucose 81 70-105 mg/dL Total Calcium 7.8 L 8.5-10.1 mg/dL Total Bilirubin 0.4 0.2-1.0 mg/dL Direct Bilirubin 0.1 0.0-0.3 mg/dL Aspartate Amino Transf (AST/SGOT) 16 10-37 U/L Alanine Aminotransferase (ALT/SGPT) 11 L 12-78 U/L Alkaline Phosphatase 74 50-136 U/L Total Protein 5.7 L 6.0-8.3 g/dL Albumin 2.6 L 3.5-5.0 g/dL Bedside Glucose Comment Notified Nurse Current Medications Medications (Trade) Dose Ordered Sig/Cyndi Route PRN Reason Start Time Stop Time Status Last Admin Dose Admin Acetaminophen (TYLenol 325MG TAB) 650 mg Q6H PRN PO TEMPERATURE GREATER THAN 101.5 10/06/25 22:30 11/05/25 22:29 Atorvastatin Calcium (LIPItor 10MG) 10 mg HS PO 10/07/25 21:00 11/06/25 20:59 10/09/25 20:28 10 MG Cefepime HCl (MAXipime 1 GM vial) 1 gm Q8H IVPB 10/07/25 13:00 10/17/25 12:59 10/10/25 05:04 1 GM Dextrose (D50w) 50 ml AD PRN IV HYPOGLYCEMIA PROTOCOL 10/07/25 07:00 11/06/25 06:59 10/07/25 12:32 50 ML Enoxaparin Sodium (Lovenox) 40 mg DAILY SQ 10/07/25 09:00 11/06/25 08:59 10/10/25 08:28 40 MG Famotidine (Pepcid 20mg Vial) 20 mg DAILY IV 10/07/25 09:00 10/07/25 10:26 DC 10/07/25 08:14 20 MG Ferrous Sulfate (Ferrous Sulfate) 325 mg DAILY PO 10/08/25 09:00 11/07/25 08:59 10/10/25 08:28 325 MG Glucagon (Glucagon 1mg Kit) 1 mg AD PRN IM HYPOGLYCEMIA PROTOCOL 10/07/25 07:00 11/06/25 06:59 Home Med (Home Medication) QWEEK PO 10/14/25 09:00 11/13/25 08:59 Hydralazine HCl (APRESOLine 20MG INJ) 10 mg Q6H PRN IV For:SBP above 160;DBP above 90 10/06/25 22:30 11/05/25 22:29 Insulin Human Regular (humuLIN R 100 UNIT/ML 3ML) INSULIN SLIDING SCAL... ACHS SQ 10/07/25 07:30 11/06/25 07:29 10/09/25 20:30 4 UNIT Lactulose (Constulose 20gm/ 30ml Udcup) 20 gm BID PRN PO CONSTIPATION 10/06/25 22:30 11/05/25 22:29 10/09/25 13:36 20 GM Levothyroxine Sodium (SYNTHroid 25MCG TAB) 25 mcg ACBKFST PO 10/08/25 07:30 10/10/25 07:41 DC 10/10/25 06:05 25 MCG Levothyroxine Sodium (SYNTHroid 25MCG TAB) 25 mcg SYN PO 10/11/25 06:30 11/07/25 07:29 Lisinopril (Prinivil 5mg) 5 mg DAILY PO 10/08/25 09:00 11/07/25 08:59 10/10/25 08:28 5 MG Nitroglycerin (Nitroglycerin 1gm Oint) 0.5 inch Q8H TD 10/06/25 22:30 10/09/25 22:29 DC 10/09/25 13:36 0.5 INCH Nitroglycerin (Nitrostat) 0.4 mg AD PRN SL CHEST PAIN 10/06/25 19:00 11/05/25 18:59 10/06/25 20:47 0.4 MG Ondansetron HCl (zoFRAN 4MG INJ) 4 mg Q6H PRN IV NAUSEA/VOMITING 10/06/25 22:30 11/05/25 22:29 Pantoprazole Sodium (PROTonix 40MG INJ) 40 mg BID IVP 10/07/25 21:00 11/06/25 20:59 10/10/25 08:28 40 MG Pantoprazole Sodium (PROTonix 40MG TAB) 40 mg BID PO 10/07/25 21:00 10/07/25 18:59 DC Sodium Chloride 1,000 ml @ 100 mls/hr Q10H IV 10/06/25 22:30 11/05/25 22:29 10/10/25 05:04 100 MLS/HR Tamsulosin HCl (FloMAX) 0.4 mg HS PO 10/07/25 21:00 11/06/25 20:59 10/09/25 20:28 0.4 MG Vancomycin HCl 250 ml @ 125 mls/hr DAILY20 IV 10/07/25 20:00 10/07/25 20:23 DC Vancomycin HCl 250 ml @ 125 mls/hr DAILY20 IV 10/08/25 20:00 10/18/25 19:59 10/09/25 20:28 125 MLS/HR Vancomycin HCl 250 ml @ 125 mls/hr Q12H IV 10/07/25 14:00 10/07/25 13:53 DC Vancomycin HCl 250 ml @ 125 mls/hr Q12H IV 10/08/25 04:00 10/08/25 06:06 DC 10/07/25 20:40 125 MLS/HR Vancomycin HCl 250 ml @ 125 mls/hr Q12H IV 10/08/25 09:00 10/08/25 09:01 DC Vancomycin HCl (Vancomycin 1g/ 250ml Kit) 1 gm DAILY20 IV 10/07/25 20:00 10/07/25 13:31 DC DIAGNOSTICS / RADIOLOGY: [ ] ASSESSMENT: Chest pain likely due to GERD Type 2 diabetes mellitus Small hiatal hernia with grade 1 esophageal reflux Cellulitis of lower limb PLAN: Chest pain likely due to GERD: * Patient's EKG in the ER shows Sinus tachycardia, repeat EKG shows no ischemic changes * Troponin trending in the normal levels, chest x-ray shows no acute cardiopulmonary pathology * Patient is tender in the epigastric region and says the chest pain increased with eating * Patient is tender on the left side of his chest, chest CT has been ordered to check for soft tissue injury and it showed acute or subacute anterolateral fractures of the right seventh, eighth, and ninth ribs without pneumothorax or pleural effusion, Type 2 diabetes mellitus: * Patient had hypoglycemic episode in the hospital with his sugar levels dropping as low as 43 * Patient initiated on hypoglycemia protocol, which improved his glucose levels, currently at 125 * Patient has these episodes at home as well, so discontinued glimepiride with the patient was on * Patient on insulin sliding scale Cellulitis of lower limb: * Patient getting outpatient IV medications of vancomycin and cefepime for his c ellulitis * We will continue medication in the hospital * ID has been consulted Small hiatal hernia with grade 1 esophageal reflux: * Patient is tender in the epigastric region and says the chest pain increased with eating * Patient underwent upper GI series which showed small hiatal hernia with grade 1 esophageal reflux * Patient is started on pantoprazole 40 mg IV b.i.d. GI prophylaxis with pantoprazole 40 mg b.i.d. DVT prophylaxis with enoxaparin sodium 40 mg SQ We will request labs in am Further orders to follow depending on above results ESTEPHANIA OLMEDO MD Oct 10, 2025 13:52
--- NOTE | 2025-10-10 14:30 | NUR ---
[facility] Consult: Patient assessed by wound healing team. Patient with no wounds or skin breakdown noted. Assessment and recommendations provided to primary nurse. Education provided.
--- NOTE | 2025-10-10 14:57 | NUR ---
CM NOTE CM spoke to Dr. Amin regarding plan for patient. States patient is cleared to return to his clinic. CM obtained f/u appointment with [facility] for next infusion tomorrow at [address] Nesbitt. Also informed MD that MBSS has been cancelled and updated with speech therapist recommendations.
--- NOTE | 2025-10-10 15:49 | DS ---
Discharge Summary Hospital Course Summary: This is a 75-year-old male with past medical history of type 2 diabetes mellitus, hypertension, hypothyroidism who presented with 1 week of intermittent left-sided chest pain described as severe 10 and associated with shortness of breath. Initial ED evaluation including CBC CMP, troponins, EKG and chest x-ray were unremarkable and the patient was admitted for further evaluation of chest pain. During hospitalization, serial EKG and troponins showed no ischemic changes. CT chest without contrast revealed acute to subacute fractures of the right 7th, 8th, and 9th ribs without pneumothorax or pleural effusion, as well as bilateral subpleural ground-glass and fine reticular opacities predominantly in the lower lobes, suggestive of mild interstitial lung disease, edema or inflammatory/infectious process. Chest pain and shortness of breath gradually improved with conservative management. During admission, the patient experienced a hypoglycemic episode with a blood glucose of 43 mg/dL, requiring initiation of hypoglycemia protocol with prompt improvement. He also reported similar episodes at home, and glimepiride was identified as a likely cause and subsequently discontinued. Blood glucose levels remained stable thereafter. An upper GI series demonstrated a small hiatal hernia with grade 1 esophageal reflux, and the patient was started on pantoprazole. Due to concern for aspiration, speech therapy evaluated the patient and recommended a soft and bite size diet with mildly thick liquids, pills taken whole 1 at a time, upright position during and after meals, avoidance of stress in small bites and sips, slow rate of intake. Modified barium swallow could not be completed during the weekend and was subsequently cancelled. The patient was also continued on IV vancomycin and cefepime for bilateral lower extremity cellulitis as part of outpatient antibiotic regimen. ID and wound care services were consulted and patient remained clinically stable without signs of systemic in flexion. At the time of discharge vital signs are stable, chest pain and shortness of breaths were improving the patient was deemed appropriate for discharge to home. Patient was advised to follow up with the PCP in 2-3 days and to continue IV antibiotics at [facility] for a total of 2 weeks. Patient was advised to follow up with Gastroenterology for an outpatient modified barium swallow study. Patient was also instructed to discontinue glimepiride in the light of hypoglycemic episodes and to continue metformin 500 mg daily and insulin glargine 20 units twice daily. Patient instructed on observing for red flag signs like chest pain, shortness of breath, fevers, signs of infection at wound sites, difficulty swallowing or symptoms of hypoglycemia and return to ED if needed. Media Services Coordinator(s): Infectious disease, Dr. Perea Date of Service: Oct 08, 2025 SUBJECTIVE: This is a 75-year-old male patient who was recently discharged from this facility to continue outpatient IV antibiotics with [facility] with vancomycin and cefepime for 2 weeks for bilateral lower extremity cellulitis and right lower extremity wound with polymicrobial infection, Enterococcus faecalis, Pseudomonas aeruginosa and Serratia marcescens. On this admission patient presented with chief complaint of chest pain. Troponin were negative and a chest x-ray was negative. A GI series study reported aspiration into the trachea and the left main bronchus and grade 1 esophageal reflux with recommendation for speech therapy evaluation and to keep patient NPO. Patient however was evaluated by speech therapy this morning and has recommended a soft and bite size texture with mildly thick liquid based on recent MBS study done on 09/27/2025. During rounding today patient is awake, alert and oriented x3. Sitting up on the bedside chair having lunch and in no respiratory distress. Saturating 95-97% on room air. No fever and the WBC is 7.3. Continues on vancomycin and cefepime. Upon discharge patient will need to continue on current IV antibiotics for 2 more weeks. PHYSICAL EXAM EYES: Anicteric. Pupils equal and reactive. HENT: No oral thrush seen, moist Oral mucosa NECK: Supple, no JVD or thyromegaly. LUNGS: Good air entry. No rales, no rhonchi. CARDIOVASCULAR: S1, S2 regular. No murmur heard. ABDOMEN: Soft, non tender, bowel sounds present. CENTRAL NERVOUS SYSTEM: Awake, alert, oriented x 3. SKIN: No rashes, no swelling. Bilateral lower extremity cellulitis. LYMPHATICS: No peripheral lymphadenopathy MUSCULOSKELETAL: No joint swelling, erythema or tenderness. EXTREMITIES: No cyanosis or clubbing. Right lower extremity wound. BACK: No deformity, no pressure ulcer. GENITOURINARY: No dysuria or hematuria. Vital Sign (Last 12 Hours) 10/08/25 10/08/25 10/08/25 10/08/25 08:00 08:09 12:00 16:00 Temp 98.1 97.9 97.9 Pulse 88 74 89 Resp 16 17 17 B/P (MAP) 133/62 150/66 148/63 Pulse Ox 97 97 98 98 O2 Delivery Room Air Room Air* Room Air Room Air O2 Flow Rate 0 FiO2 21 Intake & Output (last 24hrs) 10/07/25 10/07/25 10/08/25 15:00 23:00 07:00 Output Total 700 ml 575 ml Balance -700 ml -575 ml LABS: Laboratory: Test 10/08/25 15:49 10/08/25 09:13 10/08/25 04:15 10/07/25 19:00 Range/Units Whole Blood Glucose 193 #H 70-110 MG/DL Bedside Glucose Comment Notified Nurse Iron Level 50 #L 65-175 mcg/dL Total Iron Binding Capacity 282 250-450 mcg/dL Percent Iron Saturation 17.7 L 30-44 % White Blood Count 7.3 4.8-10.8 K/uL Red Blood Count 2.92 L 4.50-6.20 MIL/uL Hemoglobin 9.0 L 14.0-18.0 g/dL Hematocrit 27.1 L 42-54 % Mean Corpuscular Volume 92.8 79-99 fL Mean Corpuscular Hemoglobin 30.8 27.0-33.0 pg Mean Corpuscular Hemoglobin Concent 33.2 32.0-36.0 g/dL Red Cell Distribution Width 14.3 11.0-15.5 % Platelet Count 203 130-400 K/uL Mean Platelet Volume 10.1 7.5-10.5 fL Nucleated Red Blood Cells 0.0 0.0-0.19 % Sodium Level 139 136-145 mmol/L Potassium Level 4.1 3.5-5.1 mmol/L Chloride Level 105 101-111 mmol/L Carbon Dioxide Level 29 21-32 mmol/L Blood Urea Nitrogen 6 L 7-18 mg/dL Creatinine 0.8 0.5-1.3 mg/dL Glomerular Filtration Rate Calc 92 >90 mL/min Random Glucose 61 L 70-105 mg/dL Total Calcium 8.0 L 8.5-10.1 mg/dL Total Bilirubin 0.5 0.2-1.0 mg/dL Direct Bilirubin 0.1 0.0-0.3 mg/dL Aspartate Amino Transf (AST/SGOT) 16 10-37 U/L Alanine Aminotransferase (ALT/SGPT) 9 L 12-78 U/L Alkaline Phosphatase 85 50-136 U/L Total Protein 5.9 L 6.0-8.3 g/dL Albumin 2.8 L 3.5-5.0 g/dL Triglycerides Level 48 30-200 mg/dL Cholesterol Level 80 <200 mg/dL LDL Cholesterol 30 0-99 mg/dL HDL Cholesterol 44 29-71 mg/dL Vancomycin Level 9.4 L 20.0-30.0 mcg/mL Test 10/07/25 12:16 10/07/25 03:22 Range/Units Troponin I High Sensitivity 17 4-75 ng/L Immature Granulocyte % (Auto) 0.3 0-1 % Neutrophils (%) (Auto) 58.8 40.0-77.0 % Lymphocytes (%) (Auto) 27.7 21.0-51.0 % Monocytes (%) (Auto) 9.7 3.0-13.0 % Eosinophils (%) (Auto) 3.0 0.0-8.0 % Basophils (%) (Auto) 0.5 0.0-5.0 % Neutrophils # (Auto) 4.5 1.8-7.7 K/uL Lymphocytes # (Auto) 2.1 1.0-4.8 K/uL Monocytes # (Auto) 0.7 0.1-1.0 K/uL Eosinophils # (Auto) 0.23 0.00-0.70 K/uL Basophils # (Auto) 0.04 0.00-0.20 K/uL Absolute Immature Granulocyte (auto 0.02 0-1 K/uL Phosphorus Level 2.9 2.5-4.9 mg/dL Magnesium Level 1.80 1.80-2.40 mg/dL Thyroid Stimulating Hormone (TSH) 4.34 H 0.36-3.74 uIU/mL Free Thyroxine (T4) Direct 1.08 0.76-1.46 ng/dL Free Triiodothyronine (T3) pg/mL 1.86 L 2.18-3.98 pg/mL DIAGNOSTICS / RADIOLOGY: [ ] ATIENT: NEELIMA CADENA ACCT: [id number] LOC: 3A U: [id number] AGE/SX: 75/M ROOM: 330 RE09/26/[address]: EAGLE MONTOYA MD : 1950 BED: 1 DIS: 09/29/25 STATUS: DIS IN TLOC: SPEC: [id number] VIVIANA: 09/28/25-1342 STATUS: COMP REQ: [id number] RECD: 09/28/[address]: NEELIMA RICKS MD SOURCE: CALF ENTR: 09/28/25 [facility] DR: [facility] EAGLE MON[facility] MD, JAMIE ROCKY ORDERED: JAYDEN CULTURE, AEROBIC CULTURE COMMENTS: RIGHT CALF Procedure Result Ignacia Date-Time ANAEROBIC CULTURE Final 10/02/25-5985 MRL COLONY DESCRIPTION: REPORT 1: NO ANAEROBES AT 24-35 HOURS; STUDIES TO CONTINUE REPORT 2: NO ANAEROBES AT 48-59 HOURS; STUDIES TO CONTINUE REPORT 3: NO ANAEROBES AT 72-96 HOURS Test(s) performed by: [facility] [address] [place] [address] CONTINUED ON NEXT PAGE RUN DATE: 10/02/25 [facility] PAGE 2 RUN TIME: [address] [address], [place] [address] Department of Laboratories CLIA # [id number] Coffee Taster: Johnny Reeves DO Specimen Report SPEC: [id number] PATIENT: NEELIMA CADENA [id number] (Continued) Procedure Result Ignacia Date-Time AEROBIC CULTURE Final 10/02/25-0620 MRL COLONY DESCRIPTION: REPORT 1: 2+ GRAM NEGATIVE RODS IDENTIFICATION AND SENSITIVITY TO FOLLOW REPORT 2: STUDIES TO CONTINUE REPORT 3: 1+ GRAM POSITIVE COCCI IN CHAINS POSSIBLE ENTEROCOCCUS SPECIES . IDENTIFICATION AND SENSITIVITY TO FOLLOW NO FURTHER WORK-UP DONE ENTEROCOCCUS FAECALIS PSEUDOMONAS AERUGINOSA SERRATIA MARCESCENS E FAECALIS P. Aerugin M.I.C. RX M.I.C. RX --------- ---- --------- ---- AMPICILLIN <=2 S AZTREONAM CEFTAZIDIME 4 S CEFTAZIDIME/AVIBACTAM CEFTRIAXONE CIPROFLOXACIN GENTAMICIN LEVOFLOXACIN VANCOMYCIN 2 S GENTAMICIN Synergy Screen <=500 S MEROPENEM PENICILLIN 2 S PIPERACILLIN/TAZOBACTAM <=8 S TRIMETHOPRIM/SUFLAMETHOXAZOLE CONTINUED ON NEXT PAGE RUN DATE: 10/02/25 [facility] PAGE 3 RUN TIME: [address] [place] [address] [facility] # [id number] Coffee Taster: Johnny Reeves DO Specimen Report SPEC: [id number] PATIENT: NEELIMA CADENA [id number] (Continued) Procedure Result Ignacia Date-Time AEROBIC CULTURE Final (continued) 10/02/25-619 JUANPABLO Plata RX --------- ---- AMPICILLIN AZTREONAM >16 R CEFTAZIDIME >16 R CEFTAZIDIME/AVIBACTAM <=8 S CEFTRIAXONE <=1 S CIPROFLOXACIN <=0.25 S GENTAMICIN <=2 S LEVOFLOXACIN <=0.5 S VANCOMYCIN GENTAMICIN Synergy Screen MEROPENEM <=1 S PENICILLIN PIPERACILLIN/TAZOBACTAM <=8 S TRIMETHOPRIM/SUFLAMETHOXAZOLE <=2/38 S ASSESSMENT: Right lower extremity ulcer with polymicrobial infection, Enterococcus faecalis, Pseudomonas aeruginosa and Serratia marcescens resulted on 10/02/2025. Bilateral lower extremity cellulitis. Diabetes mellitus. Obesity. Iron-deficiency Anemia. PLAN: Continue vancomycin per pharmacy protocol. Continue cefepime IV. Patient is to continue on vancomycin and cefepime for 2 more weeks on discharge. Continue GI prophylaxis. Continue wound care. Continue pain management. This case was reviewed and discussed with my supervising physician Dr. Perea and the above assessment and plan was formulated and agreed upon. ATTESTATION BY PHYSICIAN I have seen and examined the patient. I reviewed the documentation, medical decision making, and treatment plan as noted by the mid-level provider above. I agree with the findings and plan of care. SINGH PEREA MD, MIRTA L FNP Oct 08, 2025 18:19 Electronically Signed by: COCO CHATMAN, CLIVE10/08/25 1819 Electronically Co-Signed by: SINGH PEREA MD10/09/25 175 Procedure(s): PATIENT: NEELIMA CADENA MR#: [id number] : 1950 SEX: M AGE: 75 LOCATION: [facility] ORDER 170 STATUS: REG ER REPORT#: [id number] SERVICE 170 REASON: cp ORDERING PHYSICIAN: WOLFGANG SOARES CNP PROCEDURE: CXR1VW - CHEST 1VW EXAM: CR Chest, 1 View. CLINICAL HISTORY: cp COMPARISON: None provided. FINDINGS: PICC overlies the expected location of the right axillary vessels. LUNGS: There is no mass, infiltrate, or acute pulmonary abnormality. PLEURAL SPACES: No evidence of pleural effusion or pneumothorax. MEDIASTINUM: The cardiomediastinal silhouette is within normal limits. BONES: No aggressive appearing osseous lesion seen. IMPRESSION: No acute cardiopulmonary pathology is evident. /[place] DICTATED BY: ZAID JONES Jr., MD DATE: 10/06/251925 ELECTRONICALLY SIGNED BY: ZAID JONES Jr., MD DATE: 10/06/251925 PATIENT: NEELIMA CADENA MR#: [id number] : 1950 SEX: M AGE: 75 LOCATION: [facility] ORDER 1503 STATUS: ADM IN REPORT#: [id number] SERVICE 1501 REASON: SEVERE ACID REFLUX WITH EPIGASTRIC PAIN ORDERING PHYSICIAN: CARL PALMER MD PROCEDURE: UGI WO KUB - UPPER GI TRACT, WO KUB DOUBLE CONTRAST UPPER GI SERIES: Finding: The study was performed using provocative maneuvers After swallowing effervescent crystal and thick barium, there is no definite intrinsic or extrinsic lesion seen in the esophagus. There is a small hiatal hernia with grade 1 esophageal reflux. At the edges study patient is noted to have aspiration into the trachea and the left main bronchus. The stomach is normal in size, shape, and configuration. The rugal folds appear to be normal. The duodenal bulb, duodenal sweep, and upper jejunum appear to be normal. Fluoroscopy time: 2.1 minutes IMPRESSION: Patient is noted during the study to have aspiration into the trachea and the left main bronchus Small hiatal hernia with grade 1 esophageal reflux I would recommend a modified barium swallow with speech pathologist and to keep patient nothing by mouth. DICTATED BY: JG ARROYO MD DATE: 10/07/251520 ELECTRONICALLY SIGNED BY: JG ARROYO MD DATE: 10/07/251524 PATIENT: NEELIMA CADENA MR#: [id number] : 1950 SEX: M AGE: 75 LOCATION: [facility] ORDER 08 STATUS: ADM IN REPORT#: [id number] SERVICE 06 REASON: chest pain on left side, rule out rib injury ORDERING PHYSICIAN: CARL PALMER MD PROCEDURE: CHEST WO - CT CHEST W/O CONTRAST EXAM: CT Chest Without IV contrast. CLINICAL HISTORY: Chest pain on left side; rule out rib injury. TECHNIQUE: Axial computed tomography images of the chest were obtained without intravenous contrast. COMPARISON: CR Chest 1 view 10/06/2025 17:10 EST. FINDINGS: LUNGS: There are bilateral subpleural ground-glass opacities with associated fine reticular infiltrates, most pronounced in the lower lobes, without focal consolidation, discrete pulmonary mass, or endobronchial lesion. PLEURAL SPACES: No pleural effusion or pneumothorax is identified. HEART: Cardiac size is within normal limits with no significant pericardial effusion. There are atherosclerotic calcifications in the aorta and coronary arteries. LYMPH NODES: No mediastinal, hilar, or axillary lymphadenopathy is demonstrated. UPPER ABDOMEN: The visualized upper abdominal solid organs are unremarkable on this limited noncontrast examination. BONES: Acute or subacute fractures of the right seventh, eighth, and ninth ribs are present along the anterolateral arcs, with minimal displacement and without associated large chest wall hematoma. Age-appropriate degenerative thoracic spondylosis is present without aggressive osseous lesion. IMPRESSION: * Bilateral subpleural ground-glass and fine reticular opacities, predominantly in the lower lobes, compatible with early or mild interstitial lung disease, edema, or inflammatory/infectious process in the appropriate clinical context; correlation with clinical status and consideration of follow-up high-resolution CT may be useful if clinically warranted. No pulmonary infiltrates or pleural effusions. * Acute or subacute anterolateral fractures of the right seventh, eighth, and ninth ribs without pneumothorax or pleural effusion. * Atherosclerosis and coronary artery disease. /[place] DICTATED BY: JEANNETTE SAHU MD DATE: 10/09/25 125 ELECTRONICALLY SIGNED BY: JEANNETTE SAHU MD DATE: 10/09/251255 Assessment/Plan: ASSESSMENT: Chest pain likely due to GERD, resolved Type 2 diabetes mellitus Small hiatal hernia with grade 1 esophageal reflux Bilateral Cellulitis of lower limb Iron deficiency Anemia Right lower extremity ulcer with polymicrobial infection with Enterococcus faecalis, Pseudomonas aeruginosa and Serratia marcescens resulted on 10/02/2025 Discharge Instructions: ADMISSION DATE : 10/06/2025 DISCHARGE DATE: 10/10/2025 DISPOSITION : Home CONDITION : Stable WETLAND SCIENTIST(S) : Dr. Perea FOLLOW UP APPOINTMENT(S) : f/u with PCP in one 2-3 days PROCEDURES: IMAGING (S) : report attached to summary MICROBIOLOGY : report attached to summary ACTIVITY : ad nabila HOME MEDICATIONS : Continued Home Medications: Active Scripts Lisinopril (Lisinopril) 5 Mg Tablet, 1 TAB PO DAILY for 30 Days, #30 TAB 1 Refill Prov:SAEED IRELAND MD 09/29/25 Pantoprazole Sodium (Protonix) 40 Mg Tablet.dr, 40 MG PO DAILY for 30 Days, #30 TAB Prov:NEELIMA ROPER Jr., MD 11/20/21 Albuterol Sulfate (Ventolin Hfa/Proventil Hfa/Proair Hfa) 90 Mcg/Puff Puff, 0 INH IH Q6H for 30 Days, #1 INH 0 Refills Used together with spacer Prov:NEELIMA ROPER Jr., MD 11/20/21 Reported Medications Insulin Glargine,Hum.rec.anlog (Lantus Solostar) 100 Unit/Ml (3 Ml) Insuln.pen, 20 UNIT SQ BID for 30 Days, ML 0 Refills 10/06/25 Cholecalciferol (Vitamin D3) 1,250 Mcg (10435 Unit) Cap, 1 CAP PO QWEEK for 28 Days, #4 CAP 0 Refills 10/06/25 Metformin HCl (Metformin HCl) 500 Mg Tablet, 1 TAB PO DAILY for 30 Days, #60 TAB 0 Refills 09/27/25 Ferrous Sulfate (Ferrous Sulfate) 325 Mg Tablet, 325 MG PO DAILY, TAB 11/13/21 Levothyroxine Sodium (Levothyroxine) 25 Mcg Capsule, 25 MCG PO ACBKFST, CAP 11/13/21 Tamsulosin HCl (Flomax) 0.4 Mg Cap.er.24h, 0.4 MG PO HS, CAPSULE.DR 11/13/21 Atorvastatin Calcium (Atorvastatin Calcium) 10 Mg Tablet, 10 MG PO HS, TAB 11/13/21 Aspirin (ASPIRIN 81 MG ECTAB) 81 Mg Ectab, 81 MG PO DAILY, TAB.EC 11/13/21 Discontinued Reported Medications Glimepiride (Glimepiride) 4 Mg Tablet, 4 MG PO DAILY, TAB 11/13/21 Continued Medications: Albuterol Sulfate (Ventolin Hfa/Proventil Hfa/Proair Hfa) 90 Mcg/Puff Puff 0 INH IH Q6H for 30 Days, #1 INH 0 Refills Used together with spacer Aspirin (Aspirin 81 Mg Ectab) 81 Mg Ectab 81 MG PO DAILY, TAB.EC Atorvastatin Calcium (Atorvastatin Calcium) 10 Mg Tablet 10 MG PO HS, TAB Cholecalciferol (Vitamin D3) 1,250 Mcg (08921 Unit) Cap 1 CAP PO QWEEK for 28 Days, #4 CAP 0 Refills Ferrous Sulfate (Ferrous Sulfate) 325 Mg Tablet 325 MG PO DAILY, TAB Insulin Glargine,Hum.rec.anlog (Lantus Solostar) 100 Unit/Ml (3 Ml) Insuln.pen 20 UNIT SQ BID for 30 Days, ML 0 Refills Levothyroxine Sodium (Levothyroxine) 25 Mcg Capsule 25 MCG PO ACBKFST, CAP Lisinopril (Lisinopril) 5 Mg Tablet 1 TAB PO DAILY for 30 Days, #30 TAB 1 Refill Metformin HCl (Metformin HCl) 500 Mg Tablet 1 TAB PO DAILY for 30 Days, #60 TAB 0 Refills Pantoprazole Sodium (Protonix) 40 Mg Tablet.dr 40 MG PO DAILY for 30 Days, #30 TAB Tamsulosin HCl (Flomax) 0.4 Mg Cap.er.24h 0.4 MG PO HS, CAPSULE.DR Discontinued Medications: Glimepiride (Glimepiride) 4 Mg Tablet 4 MG PO DAILY, TAB Time spent arranging discharge: 1-30 minutes ATTESTATION BY PHYSICIAN I have seen and examined the patient. I reviewed the documentation, medical decision making, and treatment plan as noted by the resident physician above. I agree with the findings and plan of care. ALEJA IZQUIERDO MD, HARSHAVARDHA MD Oct 10, 2025 15:49
--- NOTE | 2025-10-10 15:58 | NUR ---
DISCHARGE INSTRUCTIONS GIVEN TO PATIENT REGARDING FOLLOW UP APPOINTMENTS AND EDUCATION. PT VERBALIZED UNDERSTANDING. IV CATHETER REMOVED AND INTACT. PT PENDING PRIVATE CAR TRANSPORTATION ARRIVAL. NO FURTHER COMMENTS.
[2025-10-10 16:29] VITALS: BP 152/87; PULSE 88; RESP 20; TEMP 98.8
--- NOTE | 2025-10-10 16:30 | NUR ---
SPEECH NOTE: DIRECTOR OF RECRUITING coordinated with nurse Monte. As per nurse, patient tolerating diet recommendations of soft and bite sized solids, mildly thick liquids with no s/s of aspiration. Pt discharging at this time from facility. All questions answered. Addendum: 10/11/[address] [facility]SHLEY GIRALDO Amended: Links added.
--- NOTE | 2025-10-11 03:48 | PN ---
INFECTIOUS DISEASE FOLLOWUP NOTE DATE OF SERVICE: 10/10/2025. SUBJECTIVE: The patient is seen and examined at bedside today. The patient has no fever or chills. No nausea or vomiting. No bleeding tendency. No palpitation or orthopnea. Denied depression or suicidal ideation. . No rashes . PHYSICAL EXAMINATION: VITAL SIGNS: Temperature today 97.6. EYES: No icterus. Pupils equal and reactive. HENT: No oral thrush seen. Moist oral mucosa. NECK: Supple. No JVD or thyromegaly. LUNGS: Good air entry. No rales. No rhonchi. CARDIOVASCULAR: S1 and S2, regular. No murmur heard. ABDOMEN: Obese, soft, nontender. Bowel sounds heard. CENTRAL NERVOUS SYSTEM: Awake, alert, and oriented x 3. No focal deficits. SKIN: No rashes. LYMPHATIC: No peripheral lymphadenopathy. BACK: No deformity. No pressure ulcer. EXTREMITIES: No cellulitis involving the right leg. ASSESSMENT: A 75-year-old male. * Right leg ulcer. * Left leg ulcer. * Obesity. * Hypertension. * Diabetes mellitus. PLAN: * Continue telemetry. * Continue nutrition as above. * Continue deep vein thrombosis prophylaxis. * . TID: [id number] RECEIPT: [id number]
[2025-10-14] MEDS ORDERED: Cholecalciferol (Vitamin D3) PO SCH (09:00)
== END 2025-10-10 16:24 | disposition home or self-care (01) | DRG 392 ==
LOC: EDH 16:54 → EDHIP 20:20 → 4DH 10-07 01:29
PROVIDERS: ADMIT Internal Medicine; ATTEND Internal Medicine
DX: K21.9 Gastro-esophageal reflux disease without esophagitis (principal); S22.41XA Multiple fractures of ribs, right side, initial encounter for closed fracture; L03.115 Cellulitis of right lower limb; L97.918 Non-pressure chronic ulcer of unspecified part of right lower leg with other specified severity; J84.9 Interstitial pulmonary disease, unspecified; D50.9 Iron deficiency anemia, unspecified; E11.649 Type 2 diabetes mellitus with hypoglycemia without coma; L03.116 Cellulitis of left lower limb; E03.9 Hypothyroidism, unspecified; I10 Essential (primary) hypertension; E66.01 Morbid (severe) obesity due to excess calories; L97.928 Non-pressure chronic ulcer of unspecified part of left lower leg with other specified severity; K44.9 Diaphragmatic hernia without obstruction or gangrene; F41.9 Anxiety disorder, unspecified; I25.10 Atherosclerotic heart disease of native coronary artery without angina pectoris; X58.XXXA Exposure to other specified factors, initial encounter; Z79.82 Long term (current) use of aspirin; Z81.8 Family history of other mental and behavioral disorders; Z82.0 Family history of epilepsy and other diseases of the nervous system; Z82.3 Family history of stroke; Z82.49 Family history of ischemic heart disease and other diseases of the circulatory system; Z82.5 Family history of asthma and other chronic lower respiratory diseases; Z83.3 Family history of diabetes mellitus; Z95.5 Presence of coronary angioplasty implant and graft; Z68.34 Body mass index [BMI] 34.0-34.9, adult; Y93.89 Activity, other specified; Y92.89 Other specified places as the place of occurrence of the external cause; Y99.8 Other external cause status
CPT/HCPCS: 36415; 71045; 71250; 74240; 80048; 80061; 80076; 80202; 82948; 83036; 83540; 83550; 83690; 83735; 83880; 84100; 84439; 84443; 84481; 84484; 85025; 85027; 92610; 93005; 96374; 99285; G0378; J0692; J1650; J1815; J2470; J3373; J7030; J7070; J1308